=== PATIENT | male | born 1945 | race Caucasian/White ===

== ENCOUNTER 2017-06-16 15:47 | Emergency (ER) | payer MEDICARE, SELFPAY | END 2017-06-16 16:40 | disposition left against medical advice (07) | PROVIDERS: Emergency Provider Nurse Practitioner Family; PCP Internal Medicine Adolescent Medicine | DX: Z53.29 Procedure and treatment not carried out because of patient's decision for other reasons (principal) ==

== ENCOUNTER → 2017-11-04 13:00 | Outpatient (CLI) | payer MEDICARE, SELFPAY ==
--- NOTE | 2017-11-04 13:05 | XR_ITS ---
XR foot LT min 3V HISTORY: Pain and swelling of the toes ITS.REASON: DMII , INFECTION IN TOE ORDERING PHYSICIAN: Bushra Mccarty PATIENT AGE: 72 years COMPARISON: None FINDINGS: Paravertebral deformity involves the second toe. There is some cortical erosive change involving the distal aspect of the distal phalanx of the second toe suggesting osteomyelitis. No obvious soft tissue gas. No fracture or dislocation. IMPRESSION: Hammertoe deformity of the second toe with erosive change involving the tuft of the distal phalanx consistent with osteomyelitis
== END ==
PROVIDERS: PCP Internal Medicine Adolescent Medicine; Visit Provider Nurse Practitioner Family
DX: L08.9 Local infection of the skin and subcutaneous tissue, unspecified (principal); E11.9 Type 2 diabetes mellitus without complications
CPT/HCPCS: 73630

== ENCOUNTER 2017-11-07 12:20 | Outpatient (CLI) | payer MEDICARE, SELFPAY ==
[2017-11-07] VITALS (7 sets, daily range): BP systolic 117–133; BP diastolic 71–83; PULSE 65–83; RESP 18; TEMP 36.8; O2SAT 96; BMI 37.1
[2017-11-07 13:25] LABS: Anion Gap 17.2 mEq/L (5-15); Blood Urea Nitrogen 20 mg/dL (7-18); Calcium 9.9 mg/dL (8.5-10.1); Carbon Dioxide 23 mmol/L (21.0-32.0); Chloride 103 mmol/L (98-107); Creatinine Clearance Estimated 110 mL/min (0-300); Creatinine,Serum 1.12 mg/dL (0.70-1.30); Estimated Glomerular Filt Rate 64 ml/min (>60); GFR (African American) 78 ML/MIN (>60); Glucose 115 mg/dL (74-106); Sodium 139 mmol/L (136-145)
[2017-11-07 13:27] LABS: Potassium 4.2 mmoL/L (3.5-5.1)
--- NOTE | 2017-11-07 15:28 | XR_ITS ---
XR chest portable PICC plac HISTORY: ITS.REASON: PICC line placement ORDERING PHYSICIAN: Jignesh Madsen MD PATIENT AGE: 72 years COMPARISON: 06/06/2012 FINDINGS: Left upper extremity PICC line tip is in good position in the region superior vena cava. Unremarkable cardiovascular structures with clear lungs. 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 IMPRESSION: PICC line in good position
--- NOTE | 2017-11-09 09:51 | HMH.PHACONS ---
- Pharmacy Consult Date: 11/07/17 Time: 13:00 Referring provider: DR. SHEEHAN Reason for Consult:: VANCOMYCIN DOSING Allergies and ADEs:: Allergies Allergy/AdvReac Type Severity Reaction Status Date / Time tetanus and diphtheria Allergy Unknown Verified 11/07/17 16:00 toxoids [TETANUS AND DIPHTHERIA TOXOIDS] Home Medications:: Home Medications Medication Instructions Recorded Confirmed Type alprazolam 0.5 mg tablet 0.5 mg PO BID 30 Days #90 11/07/17 11/08/17 History dutasteride 0.5 mg capsule 0.5 mg PO HS 90 Days 11/07/17 11/08/17 History fenofibrate nanocrystallized 145 145 mg PO DAILY 90 Days 11/07/17 11/08/17 History mg tablet fluticasone 250 mcg-salmeterol 50 1 puff INHALATION BID 30 Days 11/07/17 11/08/17 History mcg/dose blistr powdr for inhalation fluticasone 50 mcg/actuation nasal 1 spray INTRANASAL NEEDED PRN 11/07/17 11/08/17 History spray,suspension 30 Days levothyroxine 175 mcg tablet 175 mcg PO DAILY 30 Days 11/07/17 11/08/17 History lvxaza-ullhuygs-mkfzcmz 1 cap PO AC 30 Days 11/07/17 11/08/17 History 24,000-76,000-120,000 unit capsule,delayed rel losartan 25 mg tablet 25 mg PO DAILY 30 Days 11/07/17 11/08/17 History montelukast 10 mg tablet 10 mg PO DAILY 30 Days 11/07/17 11/08/17 History tamsulosin 0.4 mg capsule 0.4 mg PO HS 90 Days 11/07/17 11/08/17 History Height: 1.91 m Weight: 134.717 kg Laboratory Results:: N/A Assessment and Plan - Assessment and plan all Dx Assessment and Plan for all problems:: BASED ON PATIENT FACTORS, RECOMMEND STARTING DOSE OF VANCOMYCIN 2,500MG IV ONCE ON 11/07/17 FOLLOWED BY 2,000MG IV BID STARTING ON 11/08/17. PHARMACY WILL OBTAIN TROUGH LEVEL PRIOR TO AM DOSE ON 11/09/17. PHARMACY WILL CONTINUE TO FOLLOW AND ADJUST DOSE NEEDED. -BRYAN MANRIQUEZ, JONATHAND
--- NOTE | 2017-11-09 09:56 | P.CONPHA_ITS ---
- Pharmacy Consult Date: 11/07/17 Time: 13:00 Referring provider: DR. SHEEHAN Reason for Consult:: VANCOMYCIN DOSING Allergies and ADEs:: Allergies Allergy/AdvReac Type Severity Reaction Status Date / Time tetanus and diphtheria Allergy Unknown Verified 11/07/17 16:00 toxoids [TETANUS AND DIPHTHERIA TOXOIDS] Home Medications:: Home Medications Medication Instructions Recorded Confirmed Type alprazolam 0.5 mg tablet 0.5 mg PO BID 30 Days #90 11/07/17 11/08/17 History dutasteride 0.5 mg capsule 0.5 mg PO HS 90 Days 11/07/17 11/08/17 History fenofibrate nanocrystallized 145 145 mg PO DAILY 90 Days 11/07/17 11/08/17 History mg tablet fluticasone 250 mcg-salmeterol 50 1 puff INHALATION BID 30 Days 11/07/17 History mcg/dose blistr powdr for inhalation fluticasone 50 mcg/actuation nasal 1 spray INTRANASAL NEEDED PRN 11/07/17 History spray,suspension 30 Days levothyroxine 175 mcg tablet 175 mcg PO DAILY 30 Days 11/07/17 11/08/17 History mzzgxh-zxrfglnh-bjkfjja 1 cap PO AC 30 Days 11/07/17 11/08/17 History 24,000-76,000-120,000 unit capsule,delayed rel losartan 25 mg tablet 25 mg PO DAILY 30 Days 11/07/17 11/08/17 History montelukast 10 mg tablet 10 mg PO DAILY 30 Days 11/07/17 11/08/17 History tamsulosin 0.4 mg capsule 0.4 mg PO HS 90 Days 11/07/17 11/08/17 History Height: 1.91 m Weight: 134.717 kg Laboratory Results:: N/A Assessment and Plan - Assessment and plan all Dx Assessment and Plan for all problems:: BASED ON PATIENT FACTORS, RECOMMEND STARTING DOSE OF VANCOMYCIN 2,500MG IV ONCE ON 11/07/17 FOLLOWED BY 2,000MG IV BID STARTING ON 11/08/17. PHARMACY WILL OBTAIN TROUGH LEVEL PRIOR TO AM DOSE ON 11/09/17. PHARMACY WILL CONTINUE TO FOLLOW AND ADJUST DOSE NEEDED. -BRYAN MANRIQUEZ, JONATHAND
== END 2017-11-07 17:10 | disposition home or self-care (01) ==
LOC: INF 12:32
PROVIDERS: PCP Internal Medicine Adolescent Medicine; Visit Provider Internal Medicine Adolescent Medicine
DX: M86.9 Osteomyelitis, unspecified (principal); L97.524 Non-pressure chronic ulcer of other part of left foot with necrosis of bone; L03.032 Cellulitis of left toe
CPT/HCPCS: 36569; 71045; 80048; 96365; 96366; C1751; J3370

== ENCOUNTER → 2017-11-08 08:18 | Outpatient (CLI) | payer MEDICARE, SELFPAY ==
[2017-11-08 08:38] VITALS: BP 125/80; PULSE 81; RESP 18; TEMP 36.3; O2SAT 97
[2017-11-08 09:10] VITALS: BP 125/78; PULSE 69; RESP 18; TEMP 36.6; O2SAT 97
[2017-11-08 09:40] VITALS: BP 151/74; PULSE 63; RESP 18; O2SAT 96
[2017-11-08 10:10] VITALS: BP 129/76; PULSE 72; RESP 16; TEMP 36.6; O2SAT 98
[2017-11-08 10:40] VITALS: BP 132/80; PULSE 75; RESP 18
[2017-11-08 11:10] VITALS: BP 124/72; PULSE 74; RESP 18; TEMP 36.6; O2SAT 97
== END ==
PROVIDERS: PCP Internal Medicine Adolescent Medicine; Visit Provider Internal Medicine Adolescent Medicine
DX: M86.9 Osteomyelitis, unspecified (principal); L97.524 Non-pressure chronic ulcer of other part of left foot with necrosis of bone; L03.032 Cellulitis of left toe
CPT/HCPCS: 96365; 96366; J3370

== ENCOUNTER → 2017-11-09 08:41 | Outpatient (CLI) | payer MEDICARE, SELFPAY ==
[2017-11-09] VITALS (9 sets, daily range): BP systolic 91–130; BP diastolic 64–79; PULSE 69–103; RESP 18–20; TEMP 36.4–36.7; O2SAT 95–98; BMI 37.1
[2017-11-09 09:11] LABS: Vancomycin,Trough 17.2 mcg/ml (10.0-20.0)
--- NOTE | 2017-11-09 09:17 | PC.NURSE ---
11/09/17 0915 Spoke with Patrick, Pharm D/ informed today's [facility] 17.2
--- NOTE | 2017-11-09 09:20 | HMH.PHACONS ---
- Pharmacy Consult Date: 11/09/17 Time: 09:20 Referring provider: DR. KIMBLE Reason for Consult:: VANCOMYCIN TROUGH LEVEL Allergies and ADEs:: Allergies Allergy/AdvReac Type Severity Reaction Status Date / Time tetanus and diphtheria Allergy Unknown Verified 11/07/17 16:00 toxoids [TETANUS AND DIPHTHERIA TOXOIDS] Home Medications:: Home Medications Medication Instructions Recorded Confirmed Type alprazolam 0.5 mg tablet 0.5 mg PO BID 30 Days #90 11/07/17 11/08/17 History dutasteride 0.5 mg capsule 0.5 mg PO HS 90 Days 11/07/17 11/08/17 History fenofibrate nanocrystallized 145 145 mg PO DAILY 90 Days 11/07/17 11/08/17 History mg tablet fluticasone 250 mcg-salmeterol 50 1 puff INHALATION BID 30 Days 11/07/17 11/08/17 History mcg/dose blistr powdr for inhalation fluticasone 50 mcg/actuation nasal 1 spray INTRANASAL NEEDED PRN 11/07/17 11/08/17 History spray,suspension 30 Days levothyroxine 175 mcg tablet 175 mcg PO DAILY 30 Days 11/07/17 11/08/17 History pnspbx-cfyxgqgn-zvtddob 1 cap PO AC 30 Days 11/07/17 11/08/17 History 24,000-76,000-120,000 unit capsule,delayed rel losartan 25 mg tablet 25 mg PO DAILY 30 Days 11/07/17 11/08/17 History montelukast 10 mg tablet 10 mg PO DAILY 30 Days 11/07/17 11/08/17 History tamsulosin 0.4 mg capsule 0.4 mg PO HS 90 Days 11/07/17 11/08/17 History Height: 1.91 m Weight: 134.717 kg Laboratory Results:: Laboratory Results - last 24 hr 11/09/17 08:47: Vancomycin Trough 17.2 Medical History: Reports:: Asthma, Hyperlipidemia, Hypertension Assessment and Plan - Assessment and plan all Dx Assessment and Plan for all problems:: BASED ON PATIENT'S VANCOMYCIN TROUGH LEVEL OF 17.3 MCG/ML, RECOMMEND CONTINUING WITH CURRENT DOSE OF VANCOMYCIN 2000 MG DAILY AT THIS TIME. PHARMACY WILL FOLLOW DAILY AND ADJUST APPROPRIATE. KILEY BURKETT, PHARMD
== END ==
PROVIDERS: PCP Internal Medicine Adolescent Medicine; Visit Provider Internal Medicine Adolescent Medicine
DX: M86.9 Osteomyelitis, unspecified (principal); L97.524 Non-pressure chronic ulcer of other part of left foot with necrosis of bone; L03.032 Cellulitis of left toe
CPT/HCPCS: 80202; 96365; 96366; G0463; J3370

== ENCOUNTER → 2017-11-10 09:00 | Outpatient (CLI) | payer MEDICARE, SELFPAY ==
[2017-11-10] VITALS (7 sets, daily range): BP systolic 138–156; BP diastolic 64–87; PULSE 78–89; RESP 18–20; TEMP 36.2–36.8; O2SAT 95–99; BMI 37.1
== END ==
PROVIDERS: PCP Internal Medicine Adolescent Medicine; Visit Provider Internal Medicine Adolescent Medicine
DX: M86.9 Osteomyelitis, unspecified (principal); L97.524 Non-pressure chronic ulcer of other part of left foot with necrosis of bone; L03.032 Cellulitis of left toe
CPT/HCPCS: 96365; 96366; G0463; J3370

== ENCOUNTER 2017-11-11 08:10 | Outpatient (CLI) | payer MEDICARE, SELFPAY ==
[2017-11-11 08:17] VITALS: BMI 37.1
[2017-11-11 08:36] LABS: Anion Gap 9.6 mEq/L (5-15); Blood Urea Nitrogen 17 mg/dL (7-18); Calcium 8.8 mg/dL (8.5-10.1); Carbon Dioxide 27 mmol/L (21.0-32.0); Chloride 103 mmol/L (98-107); Creatinine Clearance Estimated 106 mL/min (0-300); Creatinine,Serum 1.16 mg/dL (0.70-1.30); Estimated Glomerular Filt Rate 62 ml/min (>60); GFR (African American) 74 ML/MIN (>60); Glucose 118 mg/dL (74-106); Potassium 3.6 mmoL/L (3.5-5.1); Sodium 136 mmol/L (136-145)
[2017-11-11 08:50] VITALS: BP 142/74; PULSE 70; RESP 18; O2SAT 98
[2017-11-11 09:20] VITALS: BP 123/75; PULSE 68; RESP 18
[2017-11-11 09:42] LABS: Vancomycin,Trough 21.4 mcg/ml (10.0-20.0)
[2017-11-11 09:50] VITALS: BP 139/69; PULSE 77; RESP 18
--- NOTE | 2017-11-11 09:51 | HMH.PHACONS ---
- Pharmacy Consult Date: 11/11/17 Time: 09:51 Referring provider: DR. SHEEHAN Reason for Consult:: VANCOMYCIN LEVEL AND DOSE CHANGE Allergies and ADEs:: Allergies Allergy/AdvReac Type Severity Reaction Status Date / Time tetanus and diphtheria Allergy Unknown Verified 11/07/17 16:00 toxoids [TETANUS AND DIPHTHERIA TOXOIDS] Home Medications:: Home Medications Medication Instructions Recorded Confirmed Type alprazolam 0.5 mg tablet 0.5 mg PO BID 30 Days #90 11/07/17 11/11/17 History dutasteride 0.5 mg capsule 0.5 mg PO HS 90 Days 11/07/17 11/11/17 History fenofibrate nanocrystallized 145 145 mg PO DAILY 90 Days 11/07/17 11/11/17 History mg tablet fluticasone 250 mcg-salmeterol 50 1 puff INHALATION BID 30 Days 11/07/17 11/11/17 History mcg/dose blistr powdr for inhalation fluticasone 50 mcg/actuation nasal 1 spray INTRANASAL NEEDED PRN 11/07/17 11/11/17 History spray,suspension 30 Days levothyroxine 175 mcg tablet 175 mcg PO DAILY 30 Days 11/07/17 11/11/17 History bfiagk-yjjfkawi-spukuxu 1 cap PO AC 30 Days 11/07/17 11/11/17 History 24,000-76,000-120,000 unit capsule,delayed rel losartan 25 mg tablet 25 mg PO DAILY 30 Days 11/07/17 11/11/17 History montelukast 10 mg tablet 10 mg PO DAILY 30 Days 11/07/17 11/11/17 History tamsulosin 0.4 mg capsule 0.4 mg PO HS 90 Days 11/07/17 11/11/17 History Height: 1.91 m Weight: 134.717 kg Laboratory Results:: Laboratory Results - last 24 hr 11/11/17 08:20: Vancomycin Trough 21.4 H 11/11/17 08:20: Sodium 136, Potassium 3.6, Chloride 103, Carbon Dioxide 27, Anion Gap 9.6, BUN 17, Creatinine 1.16, Estimated Creat Clear 106, Estimated GFR 62, Est GFR ( Amer) 74, Glucose 118 H, Calcium 8.8 Medical History: Reports:: Asthma, Hyperlipidemia, Hypertension Assessment and Plan - Assessment and plan all Dx Assessment and Plan for all problems:: PATIENT'S VANCOMYCIN TROUGH LEVEL WAS 21.7 MCG/ML THIS AM PRIOR TO DOSE. PATIENT HAS BEEN RECEIVING VANCOMYCIN 2000 MG Q12H SINCE 11/08. PATIENT RECEIVING VANCOMYCIN 2000 MG X1 DOSE AT THIS TIME. WILL START BACK ON VANCOMYCIN 1500 MG Q12H IN THE AM, 11/12/17. PHARMACY WILL FOLLOW DAILY AND ADJUST APPROPRIATE. KILEY BURKETT, PHARMD
--- NOTE | 2017-11-11 09:54 | P.CONPHA_ITS ---
- Pharmacy Consult Date: 11/11/17 Time: 09:51 Referring provider: DR. SHEEHAN Reason for Consult:: VANCOMYCIN LEVEL AND DOSE CHANGE Allergies and ADEs:: Allergies Allergy/AdvReac Type Severity Reaction Status Date / Time tetanus and diphtheria Allergy Unknown Verified 11/07/17 16:00 toxoids [TETANUS AND DIPHTHERIA TOXOIDS] Home Medications:: Home Medications Medication Instructions Recorded Confirmed Type alprazolam 0.5 mg tablet 0.5 mg PO BID 30 Days #90 11/07/17 11/11/17 History dutasteride 0.5 mg capsule 0.5 mg PO HS 90 Days 11/07/17 11/11/17 History fenofibrate nanocrystallized 145 145 mg PO DAILY 90 Days 11/07/17 11/11/17 History mg tablet fluticasone 250 mcg-salmeterol 50 1 puff INHALATION BID 30 Days 11/07/17 History mcg/dose blistr powdr for inhalation fluticasone 50 mcg/actuation nasal 1 spray INTRANASAL NEEDED PRN 11/07/17 History spray,suspension 30 Days levothyroxine 175 mcg tablet 175 mcg PO DAILY 30 Days 11/07/17 11/11/17 History fyiotc-eiuuqkeu-dyiddgo 1 cap PO AC 30 Days 11/07/17 11/11/17 History 24,000-76,000-120,000 unit capsule,delayed rel losartan 25 mg tablet 25 mg PO DAILY 30 Days 11/07/17 11/11/17 History montelukast 10 mg tablet 10 mg PO DAILY 30 Days 11/07/17 11/11/17 History tamsulosin 0.4 mg capsule 0.4 mg PO HS 90 Days 11/07/17 11/11/17 History Height: 1.91 m Weight: 134.717 kg Laboratory Results:: Laboratory Results - last 24 hr 11/11/17 08:20: Vancomycin Trough 21.4 H 11/11/17 08:20: Sodium 136, Potassium 3.6, Chloride 103, Carbon Dioxide 27, Anion Gap 9.6, BUN 17, Creatinine 1.16, Estimated Creat Clear 106, Estimated GFR 62, Est GFR ( Amer) 74, Glucose 118 H, Calcium 8.8 Medical History: Reports:: Asthma, Hyperlipidemia, Hypertension Assessment and Plan - Assessment and plan all Dx Assessment and Plan for all problems:: PATIENT'S VANCOMYCIN TROUGH LEVEL WAS 21.7 MCG/ML THIS AM PRIOR TO DOSE. PATIENT HAS BEEN RECEIVING VANCOMYCIN 2000 MG Q12H SINCE 11/08. PATIENT RECEIVING VANCOMYCIN 2000 MG X1 DOSE AT THIS TIME. WILL START BACK ON VANCOMYCIN 1500 MG Q12H IN THE AM, 11/12/17. PHARMACY WILL FOLLOW DAILY AND ADJUST APPROPRIATE. KILEY BURKETT, PHARMD
[2017-11-11 10:20] VITALS: BP 145/74; PULSE 78; RESP 18
[2017-11-11 10:50] VITALS: BP 141/79; PULSE 73; RESP 18
== END 2017-11-11 11:10 | disposition home or self-care (01) ==
LOC: INF 08:31
PROVIDERS: PCP Internal Medicine Adolescent Medicine; Visit Provider Internal Medicine Adolescent Medicine
DX: M86.9 Osteomyelitis, unspecified (principal); L97.524 Non-pressure chronic ulcer of other part of left foot with necrosis of bone; L03.032 Cellulitis of left toe
CPT/HCPCS: 80048; 80202; 96365; 96366; J3370

== ENCOUNTER 2017-11-12 07:58 | Outpatient (CLI) | payer MEDICARE, SELFPAY ==
[2017-11-12 08:10] VITALS: BP 136/78; PULSE 71; RESP 18; TEMP 36.7; O2SAT 95
[2017-11-12 08:15] VITALS: BP 145/82; PULSE 79; RESP 18; TEMP 36.3; O2SAT 95; BMI 36.7
[2017-11-12 08:35] VITALS: BP 136/78; PULSE 71; RESP 18; TEMP 36.7; O2SAT 95; BMI 36.7
[2017-11-12 09:30] VITALS: BP 130/74; PULSE 74; RESP 18; O2SAT 96
--- NOTE | 2017-11-12 09:47 | PC.NURSE ---
PATIENT PROVIDED WITH A BREAKFAST TRAY. 100% OF MEAL CONSUMED. PATIENT HAS NO COMPLAINTS OR REQUEST AT THIS TIME.
[2017-11-12 22:20] VITALS: BP 134/77; PULSE 70; RESP 18; TEMP 36.8; O2SAT 95
== END 2017-11-12 10:20 | disposition home or self-care (01) ==
LOC: INF 07:58
PROVIDERS: PCP Internal Medicine Adolescent Medicine; Visit Provider Internal Medicine Adolescent Medicine
DX: M86.9 Osteomyelitis, unspecified (principal); L97.524 Non-pressure chronic ulcer of other part of left foot with necrosis of bone; L03.032 Cellulitis of left toe
CPT/HCPCS: 96365; 96366; J3370

== ENCOUNTER → 2017-11-13 08:00 | Outpatient (CLI) | payer MEDICARE, SELFPAY ==
[2017-11-13 08:16] VITALS: BP 126/74; PULSE 69; RESP 20; TEMP 36.6; O2SAT 96
[2017-11-13 21:10] VITALS: BP 144/88; PULSE 70; RESP 20; TEMP 37.1
[2017-11-13 22:48] VITALS: BP 136/92; PULSE 77; RESP 20; TEMP 36.6; O2SAT 97
== END ==
PROVIDERS: PCP Internal Medicine Adolescent Medicine; Visit Provider Internal Medicine Adolescent Medicine
DX: M86.9 Osteomyelitis, unspecified (principal); L97.524 Non-pressure chronic ulcer of other part of left foot with necrosis of bone; L03.032 Cellulitis of left toe
CPT/HCPCS: 96365; 96366; J3370

== ENCOUNTER → 2017-11-14 09:07 | Outpatient (CLI) | payer MEDICARE, SELFPAY ==
[2017-11-14] VITALS (7 sets, daily range): BP systolic 132–153; BP diastolic 69–90; PULSE 75–93; RESP 14–20; TEMP 36.6–37.3; O2SAT 96–98; BMI 37.1; BMI 37.2
[2017-11-14 08:44] LABS: Anion Gap 10.6 mEq/L (5-15); Blood Urea Nitrogen 17 mg/dL (7-18); Calcium 8.7 mg/dL (8.5-10.1); Carbon Dioxide 28 mmol/L (21.0-32.0); Chloride 104 mmol/L (98-107); Creatinine Clearance Estimated 107 mL/min (0-300); Creatinine,Serum 1.15 mg/dL (0.70-1.30); Estimated Glomerular Filt Rate 62 ml/min (>60); GFR (African American) 75 ML/MIN (>60); Glucose 107 mg/dL (74-106); Potassium 3.6 mmoL/L (3.5-5.1); Sodium 139 mmol/L (136-145)
[2017-11-14 08:45] LABS: Vancomycin,Trough 17.5 mcg/ml (10.0-20.0)
--- NOTE | 2017-11-14 09:07 | HMH.PHACONS ---
- Pharmacy Consult Date: 11/14/17 Time: 09:07 Referring provider: DR. SHEEHAN Reason for Consult:: VANCOMYCIN TROUGH LEVEL Allergies and ADEs:: Allergies Allergy/AdvReac Type Severity Reaction Status Date / Time tetanus and diphtheria Allergy Unknown Verified 11/07/17 16:00 toxoids [TETANUS AND DIPHTHERIA TOXOIDS] Home Medications:: Home Medications Medication Instructions Recorded Confirmed Type alprazolam 0.5 mg tablet 0.5 mg PO BID 30 Days #90 11/07/17 11/14/17 History dutasteride 0.5 mg capsule 0.5 mg PO HS 90 Days 11/07/17 11/14/17 History fenofibrate nanocrystallized 145 145 mg PO DAILY 90 Days 11/07/17 11/14/17 History mg tablet fluticasone 250 mcg-salmeterol 50 1 puff INHALATION BID 30 Days 11/07/17 11/14/17 History mcg/dose blistr powdr for inhalation fluticasone 50 mcg/actuation nasal 1 spray INTRANASAL NEEDED PRN 11/07/17 11/14/17 History spray,suspension 30 Days levothyroxine 175 mcg tablet 175 mcg PO DAILY 30 Days 11/07/17 11/14/17 History czhjoh-ejnvkdey-atbobfh 1 cap PO AC 30 Days 11/07/17 11/14/17 History 24,000-76,000-120,000 unit capsule,delayed rel losartan 25 mg tablet 25 mg PO DAILY 30 Days 11/07/17 11/14/17 History montelukast 10 mg tablet 10 mg PO DAILY 30 Days 11/07/17 11/14/17 History tamsulosin 0.4 mg capsule 0.4 mg PO HS 90 Days 11/07/17 11/14/17 History Height: 1.91 m Weight: 134.717 kg Laboratory Results:: Laboratory Results - last 24 hr 11/14/17 08:25: Vancomycin Trough 17.5 11/14/17 08:25: Sodium 139, Potassium 3.6, Chloride 104, Carbon Dioxide 28, Anion Gap 10.6, BUN 17, Creatinine 1.15, Estimated Creat Clear 107, Estimated GFR 62, Est GFR ( Amer) 75, Glucose 107 H, Calcium 8.7 Medical History: Reports:: Asthma, Hyperlipidemia, Hypertension Assessment and Plan - Assessment and plan all Dx Assessment and Plan for all problems:: BASED ON VANCOMYCIN TROUGH LEVEL AND PATIENT FACTORS, RECOMMEND CONTINUING VANCOMYCIN 1500 MG IV Q12H. PHARMACY WILL CONTINUE TO FOLLOW DAILY AND ADJUST APPROPRIATE.
== END ==
PROVIDERS: PCP Internal Medicine Adolescent Medicine; Visit Provider Internal Medicine Adolescent Medicine
DX: M86.9 Osteomyelitis, unspecified (principal); L97.524 Non-pressure chronic ulcer of other part of left foot with necrosis of bone; L03.032 Cellulitis of left toe
CPT/HCPCS: 80048; 80202; 96365; 96366; G0463; J3370

== ENCOUNTER 2017-11-15 09:09 | Outpatient (CLI) | payer MEDICARE, SELFPAY ==
[2017-11-15 09:09] VITALS: BP 122/79; PULSE 86; RESP 20; TEMP 36.9; O2SAT 96
[2017-11-15 09:40] VITALS: BP 123/70; PULSE 68; RESP 20; TEMP 37.1; O2SAT 98
[2017-11-15 10:10] VITALS: BP 123/70; PULSE 66; RESP 20; TEMP 36.9; O2SAT 96
[2017-11-15 10:40] VITALS: BP 128/70; PULSE 68; RESP 20; TEMP 36.9; O2SAT 96
[2017-11-15 11:15] VITALS: BP 136/76; PULSE 68; RESP 20; TEMP 37.1; O2SAT 96
[2017-11-15 20:19] VITALS: BMI 37.1
== END 2017-11-15 11:20 | disposition home or self-care (01) ==
LOC: INF 09:09
PROVIDERS: PCP Internal Medicine Adolescent Medicine; Visit Provider Internal Medicine Adolescent Medicine
DX: M86.9 Osteomyelitis, unspecified (principal); L97.524 Non-pressure chronic ulcer of other part of left foot with necrosis of bone; L03.032 Cellulitis of left toe
CPT/HCPCS: 96365; 96366; J3370

== ENCOUNTER → 2017-11-16 09:05 | Outpatient (CLI) | payer MEDICARE, SELFPAY ==
[2017-11-16] VITALS (7 sets, daily range): BP systolic 108–140; BP diastolic 69–86; PULSE 72–92; RESP 18–20; TEMP 36.4–36.9; O2SAT 96–97
== END ==
PROVIDERS: PCP Internal Medicine Adolescent Medicine; Visit Provider Internal Medicine Adolescent Medicine
DX: M86.9 Osteomyelitis, unspecified (principal); L97.524 Non-pressure chronic ulcer of other part of left foot with necrosis of bone; L03.032 Cellulitis of left toe
CPT/HCPCS: 96365; 96366; G0463; J3370

== ENCOUNTER → 2017-11-17 08:10 | Outpatient (CLI) | payer MEDICARE, SELFPAY ==
[2017-11-17] VITALS (7 sets, daily range): BP systolic 114–138; BP diastolic 60–91; PULSE 71–85; RESP 16–20; TEMP 36.6–36.9; O2SAT 96–97
== END ==
PROVIDERS: PCP Internal Medicine Adolescent Medicine; Visit Provider Internal Medicine Adolescent Medicine
DX: M86.9 Osteomyelitis, unspecified (principal); L97.524 Non-pressure chronic ulcer of other part of left foot with necrosis of bone; L03.032 Cellulitis of left toe
CPT/HCPCS: 96365; 96366; G0463; J3370

== ENCOUNTER 2017-11-18 08:00 | Outpatient (CLI) | payer MEDICARE, SELFPAY ==
[2017-11-17 20:15] VITALS: BP 147/93; PULSE 87; RESP 20; TEMP 36.5; O2SAT 97
[2017-11-18] VITALS (7 sets, daily range): BP systolic 118–149; BP diastolic 70–83; PULSE 66–89; RESP 18–20; TEMP 36.9–37.1; O2SAT 95–97; BMI 37.1
[2017-11-18 08:41] LABS: Anion Gap 11.8 mEq/L (5-15); Blood Urea Nitrogen 15 mg/dL (7-18); Calcium 9.1 mg/dL (8.5-10.1); Carbon Dioxide 28 mmol/L (21.0-32.0); Chloride 104 mmol/L (98-107); Creatinine Clearance Estimated 117 mL/min (0-300); Creatinine,Serum 1.06 mg/dL (0.70-1.30); Estimated Glomerular Filt Rate 68 ml/min (>60); GFR (African American) 83 ML/MIN (>60); Glucose 123 mg/dL (74-106); Potassium 3.8 mmoL/L (3.5-5.1); Sodium 140 mmol/L (136-145)
[2017-11-18 08:58] LABS: Vancomycin,Trough 19.1 mcg/ml (10.0-20.0)
--- NOTE | 2017-11-18 22:18 | PC.NURSE ---
Resting with no c/o pain. Will continue to monitor.
== END 2017-11-18 11:45 | disposition home or self-care (01) ==
LOC: INF 08:15
PROVIDERS: PCP Internal Medicine Adolescent Medicine; Visit Provider Internal Medicine Adolescent Medicine
DX: M86.9 Osteomyelitis, unspecified (principal); L97.524 Non-pressure chronic ulcer of other part of left foot with necrosis of bone; L03.032 Cellulitis of left toe
CPT/HCPCS: 80048; 80202; 96365; 96366; J3370

== ENCOUNTER → 2017-11-19 08:01 | Outpatient (CLI) | payer MEDICARE, SELFPAY ==
[2017-11-19 08:00] VITALS: BP 135/83; PULSE 71; RESP 18; TEMP 36.1; O2SAT 97; BMI 36.2
[2017-11-19 20:05] VITALS: BP 143/96; PULSE 107; RESP 16; TEMP 36.8; O2SAT 97
== END ==
PROVIDERS: PCP Internal Medicine Adolescent Medicine; Visit Provider Internal Medicine Adolescent Medicine
DX: M86.9 Osteomyelitis, unspecified (principal); L97.524 Non-pressure chronic ulcer of other part of left foot with necrosis of bone; L03.032 Cellulitis of left toe
CPT/HCPCS: 96365; 96366; J3370

== ENCOUNTER → 2017-11-20 07:57 | Outpatient (CLI) | payer MEDICARE, SELFPAY ==
[2017-11-20 08:09] VITALS: BP 128/76; PULSE 85; RESP 18; TEMP 36.4; O2SAT 96; BMI 36.2
[2017-11-20 21:39] VITALS: BP 138/79; PULSE 102; RESP 16; TEMP 36.8; O2SAT 100
== END ==
PROVIDERS: PCP Internal Medicine Adolescent Medicine; Visit Provider Internal Medicine Adolescent Medicine
DX: M86.9 Osteomyelitis, unspecified (principal); L97.524 Non-pressure chronic ulcer of other part of left foot with necrosis of bone; L03.032 Cellulitis of left toe
CPT/HCPCS: 96365; 96366; J3370

== ENCOUNTER → 2017-11-21 08:18 | Outpatient (CLI) | payer MEDICARE, SELFPAY ==
[2017-11-21] VITALS (7 sets, daily range): BP systolic 127–138; BP diastolic 64–82; PULSE 78–99; RESP 16–20; TEMP 36.3–36.7; O2SAT 95–97
--- NOTE | 2017-11-22 00:05 | PC.NURSE ---
2200 discharge vital signs 135/62 hr 92 t 98.2 r 16 sat 97
== END ==
PROVIDERS: PCP Internal Medicine Adolescent Medicine; Visit Provider Internal Medicine Adolescent Medicine
DX: M86.9 Osteomyelitis, unspecified (principal); L97.524 Non-pressure chronic ulcer of other part of left foot with necrosis of bone; L03.032 Cellulitis of left toe
CPT/HCPCS: 96365; 96366; G0463; J3370

== ENCOUNTER → 2017-11-22 08:12 | Outpatient (CLI) | payer MEDICARE, SELFPAY ==
[2017-11-22] VITALS (7 sets, daily range): BP systolic 130–151; BP diastolic 76–92; PULSE 66–83; RESP 16–18; TEMP 36.4–36.7; O2SAT 96–98; BMI 36.2
[2017-11-22 08:42] LABS: Anion Gap 14.5 mEq/L (5-15); Blood Urea Nitrogen 16 mg/dL (7-18); Calcium 8.9 mg/dL (8.5-10.1); Carbon Dioxide 25 mmol/L (21.0-32.0); Chloride 103 mmol/L (98-107); Creatinine Clearance Estimated 115 mL/min (0-300); Creatinine,Serum 1.05 mg/dL (0.70-1.30); Estimated Glomerular Filt Rate 69 ml/min (>60); GFR (African American) 84 ML/MIN (>60); Glucose 118 mg/dL (74-106); Potassium 3.5 mmoL/L (3.5-5.1); Sodium 139 mmol/L (136-145)
[2017-11-22 08:47] LABS: Vancomycin,Trough 18.8 mcg/ml (10.0-20.0)
--- NOTE | 2017-11-22 09:08 | HMH.PHACONS ---
- Pharmacy Consult Date: 11/22/17 Time: 09:08 Referring provider: DR. SHEEHAN Reason for Consult:: VANCOMYCIN LEVEL Allergies and ADEs:: Allergies Allergy/AdvReac Type Severity Reaction Status Date / Time tetanus and diphtheria Allergy Unknown Verified 11/07/17 16:00 toxoids [TETANUS AND DIPHTHERIA TOXOIDS] Home Medications:: Home Medications Medication Instructions Recorded Confirmed Type alprazolam 0.5 mg tablet 0.5 mg PO BID 30 Days #90 11/07/17 11/21/17 History dutasteride 0.5 mg capsule 0.5 mg PO HS 90 Days 11/07/17 11/21/17 History fenofibrate nanocrystallized 145 145 mg PO DAILY 90 Days 11/07/17 11/21/17 History mg tablet fluticasone 250 mcg-salmeterol 50 1 puff INHALATION BID 30 Days 11/07/17 11/21/17 History mcg/dose blistr powdr for inhalation fluticasone 50 mcg/actuation nasal 1 spray INTRANASAL NEEDED PRN 11/07/17 11/21/17 History spray,suspension 30 Days levothyroxine 175 mcg tablet 175 mcg PO DAILY 30 Days 11/07/17 11/21/17 History arwrjn-lhqbpvoq-twbjhiy 1 cap PO AC 30 Days 11/07/17 11/21/17 History 24,000-76,000-120,000 unit capsule,delayed rel losartan 25 mg tablet 25 mg PO DAILY 30 Days 11/07/17 11/21/17 History montelukast 10 mg tablet 10 mg PO DAILY 30 Days 11/07/17 11/21/17 History tamsulosin 0.4 mg capsule 0.4 mg PO HS 90 Days 11/07/17 11/21/17 History Height: 1.91 m Weight: 131.542 kg Laboratory Results:: Laboratory Results - last 24 hr 11/22/17 08:18: Sodium 139, Potassium 3.5, Chloride 103, Carbon Dioxide 25, Anion Gap 14.5, BUN 16, Creatinine 1.05, Estimated Creat Clear 115, Estimated GFR 69, Est GFR ( Amer) 84, Glucose 118 H, Calcium 8.9 11/22/17 08:18: Vancomycin Trough 18.8 Medical History: Reports:: Asthma, Hyperlipidemia, Hypertension Assessment and Plan - Assessment and plan all Dx Assessment and Plan for all problems:: PATIENT'S VANCOMYCIN LEVEL WAS 18.8 MCG/ML THIS AM. RECOMMEND CONTINUE WITH CURRENT DOSE OF VANCOMYCIN 1500 MG Q12H AT THIS TIME. PHARMACY WILL FOLLOW DAILY AND ADJUST APPROPRIATE. KILEY BURKETT, JONATHAND
== END ==
PROVIDERS: PCP Internal Medicine Adolescent Medicine; Visit Provider Internal Medicine Adolescent Medicine
DX: M86.9 Osteomyelitis, unspecified (principal); L97.524 Non-pressure chronic ulcer of other part of left foot with necrosis of bone; L03.032 Cellulitis of left toe
CPT/HCPCS: 80048; 80202; 96365; 96366; J3370

== ENCOUNTER → 2017-11-23 07:54 | Outpatient (CLI) | payer MEDICARE, SELFPAY ==
[2017-11-23 08:13] VITALS: BP 165/72; PULSE 88; RESP 18; TEMP 36.9; O2SAT 96; BMI 39.2
[2017-11-23 10:15] VITALS: BP 137/77; PULSE 94; RESP 18; TEMP 36.5; O2SAT 99
[2017-11-23 20:13] VITALS: BP 128/74; PULSE 82; RESP 18; TEMP 36.8; O2SAT 98
== END ==
PROVIDERS: PCP Internal Medicine Adolescent Medicine; Visit Provider Internal Medicine Adolescent Medicine
DX: M86.9 Osteomyelitis, unspecified (principal); L97.524 Non-pressure chronic ulcer of other part of left foot with necrosis of bone; L03.032 Cellulitis of left toe
CPT/HCPCS: 96365; 96366; J3370

== ENCOUNTER → 2017-11-24 08:00 | Outpatient (CLI) | payer MEDICARE, SELFPAY ==
[2017-11-24 08:30] VITALS: BP 110/63; PULSE 74; RESP 18; O2SAT 98
[2017-11-24 09:00] VITALS: BP 130/85; PULSE 83; RESP 18
[2017-11-24 09:30] VITALS: BP 118/71; PULSE 81; RESP 16
[2017-11-24 10:00] VITALS: BP 128/73; PULSE 66; RESP 16
[2017-11-24 10:25] VITALS: BP 125/70; PULSE 69; RESP 18
[2017-11-24 20:26] VITALS: BP 121/82; PULSE 84; RESP 20; TEMP 36.7; O2SAT 97
== END ==
PROVIDERS: PCP Internal Medicine Adolescent Medicine; Visit Provider Internal Medicine Adolescent Medicine
DX: M86.9 Osteomyelitis, unspecified (principal); L97.524 Non-pressure chronic ulcer of other part of left foot with necrosis of bone; L03.032 Cellulitis of left toe
CPT/HCPCS: 96365; 96366; G0463; J3370

== ENCOUNTER → 2017-11-25 08:10 | Outpatient (CLI) | payer MEDICARE, SELFPAY ==
[2017-11-25 08:18] VITALS: BMI 35.9
[2017-11-25 08:45] VITALS: BP 124/78; PULSE 67; RESP 18; TEMP 36.6; O2SAT 96
[2017-11-25 08:45] LABS: Anion Gap 11.8 mEq/L (5-15); Blood Urea Nitrogen 15 mg/dL (7-18); Carbon Dioxide 26 mmol/L (21.0-32.0); Chloride 102 mmol/L (98-107); Creatinine Clearance Estimated 102 mL/min (0-300); Creatinine,Serum 1.17 mg/dL (0.70-1.30); Estimated Glomerular Filt Rate 61 ml/min (>60); GFR (African American) 74 ML/MIN (>60); Glucose 118 mg/dL (74-106); Potassium 3.8 mmoL/L (3.5-5.1); Sodium 136 mmol/L (136-145)
[2017-11-25 08:54] LABS: Vancomycin,Trough 19.6 mcg/ml (10.0-20.0)
--- NOTE | 2017-11-25 09:07 | HMH.PHACONS ---
- Pharmacy Consult Date: 11/25/17 Time: 09:07 Referring provider: DR. SHEEHAN Reason for Consult:: VANCOMYCIN TROUGH LEVEL Allergies and ADEs:: Allergies Allergy/AdvReac Type Severity Reaction Status Date / Time tetanus and diphtheria Allergy Unknown Verified 11/07/17 16:00 toxoids [TETANUS AND DIPHTHERIA TOXOIDS] Home Medications:: Home Medications Medication Instructions Recorded Confirmed Type alprazolam 0.5 mg tablet 0.5 mg PO BID 30 Days #90 11/07/17 11/25/17 History dutasteride 0.5 mg capsule 0.5 mg PO HS 90 Days 11/07/17 11/25/17 History fenofibrate nanocrystallized 145 145 mg PO DAILY 90 Days 11/07/17 11/25/17 History mg tablet fluticasone 250 mcg-salmeterol 50 1 puff INHALATION BID 30 Days 11/07/17 11/25/17 History mcg/dose blistr powdr for inhalation fluticasone 50 mcg/actuation nasal 1 spray INTRANASAL NEEDED PRN 11/07/17 11/25/17 History spray,suspension 30 Days levothyroxine 175 mcg tablet 175 mcg PO DAILY 30 Days 11/07/17 11/25/17 History wugnhy-ebcbgred-cijrxjg 1 cap PO AC 30 Days 11/07/17 11/25/17 History 24,000-76,000-120,000 unit capsule,delayed rel losartan 25 mg tablet 25 mg PO DAILY 30 Days 11/07/17 11/25/17 History montelukast 10 mg tablet 10 mg PO DAILY 30 Days 11/07/17 11/25/17 History tamsulosin 0.4 mg capsule 0.4 mg PO HS 90 Days 11/07/17 11/25/17 History Height: 1.91 m Weight: 130.181 kg Laboratory Results:: Laboratory Results - last 24 hr 11/25/17 08:20: Sodium 136, Potassium 3.8, Chloride 102, Carbon Dioxide 26, Anion Gap 11.8, BUN 15, Creatinine 1.17, Estimated Creat Clear 102, Estimated GFR 61, Est GFR ( Amer) 74, Glucose 118 H, Calcium 9.0, Vancomycin Trough 19.6 Medical History: Reports:: Asthma, Hyperlipidemia, Hypertension Assessment and Plan - Assessment and plan all Dx Assessment and Plan for all problems:: BASED ON PATIENT FACTORS AND VANC TROUGH LEVEL OF 19.6, RECOMMEND CONTINUING VANCOMYCIN 1,500MG IV EVERY 12 HOURS. PHARMACY WILL CONTINUE TO MONITOR AND WILL ADJUST DOSE APPROPRIATE. -BRYAN MANRIQUEZ, JONATHAND
[2017-11-25 09:30] VITALS: BP 126/77; PULSE 77; RESP 18
[2017-11-25 10:15] VITALS: BP 125/70; PULSE 68; RESP 18
[2017-11-25 10:55] VITALS: BP 136/77; PULSE 64; RESP 18
[2017-11-25 20:19] VITALS: BP 152/85; PULSE 89; RESP 20; TEMP 36.7; O2SAT 97
[2017-11-25 22:21] VITALS: BP 155/90; PULSE 84; RESP 18; TEMP 36.2; O2SAT 98
== END ==
PROVIDERS: PCP Internal Medicine Adolescent Medicine; Visit Provider Internal Medicine Adolescent Medicine
DX: M86.9 Osteomyelitis, unspecified (principal); L97.524 Non-pressure chronic ulcer of other part of left foot with necrosis of bone; L03.032 Cellulitis of left toe
CPT/HCPCS: 80048; 80202; 96365; 96366; G0463; J3370

== ENCOUNTER → 2017-11-26 08:06 | Outpatient (CLI) | payer MEDICARE, SELFPAY ==
[2017-11-26 08:29] VITALS: BP 129/86; PULSE 75; RESP 20; TEMP 36.5; O2SAT 97; BMI 35.9
[2017-11-26 09:31] VITALS: BP 111/77; PULSE 79; RESP 22; TEMP 36.8; O2SAT 97
[2017-11-26 10:20] VITALS: BP 133/78; PULSE 74; RESP 20; TEMP 36.7; O2SAT 97
[2017-11-26 20:07] VITALS: BMI 23.3
[2017-11-26 20:08] VITALS: BP 133/81; PULSE 85; RESP 18; TEMP 36.7; O2SAT 95
[2017-11-26 21:57] VITALS: BP 140/74; PULSE 76; RESP 18; TEMP 36.8; O2SAT 96
--- NOTE | 2017-11-26 21:59 | PC.NURSE ---
PT received vancomycin. D/C VS 140/74, 18, 76, 98.3, 96% RA. Left the floor @ 2200.
== END ==
PROVIDERS: PCP Internal Medicine Adolescent Medicine; Visit Provider Internal Medicine Adolescent Medicine
DX: M86.9 Osteomyelitis, unspecified (principal); L97.524 Non-pressure chronic ulcer of other part of left foot with necrosis of bone; L03.032 Cellulitis of left toe
CPT/HCPCS: 96365; G0463; J3370

== ENCOUNTER → 2017-11-27 07:59 | Outpatient (CLI) | payer MEDICARE, SELFPAY ==
[2017-11-27 08:05] VITALS: BP 130/71; PULSE 73; RESP 18; O2SAT 95; BMI 35.9
--- NOTE | 2017-11-27 19:58 | PC.NURSE ---
Pt arrived to med surg for infusion at this time pt alert and oriented and ambulatory no distress noted
[2017-11-27 20:08] VITALS: BMI 35.4
[2017-11-27 20:09] VITALS: BP 141/80; PULSE 94; RESP 18; TEMP 36.9; O2SAT 96
[2017-11-27 22:09] VITALS: BP 131/87; PULSE 71; RESP 17; TEMP 36.9; O2SAT 96
--- NOTE | 2017-11-27 22:10 | PC.NURSE ---
IV INFUSION OF VANC COMPLETED AT THIS TIME VSS NO DISTRESS NOTED PT DISCHARGED
== END ==
PROVIDERS: PCP Internal Medicine Adolescent Medicine; Visit Provider Internal Medicine Adolescent Medicine
DX: M86.9 Osteomyelitis, unspecified (principal); L97.524 Non-pressure chronic ulcer of other part of left foot with necrosis of bone; L03.032 Cellulitis of left toe
CPT/HCPCS: 96365; 96366; J3370

== ENCOUNTER → 2017-11-28 08:00 | Outpatient (CLI) | payer MEDICARE, SELFPAY ==
[2017-11-28 08:45] VITALS: BP 134/79; PULSE 69; RESP 18; O2SAT 96
[2017-11-28 09:45] VITALS: BP 126/78; PULSE 81; RESP 18
[2017-11-28 10:40] VITALS: BP 129/70; PULSE 63; RESP 18
[2017-11-28 20:20] VITALS: BP 146/83; PULSE 84; RESP 20; TEMP 36.5; O2SAT 97
[2017-11-28 22:18] VITALS: BP 132/81; PULSE 68; RESP 18; TEMP 36.9; O2SAT 98
== END ==
PROVIDERS: PCP Internal Medicine Adolescent Medicine; Visit Provider Internal Medicine Adolescent Medicine
DX: M86.9 Osteomyelitis, unspecified (principal); L97.524 Non-pressure chronic ulcer of other part of left foot with necrosis of bone; L03.032 Cellulitis of left toe
CPT/HCPCS: 96365; 96366; G0463; J3370

== ENCOUNTER → 2017-11-29 08:18 | Outpatient (CLI) | payer MEDICARE, SELFPAY ==
[2017-11-29 08:31] VITALS: BMI 27.3
[2017-11-29 08:55] LABS: Anion Gap 11.8 mEq/L (5-15); Blood Urea Nitrogen 16 mg/dL (7-18); Calcium 9.2 mg/dL (8.5-10.1); Carbon Dioxide 26 mmol/L (21.0-32.0); Chloride 104 mmol/L (98-107); Creatinine Clearance Estimated 86 mL/min (0-300); Creatinine,Serum 1.06 mg/dL (0.70-1.30); Estimated Glomerular Filt Rate 68 ml/min (>60); GFR (African American) 83 ML/MIN (>60); Glucose 112 mg/dL (74-106); Potassium 3.8 mmoL/L (3.5-5.1); Sodium 138 mmol/L (136-145)
[2017-11-29 08:57] LABS: Vancomycin,Trough 19.4 mcg/ml (10.0-20.0)
[2017-11-29 20:24] VITALS: BP 135/82; PULSE 79; RESP 20; TEMP 36.9; O2SAT 97
[2017-11-29 22:24] VITALS: BP 144/88; PULSE 71; RESP 20; TEMP 36.6; O2SAT 97
== END ==
PROVIDERS: PCP Internal Medicine Adolescent Medicine; Visit Provider Internal Medicine Adolescent Medicine
DX: M86.9 Osteomyelitis, unspecified (principal); L97.524 Non-pressure chronic ulcer of other part of left foot with necrosis of bone; L03.032 Cellulitis of left toe
CPT/HCPCS: 80048; 80202; 96365; G0463; J3370

== ENCOUNTER → 2017-11-30 08:13 | Outpatient (CLI) | payer MEDICARE, SELFPAY ==
[2017-11-30] VITALS (7 sets, daily range): BP systolic 122–149; BP diastolic 69–91; PULSE 73–103; RESP 18–20; TEMP 36.5–36.6; O2SAT 96–97; BMI 35.4
== END ==
PROVIDERS: PCP Internal Medicine Adolescent Medicine; Visit Provider Internal Medicine Adolescent Medicine
DX: M86.9 Osteomyelitis, unspecified (principal); L97.524 Non-pressure chronic ulcer of other part of left foot with necrosis of bone; L03.032 Cellulitis of left toe
CPT/HCPCS: 96365; 96366; J3370

== ENCOUNTER → 2017-12-01 08:00 | Outpatient (CLI) | payer MEDICARE, SELFPAY ==
[2017-12-01] VITALS (7 sets, daily range): BP systolic 128–154; BP diastolic 71–78; PULSE 81–90; RESP 18; TEMP 36.6–36.8; O2SAT 95–98; BMI 78.0
== END ==
PROVIDERS: PCP Internal Medicine Adolescent Medicine; Visit Provider Internal Medicine Adolescent Medicine
DX: M86.9 Osteomyelitis, unspecified (principal); L97.524 Non-pressure chronic ulcer of other part of left foot with necrosis of bone; L03.032 Cellulitis of left toe
CPT/HCPCS: 96365; 96366; G0463; J3370

== ENCOUNTER → 2017-12-02 08:17 | Outpatient (CLI) | payer MEDICARE, SELFPAY ==
[2017-12-02 08:26] VITALS: BP 109/83; PULSE 82; RESP 18; TEMP 36.4; O2SAT 96
[2017-12-02 08:56] VITALS: BP 141/84; PULSE 87; RESP 18; O2SAT 97
[2017-12-02 09:26] VITALS: BP 149/81; PULSE 84; RESP 18; O2SAT 97
[2017-12-02 09:56] VITALS: BP 139/80; PULSE 88; RESP 18; O2SAT 96
[2017-12-02 10:35] VITALS: BP 144/79; PULSE 86; RESP 18; O2SAT 96
[2017-12-02 22:12] VITALS: BP 132/79; PULSE 73; RESP 16; TEMP 36.6; O2SAT 97
== END ==
PROVIDERS: PCP Internal Medicine Adolescent Medicine; Visit Provider Internal Medicine Adolescent Medicine
DX: M86.9 Osteomyelitis, unspecified (principal); L97.524 Non-pressure chronic ulcer of other part of left foot with necrosis of bone; L03.032 Cellulitis of left toe
CPT/HCPCS: 96365; 96366; J3370

== ENCOUNTER → 2017-12-03 08:02 | Outpatient (CLI) | payer MEDICARE, SELFPAY ==
[2017-12-03 08:00] VITALS: BMI 35.4
[2017-12-03 08:30] VITALS: BP 128/74; BP 132/78; PULSE 85; RESP 18; TEMP 36.5; TEMP 36.7; O2SAT 99; BMI 35.4
[2017-12-03 09:02] LABS: Anion Gap 9.9 mEq/L (5-15); Blood Urea Nitrogen 19 mg/dL (7-18); Calcium 9.4 mg/dL (8.5-10.1); Carbon Dioxide 27 mmol/L (21.0-32.0); Chloride 106 mmol/L (98-107); Creatinine Clearance Estimated 97 mL/min (0-300); Creatinine,Serum 1.21 mg/dL (0.70-1.30); Estimated Glomerular Filt Rate 59 ml/min (>60); GFR (African American) 71 ML/MIN (>60); Glucose 110 mg/dL (74-106); Potassium 3.9 mmoL/L (3.5-5.1); Sodium 139 mmol/L (136-145)
--- NOTE | 2017-12-03 09:51 | HMH.PHACONS ---
- Pharmacy Consult Date: 12/03/17 Time: 09:51 Referring provider: DR. SHEEHAN Reason for Consult:: VANCOMYCIN DOSING Allergies and ADEs:: Allergies Allergy/AdvReac Type Severity Reaction Status Date / Time tetanus and diphtheria Allergy Unknown Verified 11/26/17 20:10 toxoids [TETANUS AND DIPHTHERIA TOXOIDS] Home Medications:: Home Medications Medication Instructions Recorded Confirmed Type alprazolam 0.5 mg tablet 0.5 mg PO BID 30 Days #90 11/07/17 12/02/17 History dutasteride 0.5 mg capsule 0.5 mg PO HS 90 Days 11/07/17 12/02/17 History fenofibrate nanocrystallized 145 145 mg PO DAILY 90 Days 11/07/17 12/02/17 History mg tablet fluticasone 250 mcg-salmeterol 50 1 puff INHALATION BID 30 Days 11/07/17 12/02/17 History mcg/dose blistr powdr for inhalation fluticasone 50 mcg/actuation nasal 1 spray INTRANASAL NEEDED PRN 11/07/17 12/02/17 History spray,suspension 30 Days levothyroxine 175 mcg tablet 175 mcg PO DAILY 30 Days 11/07/17 12/02/17 History rmbqdh-zrsjqlxp-mhkdxeo 1 cap PO AC 30 Days 11/07/17 12/02/17 History 24,000-76,000-120,000 unit capsule,delayed rel losartan 25 mg tablet 25 mg PO DAILY 30 Days 11/07/17 12/02/17 History montelukast 10 mg tablet 10 mg PO DAILY 30 Days 11/07/17 12/02/17 History tamsulosin 0.4 mg capsule 0.4 mg PO HS 90 Days 11/07/17 12/02/17 History Height: 1.91 m Weight: 128.367 kg Laboratory Results:: Laboratory Results - last 24 hr 12/03/17 08:20: Sodium 139, Potassium 3.9, Chloride 106, Carbon Dioxide 27, Anion Gap 9.9, BUN 19 H, Creatinine 1.21, Estimated Creat Clear 97, Estimated GFR 59, Est GFR ( Amer) 71, Glucose 110 H, Calcium 9.4, Vancomycin Trough 20.0 Medical History: Reports:: Asthma, Hyperlipidemia, Hypertension Assessment and Plan - Assessment and plan all Dx Assessment and Plan for all problems:: BASED ON PATIENT FACTORS AND VANCOMYCIN TROUGH LEVEL OF 20.0, RECOMMEND DECREASING DOSE TO 1,250MG IV Q12H. PATIENT HAS HAD AN INCREASE IN SCR, WHICH ALSO LED TO A DECREASE IN DOSE. PHARMACY WILL CONTINUE TO MONITOR AND WILL ADJUST DOSE APPROPRIATE. -JONATHAN VELARDED
--- NOTE | 2017-12-03 09:54 | P.CONPHA_ITS ---
- Pharmacy Consult Date: 12/03/17 Time: 09:51 Referring provider: DR. SHEEHAN Reason for Consult:: VANCOMYCIN DOSING Allergies and ADEs:: Allergies Allergy/AdvReac Type Severity Reaction Status Date / Time tetanus and diphtheria Allergy Unknown Verified 11/26/17 20:10 toxoids [TETANUS AND DIPHTHERIA TOXOIDS] Home Medications:: Home Medications Medication Instructions Recorded Confirmed Type alprazolam 0.5 mg tablet 0.5 mg PO BID 30 Days #90 11/07/17 12/02/17 History dutasteride 0.5 mg capsule 0.5 mg PO HS 90 Days 11/07/17 12/02/17 History fenofibrate nanocrystallized 145 145 mg PO DAILY 90 Days 11/07/17 12/02/17 History mg tablet fluticasone 250 mcg-salmeterol 50 1 puff INHALATION BID 30 Days 11/07/17 History mcg/dose blistr powdr for inhalation fluticasone 50 mcg/actuation nasal 1 spray INTRANASAL NEEDED PRN 11/07/17 History spray,suspension 30 Days levothyroxine 175 mcg tablet 175 mcg PO DAILY 30 Days 11/07/17 12/02/17 History jvooen-oxkaifga-fsbhzqb 1 cap PO AC 30 Days 11/07/17 12/02/17 History 24,000-76,000-120,000 unit capsule,delayed rel losartan 25 mg tablet 25 mg PO DAILY 30 Days 11/07/17 12/02/17 History montelukast 10 mg tablet 10 mg PO DAILY 30 Days 11/07/17 12/02/17 History tamsulosin 0.4 mg capsule 0.4 mg PO HS 90 Days 11/07/17 12/02/17 History Height: 1.91 m Weight: 128.367 kg Laboratory Results:: Laboratory Results - last 24 hr 12/03/17 08:20: Sodium 139, Potassium 3.9, Chloride 106, Carbon Dioxide 27, Anion Gap 9.9, BUN 19 H, Creatinine 1.21, Estimated Creat Clear 97, Estimated GFR 59, Est GFR ( Amer) 71, Glucose 110 H, Calcium 9.4, Vancomycin Trough 20.0 Medical History: Reports:: Asthma, Hyperlipidemia, Hypertension Assessment and Plan - Assessment and plan all Dx Assessment and Plan for all problems:: BASED ON PATIENT FACTORS AND VANCOMYCIN TROUGH LEVEL OF 20.0, RECOMMEND DECREASING DOSE TO 1,250MG IV Q12H. PATIENT HAS HAD AN INCREASE IN SCR, WHICH ALSO LED TO A DECREASE IN DOSE. PHARMACY WILL CONTINUE TO MONITOR AND WILL ADJUST DOSE APPROPRIATE. -JONATHAN VELARDED
[2017-12-03 20:00] VITALS: BP 146/80; PULSE 94; RESP 18; TEMP 36.9; O2SAT 97
[2017-12-03 22:30] VITALS: BP 156/85; PULSE 88; RESP 16; TEMP 36.9; O2SAT 95
== END ==
PROVIDERS: PCP Internal Medicine Adolescent Medicine; Visit Provider Internal Medicine Adolescent Medicine
DX: M86.9 Osteomyelitis, unspecified (principal); L97.524 Non-pressure chronic ulcer of other part of left foot with necrosis of bone; L03.032 Cellulitis of left toe
CPT/HCPCS: 80048; 80202; 96365; 96366; J3370

== ENCOUNTER → 2017-12-04 08:02 | Outpatient (CLI) | payer MEDICARE, SELFPAY ==
[2017-12-04 08:21] VITALS: BP 115/65; PULSE 90; RESP 18; TEMP 36.7; O2SAT 100; BMI 35.4
[2017-12-04 09:21] VITALS: BP 136/70; PULSE 90; RESP 18; TEMP 36.8; O2SAT 98
[2017-12-04 20:10] VITALS: BP 159/92; PULSE 74; RESP 20; TEMP 36.7; O2SAT 94
[2017-12-04 22:30] VITALS: BP 133/82; PULSE 84; RESP 18; TEMP 36.9; O2SAT 96
== END ==
PROVIDERS: PCP Internal Medicine Adolescent Medicine; Visit Provider Internal Medicine Adolescent Medicine
DX: M86.9 Osteomyelitis, unspecified (principal); L97.524 Non-pressure chronic ulcer of other part of left foot with necrosis of bone; L03.032 Cellulitis of left toe
CPT/HCPCS: 96365; 96366; J3370

== ENCOUNTER → 2017-12-05 08:06 | Outpatient (CLI) | payer MEDICARE, SELFPAY ==
[2017-12-05 08:30] VITALS: BP 132/70; PULSE 67; RESP 18; TEMP 36.3; O2SAT 98
[2017-12-05 09:37] VITALS: BP 109/68; PULSE 101; RESP 18
[2017-12-05 10:00] VITALS: BP 142/76; PULSE 89; RESP 18
[2017-12-05 10:35] VITALS: BP 126/81; PULSE 81; RESP 18
[2017-12-05 10:55] VITALS: BP 156/85; PULSE 70; RESP 18; TEMP 37; O2SAT 97
[2017-12-05 19:55] VITALS: BMI 35.0
== END ==
PROVIDERS: PCP Internal Medicine Adolescent Medicine; Visit Provider Internal Medicine Adolescent Medicine
DX: M86.9 Osteomyelitis, unspecified (principal); L97.524 Non-pressure chronic ulcer of other part of left foot with necrosis of bone; L03.032 Cellulitis of left toe
CPT/HCPCS: 96365; 96366; J3370

== ENCOUNTER → 2017-12-06 08:05 | Outpatient (CLI) | payer MEDICARE, SELFPAY ==
[2017-12-06 08:30] VITALS: BP 123/67; PULSE 69; RESP 18; TEMP 36.2; O2SAT 95
[2017-12-06 09:00] VITALS: BP 135/73; PULSE 94; RESP 18
[2017-12-06 10:00] VITALS: BP 143/75; PULSE 90; RESP 18; O2SAT 90
[2017-12-06 10:30] VITALS: BP 120/82; PULSE 81; RESP 18
== END ==
PROVIDERS: PCP Internal Medicine Adolescent Medicine; Visit Provider Internal Medicine Adolescent Medicine
DX: M86.9 Osteomyelitis, unspecified (principal); L97.524 Non-pressure chronic ulcer of other part of left foot with necrosis of bone; L03.032 Cellulitis of left toe
CPT/HCPCS: 96365; 96366; J3370

== ENCOUNTER → 2017-12-07 08:10 | Outpatient (CLI) | payer MEDICARE, SELFPAY ==
[2017-12-07] VITALS (9 sets, daily range): BP systolic 116–144; BP diastolic 68–88; PULSE 69–86; RESP 16–20; TEMP 36.4–36.6; O2SAT 96–98; BMI 35.6
[2017-12-07 08:52] LABS: Anion Gap 9.8 mEq/L (5-15); Blood Urea Nitrogen 19 mg/dL (7-18); Calcium 8.9 mg/dL (8.5-10.1); Carbon Dioxide 27 mmol/L (21.0-32.0); Chloride 104 mmol/L (98-107); Creatinine Clearance Estimated 114 mL/min (0-300); Creatinine,Serum 1.04 mg/dL (0.70-1.30); Estimated Glomerular Filt Rate 70 ml/min (>60); GFR (African American) 84 ML/MIN (>60); Glucose 115 mg/dL (74-106); Sodium 137 mmol/L (136-145)
[2017-12-07 08:55] LABS: Potassium 3.8 mmoL/L (3.5-5.1)
--- NOTE | 2017-12-07 09:31 | PC.NURSE ---
12/07/17 0910 Spoke with lab regarding vancomycin trough results/ results not available at this time. Lab running trough level at this time per report of Ct.
[2017-12-07 09:40] LABS: Vancomycin,Trough 15.7 mcg/ml (10.0-20.0)
[2017-12-07 09:46] LABS: Erythrocyte Sedimentation Rate 16 mm/hr (0-20)
--- NOTE | 2017-12-07 09:47 | PC.NURSE ---
12/07/17 0935 Telephone results for vanc trough received by telephoning lab. Vanc trough 15.7 result called to Temitope Doherty D at this time for today's vanc dosing.
--- NOTE | 2017-12-07 09:58 | PC.NURSE ---
12/07/17 [id number]oke with Maty at Dr. Madsen's office. Order given for sed rate per pt request. Also informed by Maty that Dr. Madsen is going to review office/consult note from Dr. Thayer, pt's heat [employer], regarding possibility of changing pt to oral antibiotics/ Dr. Madsen to then consult with Marla Mccarty APRN regarding future orders for pt and possibility of changing to po antibiotics/discontinuing IV Vanc.
--- NOTE | 2017-12-07 11:12 | HMH.PHACONS ---
- Pharmacy Consult Date: 12/07/17 Time: 11:13 Referring provider: DR. SHEEHAN Reason for Consult:: VANCOMYCIN LEVEL Allergies and ADEs:: Allergies Allergy/AdvReac Type Severity Reaction Status Date / Time tetanus and diphtheria Allergy Unknown Verified 11/26/17 20:10 toxoids [TETANUS AND DIPHTHERIA TOXOIDS] Home Medications:: Home Medications Medication Instructions Recorded Confirmed Type alprazolam 0.5 mg tablet 0.5 mg PO BID 30 Days #90 11/07/17 12/07/17 History dutasteride 0.5 mg capsule 0.5 mg PO HS 90 Days 11/07/17 12/07/17 History fenofibrate nanocrystallized 145 145 mg PO DAILY 90 Days 11/07/17 12/07/17 History mg tablet fluticasone 250 mcg-salmeterol 50 1 puff INHALATION BID 30 Days 11/07/17 12/07/17 History mcg/dose blistr powdr for inhalation fluticasone 50 mcg/actuation nasal 1 spray INTRANASAL NEEDED PRN 11/07/17 12/07/17 History spray,suspension 30 Days levothyroxine 175 mcg tablet 175 mcg PO DAILY 30 Days 11/07/17 12/07/17 History glstzw-jishtypv-rhhldut 1 cap PO AC 30 Days 11/07/17 12/07/17 History 24,000-76,000-120,000 unit capsule,delayed rel losartan 25 mg tablet 25 mg PO DAILY 30 Days 11/07/17 12/07/17 History montelukast 10 mg tablet 10 mg PO DAILY 30 Days 11/07/17 12/07/17 History tamsulosin 0.4 mg capsule 0.4 mg PO HS 90 Days 11/07/17 12/07/17 History Height: 1.91 m Weight: 129.274 kg Laboratory Results:: Laboratory Results - last 24 hr 12/07/17 08:35: Sodium 137, Potassium 3.8, Chloride 104, Carbon Dioxide 27, Anion Gap 9.8, BUN 19 H, Creatinine 1.04, Estimated Creat Clear 114, Estimated GFR 70, Est GFR ( Amer) 84, Glucose 115 H, Calcium 8.9 12/07/17 08:35: ESR 16 12/07/17 08:38: Vancomycin Trough 15.7 Medical History: Reports:: Asthma, Hyperlipidemia, Hypertension Assessment and Plan - Assessment and plan all Dx Assessment and Plan for all problems:: BASED ON PATIENT'S VANCOMYCIN TROUGH LEVEL OF 15.7 MCG/ML, RECOMMEND PATIENT CONTINUE WITH CURRENT DOSE AND INTERVAL OF VANCOMYCIN 1250 MG Q12H AT THIS TIME. PHARMACY WILL FOLLOW DAILY AND ADJUST APPROPRIATE. KILEY BURKETT,PHARMD
--- NOTE | 2017-12-07 11:15 | P.CONPHA_ITS ---
- Pharmacy Consult Date: 12/07/17 Time: 11:13 Referring provider: DR. SHEEHAN Reason for Consult:: VANCOMYCIN LEVEL Allergies and ADEs:: Allergies Allergy/AdvReac Type Severity Reaction Status Date / Time tetanus and diphtheria Allergy Unknown Verified 11/26/17 20:10 toxoids [TETANUS AND DIPHTHERIA TOXOIDS] Home Medications:: Home Medications Medication Instructions Recorded Confirmed Type alprazolam 0.5 mg tablet 0.5 mg PO BID 30 Days #90 11/07/17 12/07/17 History dutasteride 0.5 mg capsule 0.5 mg PO HS 90 Days 11/07/17 12/07/17 History fenofibrate nanocrystallized 145 145 mg PO DAILY 90 Days 11/07/17 12/07/17 History mg tablet fluticasone 250 mcg-salmeterol 50 1 puff INHALATION BID 30 Days 11/07/17 History mcg/dose blistr powdr for inhalation fluticasone 50 mcg/actuation nasal 1 spray INTRANASAL NEEDED PRN 11/07/17 History spray,suspension 30 Days levothyroxine 175 mcg tablet 175 mcg PO DAILY 30 Days 11/07/17 12/07/17 History qxaxzo-hhbmfyif-zjognwx 1 cap PO AC 30 Days 11/07/17 12/07/17 History 24,000-76,000-120,000 unit capsule,delayed rel losartan 25 mg tablet 25 mg PO DAILY 30 Days 11/07/17 12/07/17 History montelukast 10 mg tablet 10 mg PO DAILY 30 Days 11/07/17 12/07/17 History tamsulosin 0.4 mg capsule 0.4 mg PO HS 90 Days 11/07/17 12/07/17 History Height: 1.91 m Weight: 129.274 kg Laboratory Results:: Laboratory Results - last 24 hr 12/07/17 08:35: Sodium 137, Potassium 3.8, Chloride 104, Carbon Dioxide 27, Anion Gap 9.8, BUN 19 H, Creatinine 1.04, Estimated Creat Clear 114, Estimated GFR 70, Est GFR ( Amer) 84, Glucose 115 H, Calcium 8.9 12/07/17 08:35: ESR 16 12/07/17 08:38: Vancomycin Trough 15.7 Medical History: Reports:: Asthma, Hyperlipidemia, Hypertension Assessment and Plan - Assessment and plan all Dx Assessment and Plan for all problems:: BASED ON PATIENT'S VANCOMYCIN TROUGH LEVEL OF 15.7 MCG/ML, RECOMMEND PATIENT CONTINUE WITH CURRENT DOSE AND INTERVAL OF VANCOMYCIN 1250 MG Q12H AT THIS TIME. PHARMACY WILL FOLLOW DAILY AND ADJUST APPROPRIATE. KILEY BUKRETT,PHARMD
--- NOTE | 2017-12-07 15:21 | PC.NURSE ---
12/07/17 1245 Cath-vanessa instilled to L upper arm PICC per protocol. Pt to return this evening for outpt vancomcyin infusion/ cath-vanessa to be removed at that time prior to vancomcycin infusion. Pt aware of this. rigger supervisor notified of this, as well as note left on pt order informing nurse to remove cath-vanessa 2.2ml prior to vanc infusion or flushing PICC.
== END ==
PROVIDERS: PCP Internal Medicine Adolescent Medicine; Visit Provider Internal Medicine Adolescent Medicine
DX: M86.9 Osteomyelitis, unspecified (principal); L97.524 Non-pressure chronic ulcer of other part of left foot with necrosis of bone; L03.032 Cellulitis of left toe
CPT/HCPCS: 80048; 80202; 85651; 96365; 96366; G0463; J3370

== ENCOUNTER → 2017-12-08 08:00 | Outpatient (CLI) | payer MEDICARE, SELFPAY ==
[2017-12-08] VITALS (7 sets, daily range): BP systolic 119–140; BP diastolic 70–100; PULSE 74–86; RESP 18–20; TEMP 36.4–36.9; O2SAT 96
== END ==
PROVIDERS: PCP Internal Medicine Adolescent Medicine; Visit Provider Internal Medicine Adolescent Medicine
DX: M86.9 Osteomyelitis, unspecified (principal); L97.524 Non-pressure chronic ulcer of other part of left foot with necrosis of bone; L03.032 Cellulitis of left toe
CPT/HCPCS: 96365; 96366; G0463; J3370

== ENCOUNTER 2017-12-09 08:00 | Outpatient (CLI) | payer MEDICARE, SELFPAY ==
[2017-12-09 08:30] VITALS: BP 122/83; PULSE 88; RESP 18; TEMP 36.7
[2017-12-09 09:30] VITALS: BP 146/73; PULSE 90; RESP 18
[2017-12-09 10:25] VITALS: BP 121/75; PULSE 91; RESP 18
== END 2017-12-09 10:40 | disposition home or self-care (01) ==
LOC: INF 08:15
PROVIDERS: PCP Internal Medicine Adolescent Medicine; Visit Provider Internal Medicine Adolescent Medicine
DX: M86.9 Osteomyelitis, unspecified (principal); L97.524 Non-pressure chronic ulcer of other part of left foot with necrosis of bone; L03.032 Cellulitis of left toe
CPT/HCPCS: 96365; 96366; J3370

== ENCOUNTER 2017-12-13 14:50 | Outpatient (CLI) | payer MEDICARE, SELFPAY | END 2017-12-13 15:30 | disposition home or self-care (01) | LOC: INF 14:57 | PROVIDERS: PCP Internal Medicine Adolescent Medicine; Visit Provider Internal Medicine Adolescent Medicine | DX: Z45.2 Encounter for adjustment and management of vascular access device (principal) | CPT/HCPCS: 96523 ==

== ENCOUNTER 2017-12-20 15:04 | Outpatient (CLI) | payer MEDICARE, SELFPAY | END 2017-12-20 15:23 | disposition home or self-care (01) | LOC: INF 15:04 | PROVIDERS: PCP Internal Medicine Adolescent Medicine; Visit Provider Internal Medicine Adolescent Medicine | DX: Z45.2 Encounter for adjustment and management of vascular access device (principal) | CPT/HCPCS: 96523 ==

== ENCOUNTER 2017-12-27 14:57 | Outpatient (CLI) | payer MEDICARE, SELFPAY | END 2017-12-27 15:10 | disposition home or self-care (01) | LOC: INF 14:57 | PROVIDERS: PCP Internal Medicine Adolescent Medicine; Visit Provider Internal Medicine Adolescent Medicine | DX: Z45.2 Encounter for adjustment and management of vascular access device | CPT/HCPCS: 96523 ==

== ENCOUNTER 2018-01-05 15:22 | Outpatient (CLI) | payer MEDICARE, SELFPAY | END 2018-01-05 15:32 | disposition home or self-care (01) | LOC: INF 15:23 | PROVIDERS: PCP Internal Medicine Adolescent Medicine; Visit Provider Internal Medicine Adolescent Medicine | DX: Z45.2 Encounter for adjustment and management of vascular access device (principal) | CPT/HCPCS: G0463 ==

== ENCOUNTER → 2019-02-20 15:15 | Outpatient (POV) | payer MEDICARE, SELFPAY | PROVIDERS: Visit Provider Dermatology | DX: Z00.00 Encounter for general adult medical examination without abnormal findings (principal) ==

== ENCOUNTER → 2021-03-16 15:21 | Outpatient (CLI) | payer MEDICARE, SELFPAY ==
--- NOTE | 2021-03-16 15:26 | XR_ITS ---
PROCEDURE: XR FOOT RT MIN 3V CLINICAL INDICATION: CELLULITIS OF RT FOOT, HX OF OSTEOMYELITIS, HX OF MRSA COMPARISON: CR [id number] XR foot LT min 3V from 11/04/2017 FINDINGS: No fracture or dislocation. No lytic or blastic change. There is normal mineralization. The proximal, middle and distal phalanx appear intact. There is no periosteal reaction and there is no lytic lesions seen. The remaining toes appear intact. There is a small plantar calcaneal enthesophyte. There is no significant soft tissue swelling and no foreign body seen. IMPRESSION: No acute findings. Dictated by: Dr. Pedro Vivar MD 03/17/2021 09:10 Dr. Pedro Vivar MD in [place] 03/17/2021 09:10
== END ==
PROVIDERS: PCP Internal Medicine Adolescent Medicine; Visit Provider Nurse Practitioner Family
DX: L03.115 Cellulitis of right lower limb (principal); E11.628 Type 2 diabetes mellitus with other skin complications; Z87.39 Personal history of other diseases of the musculoskeletal system and connective tissue; Z86.14 Personal history of Methicillin resistant Staphylococcus aureus infection
CPT/HCPCS: 73630

== ENCOUNTER 2022-06-24 20:30 | Inpatient (IN) | payer MEDICARE, SELFPAY ==
[2022-06-24] VITALS (15 sets, daily range): BP systolic 107–129; BP diastolic 54–76; PULSE 37–102; RESP 12–18; TEMP 36.6; O2SAT 92–99; BMI 28.7
--- NOTE | 2022-06-24 20:28 | ECG_ITS ---
APPROVED REPORT Exam: Resting ECG HR:41 bpm ECG Measurements Heart Rate 41 AXES QRSd 145 QRS 97 QT 446 T -76 QTc 381 Conclusion 3rd Degree AV block with complete AV Dissociation CRITICAL TEST RESULT UNCONFIRMED REPORT Electronically signed by : Jignesh Madsen MD 06/25/2022 20:55:20
--- NOTE | 2022-06-24 20:35 | PC.NURSE ---
Registration called staff to get this pt from the car d/t heart episode . Pt is A&Ox3 and was able to step out of the car himself, staff ushered pt to wheelchair and proceeded into ER room 4. 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 I let him know that he would need to leave it in the car. He is refusing , stating It is an offense against my rights and you can be fined $500 dollars . insurance agents supervisor called regarding this issues, he presented into room and let pt know against hospital policy to have any firearms in building. Pt did eventually concede to have SO take the firearm to the car.
--- NOTE | 2022-06-24 20:42 | XR_ITS ---
PROCEDURE INFORMATION: Exam: XR Chest Exam date and time: 06/24/2022 9:11 PM Age: 77 years old Clinical indication: Other: Near syncope; Additional info: Near syncope, jessika 30s TECHNIQUE: Imaging protocol: Radiologic exam of the chest. Views: 1 view. COMPARISON: CR [id number] XR chest portable PICC plac 11/07/2017 3:34 PM FINDINGS: Lungs: No consolidation. Pleural spaces: No pneumothorax. Heart/Mediastinum: Stable cardiac contours. Bones/joints: No acute abnormality. IMPRESSION: No acute findings.
[2022-06-24 20:55] LABS: Coronavirus 19, PCR Not Detected (NotDetected); Influenza A, PCR Not Detected (NotDetected); Influenza B, PCR Not Detected (NotDetected)
[2022-06-24 20:58] LABS: Basophils # 0.1 K/mm3 (0-0.2); Eosinophils # 0.1 K/mm3 (0.0-0.4); Eosinophils % 1.2 % (0.1-12.0); Hematocrit 47.1 % (42.0-52.0); Hemoglobin 15.3 g/dL (14.1-18.0); Lymphocytes # 2.7 K/mm3 (0.7-4.5); Lymphocytes % 32.4 % (10-50); Mean Corpuscular HGB Conc 32.5 g/dL (31.8-35.4); Mean Corpuscular Hemoglobin 29.9 pg (27.0-31.2); Mean Corpuscular Volume 91.9 fl (80-94); Mean Platelet Volume 7.6 fl (7.4-10.4); Monocytes # 0.5 K/mm3 (0.1-1.0); Monocytes % 5.4 % (1.7-9.3); Neutrophils # 5.1 K/mm3 (1.8-7.8); Platelet Count 329 K/mm3 (142-424); Red Blood Count 5.12 M/mm3 (4.60-6.20); White Blood Count 8.5 K/mm3 (4.8-10.8)
--- NOTE | 2022-06-24 21:01 | HMH.EDARPALP ---
Discharge Plan Disposition Patient Disposition: Admitted As Inpatient Chief Complaint: Arrhythmia/Palpitations Clinical Impressions Clinical Impression: Cardiac arrhythmia, Syncope Discharge ED Provider: Tigist (ED)Adrian Arrhythmia/Palpitations HPI General Chief Complaint: Arrhythmia/Palpitations Stated Complaint: syncope Time Seen by Provider: 06/24/22 21:02 Mode of Arrival: Family Vehicle Source of Information: Patient, Significant Other and Medical Record Limitations: No Limitations History of Present Illness HPI narrative: pt with acute episode of near syncope with dec hr - no def hx of cad - hx of thyroid disease Onset (ago): hour(s) Duration: intermittent Severity: moderate Associated symptoms: near-syncope and diaphoresis Related Data Home Medications Medication Instructions Recorded Confirmed alprazolam 0.5 mg tablet 0.5 mg PO BID Anxiety 30 days ##90 11/07/17 06/24/22 dutasteride 0.5 mg capsule 0.5 mg PO HS prostate 90 days 11/07/17 06/24/22 fenofibrate nanocrystallized 145 145 mg PO DAILY triglycerides 90 11/07/17 06/24/22 mg tablet days fluticasone propionate 50 1 spray intranasal NEEDED PRN 11/07/17 06/24/22 mcg/actuation nasal breathing 30 days spray,suspension vcsgng-glqizgqs-ydqnmsb 1 cap PO AC Supplement 30 days 11/07/17 06/24/22 24,000-76,000-120,000 unit capsule,delayed rel losartan 25 mg tablet 25 mg PO DAILY blood pressure 30 11/07/17 06/24/22 days montelukast 10 mg tablet 10 mg PO DAILY Breathing problems 11/07/17 06/24/22 30 days tamsulosin 0.4 mg capsule 0.4 mg PO HS prostate 90 days 11/07/17 06/24/22 fluticasone 500 mcg-salmeterol 50 1 inh inhalation BID Asthma 12/29/21 06/24/22 mcg/dose blistr powdr for inhalation (Wixela Inhub) metformin 500 mg tablet 500 mg PO DAILY Diabetes 12/29/21 06/24/22 ketotifen fumarate 0.025 % (0.035 1 drp Eye-Both BID eye 06/24/22 06/24/22 %) eye drops levothyroxine 175 mcg tablet 175 mcg PO DAILY hypothyroidism 06/24/22 06/24/22 neomycin 3.5 mg/g-polymyxin B 1 applic Eye-Both DAILYP PRN Eye 06/24/22 06/24/22 10,000 unit/g-dexameth 0.1 % eye Irritation oint Allergies Allergy/AdvReac Type Severity Reaction Status Date / Time tetanus and diphtheria Allergy Severe severe Verified 06/24/22 20:55 toxoids swelling & [TETANUS AND DIPHTHERIA blister TOXOIDS] [facility] Disclaimer: The information contained in this section may have been updated after the patient was seen, as this information can be updated by other users. Social History Smoking Status: Former smoker alcohol intake: never substance use type: denies use current occupational status: other Travel in the last 8 weeks: None ROS Obtained: Yes All systems reviewed & no additional complaints except as documented Physical Exam General General appearance: alert Head Head exam: normocephalic Eye Eye exam: Present PERRL and EOMI; Absent scleral icterus ENT ENT exam: Present mucous membranes moist Neck Neck exam: Present trachea midline Respiratory Respiratory exam: Present normal lung sounds bilaterally; Absent respiratory distress Cardiovascular Cardiovascular exam: Present bradycardia and systolic murmur Abdominal Exam Abdominal exam: Present soft Extremities Exam Extremities exam: Present full ROM Neurological Exam Neurological exam: Present alert, oriented X3 and CN II-XII intact; Absent motor sensory deficit Psychiatric Psychiatric exam: Present normal affect Skin Skin exam: Absent rash Medical Decision Making Medical Records Medical records reviewed: Yes I reviewed the patient's medical records. Bhavin Inquiry Pt receiving controlled substance: No Vital Signs: 06/24/22 20:31 Temperature 98 F Temperature Source Oral Pulse Rate [Right] 38 L Respiratory Rate 18 Blood Pressure [Right Arm] 110/59 L Blood Pressure Mean [Right Arm] 76 Blood Pressure Source [Right Arm] Automatic Cuff 02 Sat by Pulse Oximetry 9
[2022-06-24 21:08] LABS: Chloride 103 mmol/L (98-107); Potassium 3.9 mmoL/L (3.5-5.1); Sodium 138 mmol/L (136-145)
[2022-06-24 21:10] LABS: Alanine Aminotransferase 35 U/L (12-78); Aspartate Amino Transferase 43 U/L (17-59); Blood Urea Nitrogen 21 mg/dl (9-20); Creatinine Clearance Estimated 80 mL/min (50-200); Estimated Glomerular Filt Rate 65 ml/min (>60); GFR (African American) 78 ML/MIN (>60)
[2022-06-24 21:11] LABS: Albumin Level 4.6 g/dl (3.5-5.0); Albumin/Globulin Ratio 1.4 (1.1-1.8); Alkaline Phosphatase 65 U/L (38-126); Anion Gap 11.9 mEq/L (5-15); Bilirubin,Total 0.5 mg/dl (0.2-1.3); Calcium 9.4 mg/dl (8.4-10.2); Carbon Dioxide 27 mmol/L (22.0-30.0); Globulin 3.4 g/dL (1.3-3.2); Glucose 118 mg/dl (74-100); Magnesium 2.1 mg/dl (1.6-2.3)
[2022-06-24 21:26] LABS: Troponin I < 0.01 ng/ml (0.00-0.034)
[2022-06-24 21:28] LABS: T4 (Thyroxine) 10.5 ug/dl (5.53-11.0)
--- NOTE | 2022-06-24 21:30 | PC.NURSE ---
Patients heart monitor alarmed as asystole. Patient was noted to be alert and oriented during this, patient was then hooked up to the zole machine in case of need for being externally paced. Additionally, ekg machine was brought into the patient room to track ekg changes for cardiology. While monitoring the ekg machine, patient said I think I'm about to do it again (referring to the episode he experienced prior to coming into the ER). At that time, patients ekg changed. EKG printed and given to who then sent the ekg reports to . Patient was informed that the needed to possibly have a pacemaker per consulting . Patient had expressed his wishes to transfer to [facility], however, after speaking to , patient stated that he would rather just see .
--- NOTE | 2022-06-24 21:33 | PC.NURSE ---
ROBERT BROWN speaking with Dr. Bashir at this time
--- NOTE | 2022-06-24 21:37 | ECG_ITS ---
APPROVED REPORT Exam: Resting ECG HR:103 bpm ECG Measurements Heart Rate 103 AXES AL 263 P 245 QRSd 170 QRS 59 QT 434 T 56 QTc 493 Conclusion ECTOPIC ATRIAL TACHYCARDIA WITH FIRST DEGREE AV BLOCK LEFT ATRIAL ENLARGEMENT [-0.15mV P-WAVE IN V1/V2] LEFT BUNDLE BRANCH BLOCK [120+ ms QRS DURATION, 80+ ms Q/S IN V1/V2, 85+ ms R IN I/aVL/V5/V6] ABNORMAL ECG UNCONFIRMED REPORT Electronically signed by : Jignesh aMdsen MD 06/25/2022 20:54:40
[2022-06-24 21:42] LABS: Thyroid Stimulating Hormone 0.78 uIU/mL (0.465-4.68)
--- NOTE | 2022-06-24 21:53 | PC.NURSE ---
Dr. Escoto s/w Dr. Merida for admission. He also s/w Dr. Bashir to confirm pt would like to stay here & have pacemaker in am. They do agree to be admitted here. House notified for bed assignment.
[2022-06-24 23:37] LABS: Troponin I 0.02 ng/ml (0.00-0.034)
--- NOTE | 2022-06-24 23:52 | PC.NURSE ---
pt requesting to take his night time dose of xanax, no new order from ER MD. I let pt & SO know that we would need to ask the on-call MD, Dr. Merida. SO states pt has the bottle with him and will just go ahead and take it because he is starting to get real anxious . Pt advised to not take any medications without MD approval and dispensed by [facility] staff.
[2022-06-25] VITALS (25 sets, daily range): BP systolic 100–153; BP diastolic 68–93; PULSE 71–99; RESP 16–24; TEMP 36.5–36.9; O2SAT 94–98; BMI 30.6
--- NOTE | 2022-06-25 | IR_ITS ---
APPROVED REPORT Patient Location: Inpatient Diesel Engine Tester: MOY Elkins RT (R) PROCEDURES 1. Pocket formation for Cardiac Resynchronization Therapy- Pacemaker Placement. 2. Placement of an atrial sensing and pacing coil into the right atrial appendage. 3. Placement of left ventricular sensing pacing lead via the coronary sinus. 4. Placement of a ventricular sensing and pacing coil in the right ventricular apex. 5. Cardiac Resynchronization Therapy- Pacemaker Placement. INDICATION Third degree heart block, Asystole Informed consent was obtained prior to the procedure. COMPLICATIONS None Estimated Blood Loss: Less than 10 mls TECHNIQUE 1% Lidocaine with epinephrine used to anesthetized the left anterior aspect of the chest. Scalpel was used to make the initial cutaneous incision while electrocautery was used to dissect down tinto the fascia. The fascia was lifted off the pectoralis muscle and digitally manipulated creating a pocket for the pacemaker. The patient was then placed in Trendelenburg position and the subclavian vein was accessed three times via the Selinger technique, there are three wires in the vein. A 9.5 Iranian sheath and dilator was then placed over one of the wires while keeping the other two wires in place within the subclavian vein. The dilator was removed from the sheath. Using fluoroscopic guidance, contrast was used to visualize the coronary sinus, the left ventricular lead was placed into the coronary sinus. Electronic interrogation proved acceptable thresholds and voltage within the lead. Using 3-0 silk, the left ventricular lead was then secured into place and sheath peeled away. A 6 Iranian sheath was placed under fluoroscopic guidance into the subclavian vein over one of the wires while keeping the other wire in place within the subclavian vein. The dilator was removed from the sheath. Using fluoroscopic guidance, the ventricular lead was placed into the right ventricular apex, screwed and secured into place. Electronic interrogation proved acceptable thresholds and voltage within the lead. Using 3-0 silk, the ventricular lead was then secured into place. Lead was secured to the facia using the 3-0 silk. Following this, the sheath was pealed away. An additional 6 Iranian fresh sheath and dilator was placed over the existing wire. Using fluoroscopic guidance, the atrial lead was the placed into the right atrial appendage and screwed and secured in place. Electrical interrogation demonstrated acceptable thresholds and voltage number. The atrial lead was then secured into place using 3-0 silk. 1 gram of Ancef was used to flush the pocket. Following the pacemaker generator being secured to the fascia and in place, Monocryl was used to close the subcutaneous layers while tee were used to close the cutaneous layer. A pressure dressing was placed and the patient was transferred to the postop holding area in stable condition for postoperative care. INTERROGATION Generator Model number: VISIONIST X4 PRODUCT TRAINER-P, U228 Generator Serial number: [id number] Atrial lead model number: INGEVITY+ 52CM, 7841 Atrial lead serial number: [id number] P-wave: 5.0mV Impedence: 860 ohms Threshold: 1.2V@0.4ms Current: 1.4mA Right Ventricular lead model number: INGEVITY+ 59CM, 7842 Right Ventricular lead serial number: [id number] R-wave: 10mV Impedence: 720 ohms Threshold: 1.0V@0.4ms Current: 1.4mA Left Ventricular lead model number: ACUITY X4 STRAIGHT, 4671 Left Ventricular lead serial number: [id number] R-wave: 11mV Impedence: 1061 ohms Pacing Parameters: Mode: DDDR Base/Max Track:60 ppm / 130 ppm No diaphragmatic stimulation at 10 volts. IM
--- NOTE | 2022-06-25 00:25 | PC.NURSE ---
This RN noted pt's HR was 0 and rhythm was asystole per monitor, immediately went into room to assess pt. He was experiencing another episode with LOC, mild tremors, and aspnea. This episode lasted longer than previous of about 10 seconds. Pt began to awake on own and rhythm changed to am AV block rhythm with pulse on 40s. Changes noted to monitor and then pt awake and confused for a few seconds then recalled he was in the hospital and the earlier events. HR 50s on monitor. staff at bedside during event. [facility] supervisor and [facility] nurse ayden haines rn
--- NOTE | 2022-06-25 01:10 | PC.NURSE ---
gave report to Butch Villasenor RN. supervisor pumping station and I then transported pt & SO to room 219.
--- NOTE | 2022-06-25 01:47 | PC.NURSE ---
Pt arrived to floor via stretcher @ 5178.
[2022-06-25 02:42] LABS: Troponin I 0.02 ng/ml (0.00-0.034)
--- NOTE | 2022-06-25 03:05 | PC.NURSE ---
Addendum entered by Butch Villasenor RN 06/25/22 07:21: Skin tear is on LFA. Original Note: He is A&Ox4. He lung sounds are CTA. Normal bowel sounds. No syncopal episodes since arriving to the floor. VSS. BBB on telemetry. He has a skin tear on his RFA with a band-aid covering it. Educated him on the need to have a picture on the chart. He refuses to allow staff to remove the band-aid. He states he takes care of it. His significant other states she is his POA and whom is a retired nurse states he does not allow her to take care of it either because he cares for it himself. She states he recently changed the band-aid. He denies pain and continues on RA.
[2022-06-25 06:00] LABS: Basophils % 0.3 % (0.1-2.0); Eosinophils # 0.1 K/mm3 (0.0-0.4); Eosinophils % 1.1 % (0.1-12.0); Hematocrit 42.2 % (42.0-52.0); Hemoglobin 13.8 g/dL (14.1-18.0); Lymphocytes # 1.6 K/mm3 (0.7-4.5); Lymphocytes % 21.5 % (10-50); Mean Corpuscular HGB Conc 32.7 g/dL (31.8-35.4); Mean Corpuscular Hemoglobin 30.3 pg (27.0-31.2); Mean Corpuscular Volume 92.8 fl (80-94); Mean Platelet Volume 7.7 fl (7.4-10.4); Monocytes # 0.4 K/mm3 (0.1-1.0); Monocytes % 6.1 % (1.7-9.3); Neutrophils # 5.1 K/mm3 (1.8-7.8); Neutrophils % 71.1 % (37.0-80.0); Platelet Count 245 K/mm3 (142-424); Red Blood Count 4.55 M/mm3 (4.60-6.20); White Blood Count 7.2 K/mm3 (4.8-10.8)
[2022-06-25 06:33] LABS: Chloride 109 mmol/L (98-107); Sodium 140 mmol/L (136-145)
[2022-06-25 06:34] LABS: Potassium 4.2 mmoL/L (3.5-5.1)
[2022-06-25 06:35] LABS: Cholesterol 142 mg/dl (140-200); Triglycerides 98 mg/dl (30-150); VLDL Cholesterol 20 mg/dL (0-40)
[2022-06-25 06:36] LABS: Chol/HDL Ratio 3.6 (1-3.5); HDL Cholesterol 39 mg/dl (40-60); Magnesium 2.2 mg/dl (1.6-2.3)
[2022-06-25 06:37] LABS: Anion Gap 10.2 mEq/L (5-15); Blood Urea Nitrogen 20 mg/dl (9-20); Calcium 9.1 mg/dl (8.4-10.2); Carbon Dioxide 25 mmol/L (22.0-30.0); Creatinine Clearance Estimated 95 mL/min (50-200); Estimated Glomerular Filt Rate 81 ml/min (>60); GFR (African American) 98 ML/MIN (>60); Glucose 118 mg/dl (74-100)
[2022-06-25 06:47] LABS: Direct LDL Cholesterol 86.03 mg/dL (100-129)
--- NOTE | 2022-06-25 07:00 | CA_ITS ---
APPROVED REPORT EXAM: Comprehensive 2D, Doppler, and color-flow Echocardiogram Film Crew Member: Tracee Quevedo CRT Ht: 6 ft 3 in Wt: 230lbs BSA: 2.33 BP: 110/59 mmHg Indications: Arrhythmia, COPD, Diabetes, Hyperlipidemia, Hypertension/HDD, ablation 5 years, ex smoker 2D Dimensions Aortic Root 1.79 cm LA Volume 39.20 mL LVOT 1.72 cm (M/F) 1.5-2.5 LA Volume Index 16.40 mL/m2 (M/F) 16-34 M-Mode Dimensions RVDd 2.05 cm (0.9-2.6) LA Diam 4.36 cm (1.9-4.0) LVDd 5.01 cm (3.5-5.7) Ao Diam 3.98 cm (2.0-3.7) LVDs 3.04 cm (3.5-5.7) IVSd 0.84 cm (0.6-1.1) PWd 1.06 cm (0.6-1.1) EF (Teich) 69.50% FS 39.30% EDV (Teich) 118.80 mL TAPSE 2.04 (<1.7) ESV (Teich) 36.20 mL Aortic Valve LVOT Max 151.00 (70-110 cm/s) LVOT VTI 32.27 cm AoV Peak Dilshad. 208.00 (50-130 cm/s) AI PHT 413.00 ms AO Peak GR. 17.30 mmHg AO Mean GR. 11.30 (<5 mmHg) AO VTI 41.31 (18-25 cm) SUNIL (VTI) 1.82 (2.5-4.5 cm2) Pulmonary Valve PV Peak Velocity 163.00 (50-150 cm/s) Tricuspid Valve TR P. Velocity 283.00 cm/s RAP Estimate 10.00 mmHg RVSP 42.10 mmHg Left Ventricle Left atrium is mildly enlarged, left ventricle is normal size, estimated ejection fraction 45%, there is abnormal septal motion, Doppler evidence of impaired LV relaxation seen. Right Ventricle Right atrium and right ventricle are mildly enlarged with normal contractility. Aortic Valve Aortic valve is thickened and calcified without significant aortic stenosis, there is trace aortic insufficiency. Mitral Valve Mitral valve has mitral annular calcification, there is mild mitral regurgitation. Tricuspid Valve Tricuspid grossly normal, there is mild tricuspid regurgitation, tricuspid regurgitation jet velocity is inadequate for calculation of the right ventricular systolic pressure. Pulmonic Valve Pulmonic valve is poorly visualized. Great Vessels Aortic root is normal size. Inferior vena cava is poorly visualized. Pericardium No significant pericardial effusion noted. Conclusion 1. Mild biatrial enlargement, normal left ventricular size, estimated ejection fraction 45%, there is abnormal septal motion, Doppler evidence of impaired LV relaxation seen. 2. Mildly enlarged right ventricle normal contractility. 3. Thickened and calcified aortic valve without significant aortic stenosis, there is trace aortic insufficiency. 4. Mild mitral and tricuspid regurgitation. 5. No significant pericardial effusion. 6. Inferior vena cava is poorly visualized. Electronically signed by : Julio Puga MD 06/25/2022 10:05:40
--- NOTE | 2022-06-25 07:27 | HMH.PHAINT1 ---
Pharmacy Intervention Comments: MEDICATION RECONCILIATION COMPLETED ON PATIENT USING EXTERNAL FILL HISTORY FROM PHARMACY AND JAS REPORT. -BRYAN MANRIQUEZ, JONATHAND
--- NOTE | 2022-06-25 07:54 | EXP.CARD.CON ---
History of Present Illness History of Present Illness Consult date: 06/25/22 Requesting physician: Jignesh Madsen Chief complaint: Syncope, third degree heart block Additional Medical History:: 1. History of LVOT PVC ablation by Dr. Cruz in 2011 2. Hypertension 3. Hyperlipidemia 4. History of anxiety/panic attacks treated with chronic Xanax twice daily 5. History of empty sella syndrome 6. Hypothyroidism, on replacement therapy History of present illness: 77-year-old white male presented to the emergency department by private vehicle after episodes of decreased consciousness and near syncope yesterday evening. ER evaluation showed evidence of intermittent third-degree heart block. Patient did have recurrent episodes during the night of symptoms of decreased consciousness but brief in duration. He has been hooked up to external pacemaker overnight but is currently not requiring external pacing. Heart rate is in the 70-80 bpm range. Remote history of ablation therapy for left ventricular outflow tract PVCs in [address] Rick Cruz in [place], [place] No prior history of coronary artery disease. He has been treated for diabetes, HTN and HLD for many years. Non-smoker but chews tobacco. Patient was admitted for plans to implant pacemaker today. Preliminary echocardiogram shows ejection fraction greater than 40%. We will plan to implant BiV pacemaker [facility] Disclaimer: The information contained in this section may have been updated after the patient was seen, as this information can be updated by other users. Social History (Updated 06/25/22 @ 02:30 by Butch Villasenor RN) Smoking Status: Former smoker alcohol intake: never substance use type: denies use current occupational status: other Travel in the last 8 weeks: None Review of Systems Review of Systems Review of systems:: pertinent systems reviewed and negative unless documented below *Cardiovascular Cardiovascular: Denies chest pain and Reports dyspnea on exertion *Respiratory Respiratory: Reports dyspnea on exertion *Gastrointestinal Gastrointestinal: Denies abdominal pain and Denies vomiting Exam Data for Last 24 hours Vital signs and Labs for Last 24 Hours: Temp Pulse Resp BP Pulse Ox 98 F 78 17 138/77 95 06/24/22 23:51 06/25/22 06:00 06/25/22 06:00 06/25/22 06:00 06/25/22 06:00 Laboratory Results - last 24 hr 06/24/22 20:35: SARS-CoV-2 (PCR) Not detected, Influenza A Untype (PCR) Not detected, Influenza Type B (PCR) Not detected 06/24/22 20:35: WBC 8.5, RBC 5.12, Hgb 15.3, Hct 47.1, MCV 91.9, MCH 29.9, MCHC 32.5, RDW 13.0, Plt Count 329, MPV 7.6, Neut % (Auto) 60.0, Lymph % (Auto) 32.4, [place] % (Auto) 5.4, Eos % (Auto) 1.2, Baso % (Auto) 1.0, Neut # (Auto) 5.1, Lymph # (Auto) 2.7, [place] # (Auto) 0.5, Eos # (Auto) 0.1, Baso # (Auto) 0.1 06/24/22 20:35: Sodium 138, Potassium 3.9, Chloride 103, Carbon Dioxide 27, Anion Gap 11.9, BUN 21 H, Creatinine 1.10, Estimated Creat Clear 80, Estimated GFR 65, Est GFR ( Amer) 78, Glucose 118 H, Calcium 9.4, Total Bilirubin 0.5, AST 43, ALT 35, Alkaline Phosphatase 65, Troponin I < 0.01, Total Protein 8.0, Albumin 4.6, Globulin 3.4 H, Albumin/Globulin Ratio 1.4, TSH 0.78, Thyroxine (T4) 10.5 06/24/22 20:35: Magnesium 2.1 06/24/22 23:10: Troponin I 0.02 06/25/22 02:15: Troponin I 0.02 06/25/22 05:34: WBC 7.2, RBC 4.55 L, Hgb 13.8 L, Hct 42.2, MCV 92.8, MCH 30.3, MCHC 32.7, RDW 13.0, Plt Count 245 D, MPV 7.7, Neut % (Auto) 71.1, Lymph % (Auto) 21.5, [place] % (Auto) 6.1, Eos % (Auto) 1.1, Baso % (Auto) 0.3, Neut # (Auto) 5.1, Lymph # (Auto) 1.6, [place] # (Auto) 0.4, Eos # (Auto) 0.1, Baso # (Auto) 0.0 06/25/22 05:34: Sodium 140, Potassium 4.2, Chloride 109 H, Carbon Dioxide 25, Anion Gap 10.2, BUN 20, Creatinine 0.90, Estimated Creat Clear 95, Estimated GFR 81, Est GFR ( Amer) 98 D, Glucose 118 H, Calcium 9.1 06/25/22 05:34: Magnesium 2.2, Triglycerides 98, Cholesterol 142, LDL Cholesterol Di
--- NOTE | 2022-06-25 08:01 | PC.NURSE ---
Patient off floor to cardiac catheterization technician at this time with cardiac catheterization technician staff.
--- NOTE | 2022-06-25 11:38 | XR_ITS ---
FINAL REPORT CLINICAL HISTORY: post pacemaker PLACEMENT COMPARISON: One day prior FINDINGS: A single portable view of the chest was obtained. Left subclavian pacemaker is noted. No evidence of pneumothorax. The heart size and pulmonary vascularity are within normal limits. The mediastinum is within normal limits. No acute pulmonary abnormality is identified. The bony thorax is intact. IMPRESSION: No pneumothorax post pacemaker placement. Reviewed, Interpreted and Dictated by Anil Worrell III, MD Transcribed by Deanne Austin Authenticated and [facility]
--- NOTE | 2022-06-25 11:50 | P.PN_ITS ---
[facility] Disclaimer: The information contained in this section may have been updated after the patient was seen, as this information can be updated by other users. Social History (Updated 06/25/22 @ 02:30 by Butch Villasenor RN) Smoking Status: Former smoker alcohol intake: never substance use type: denies use current occupational status: other Travel in the last 8 weeks: None [facility] Anesthesia Checklist Patient Identification Patient Identification: Arm Band and Verbal (Name & ) Structural Data Admitted From: Inpatient Planned Operative Procedure/s: Bi-Ventricular Pacemaker Placement Consent for Planned Operative Procedure(s) Verified: Yes Verified Documents: Surgical Consent Airway Assessment C-Spine Mobility Assessed: Yes TMJ Mobility Assessed: Yes Anesthesia Plan ASA Class: III Anesthesia Type: MAC
--- NOTE | 2022-06-25 13:01 | PC.NURSE ---
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
--- NOTE | 2022-06-25 15:11 | PC.NURSE ---
No acute changes noted this shift, patient is s/p permanent pacemaker placement this shift, tolerated well, pacemaker site cdi with bleeding or hematoma noted, small area of bruising noted unchanged from arrival. Paced per telemetry, denies any cp or soa, remains on RA. Call light in reach with bed in lowest position, at bedside.
--- NOTE | 2022-06-25 16:58 | EXP.HP ---
History of Present Illness *Admission Date: 06/25/22 *Reason for visit:: Syncope/fatigue *History of present illness: [facility] [address] [place] [address] Cardiology Consult Note ISigned Patient: Clay Wayne MR#: [id number] : 1945 Acct:[id number] Age/Sex: 77 / M ADM Date: 06/24/22 Loc: [address] [place] [address] Date of Service:06/24/[address]: Jignesh Madsen MD cc: Jignesh Madsen MD; Jonnathan Cevallos; Titus Bashir MD~ ADDENDUMSuccessful implantation of [employer] BiV Pacemaker. Pt was on losartan at home but with EF of 45%, would recommend switching to entresto 24/26 mg BID. Consider coreg therapy if BP allows. If no complications overnight, then anticipate discharge home in AM. Addendum Documented By: Jonnathan Cevallos ? 06/25/22 1532 Addendum Signed By: <Electronically signed by Jonnathan Cevallos> ? 06/25/22 1532 ? History of Present Illness History of Present Illness Consult date: 06/25/22 Requesting physician: Jignesh Madsen Chief complaint: Syncope, third degree heart block Additional Medical History:: 1.? History of LVOT PVC ablation by Dr. Cruz in 2011 2.? Hypertension 3.? Hyperlipidemia 4.? History of anxiety/panic attacks treated with chronic Xanax twice daily 5.? History of empty sella syndrome 6.? Hypothyroidism, on replacement therapy History of present illness: 77-year-old white male presented to the emergency department by private vehicle after episodes of decreased consciousness and near syncope yesterday evening.? ER evaluation showed evidence of intermittent third-degree heart block.? Patient did have recurrent episodes during the night of symptoms of decreased consciousness but brief in duration.? He has been hooked up to external pacemaker overnight but is currently not requiring external pacing.? Heart rate is in the 70-80 bpm range. Remote history of ablation therapy for left ventricular outflow tract PVCs in [address] Rick Cruz in [place], [place] No prior history of coronary artery disease.? He has been treated for diabetes, HTN and HLD for many years. Non-smoker but chews tobacco. Patient was admitted for plans to implant pacemaker today.? Preliminary echocardiogram shows ejection fraction greater than 40%.? We will plan to implant BiV pacemaker [facility] Disclaimer: The information contained in this section may have been updated after the patient was seen, as this information can be updated by other users. Social History (Updated 06/25/22 @ 02:30 by Butch Villasenor RN) Smoking Status: Former smoker alcohol intake: never substance use type: denies use current occupational status: other Travel in the last 8 weeks: None Review of Systems Review of Systems Review of systems:: pertinent systems reviewed and negative unless documented below Meds Home Medications and Allergies Home Medications Medication Instructions Recorded Confirmed Type dutasteride 0.5 mg capsule 0.5 mg PO HS prostate 90 days 11/07/17 06/24/22 History fenofibrate nanocrystallized 145 145 mg PO DAILY triglycerides 90 11/07/17 06/24/22 History mg tablet days fluticasone propionate 50 1 spray intranasal BIDP PRN 11/07/17 06/25/22 History mcg/actuation nasal allergies 30 days spray,suspension xsdncz-eckzetpt-hbrdeku 1 cap PO AC Supplement 30 days 11/07/17 06/25/22 History 24,000-76,000-120,000 unit capsule,delayed rel losartan 25 mg tablet 25 mg PO DAILY Hypertension 30 days 11/07/17 06/25/22 History montelukast 10 mg tablet 10 mg PO PM Breathing problems 30 11/07/17 06/25/22 History days tamsulo
[2022-06-26] VITALS: BP 129/69; PULSE 80; RESP 18; TEMP 36.9; O2SAT 97
[2022-06-26 04:00] VITALS: PULSE 90; TEMP 37.4; BMI 30.3
--- NOTE | 2022-06-26 04:30 | PC.NURSE ---
No acute changes noted this shift.
[2022-06-26 07:24] LABS: Chloride 107 mmol/L (98-107); Potassium 3.7 mmoL/L (3.5-5.1); Sodium 137 mmol/L (136-145)
[2022-06-26 07:25] LABS: Basophils % 0.4 % (0.1-2.0); Eosinophils # 0.1 K/mm3 (0.0-0.4); Eosinophils % 1.3 % (0.1-12.0); Hematocrit 41.4 % (42.0-52.0); Hemoglobin 13.6 g/dL (14.1-18.0); Lymphocytes # 1.9 K/mm3 (0.7-4.5); Lymphocytes % 19.9 % (10-50); Mean Corpuscular HGB Conc 32.8 g/dL (31.8-35.4); Mean Corpuscular Hemoglobin 30.7 pg (27.0-31.2); Mean Corpuscular Volume 93.6 fl (80-94); Mean Platelet Volume 7.8 fl (7.4-10.4); Monocytes # 0.5 K/mm3 (0.1-1.0); Monocytes % 5.6 % (1.7-9.3); Neutrophils # 6.9 K/mm3 (1.8-7.8); Neutrophils % 72.9 % (37.0-80.0); Platelet Count 234 K/mm3 (142-424); Red Blood Count 4.42 M/mm3 (4.60-6.20); Red Cell Distribution Width 13.1 % (11.5-17.5); White Blood Count 9.5 K/mm3 (4.8-10.8)
[2022-06-26 07:27] LABS: Blood Urea Nitrogen 11 mg/dl (9-20); Creatinine Clearance Estimated 94 mL/min (50-200); Estimated Glomerular Filt Rate 93 ml/min (>60); GFR (African American) 113 ML/MIN (>60)
[2022-06-26 07:28] LABS: Anion Gap 7.7 mEq/L (5-15); Calcium 8.5 mg/dl (8.4-10.2); Carbon Dioxide 26 mmol/L (22.0-30.0); Glucose 100 mg/dl (74-100)
[2022-06-26 08:00] VITALS: BP 114/75; PULSE 102; PULSE 96; RESP 22; TEMP 36.6; O2SAT 97
--- NOTE | 2022-06-26 09:14 | EXP.DC.SUM ---
General Admission date:: 06/24/22 Discharge date: 06/26/22 HPI HPI HPI: ?History of Present Illness History of Present Illness Consult date: 06/25/22 Requesting physician: Jignesh Madsen Chief complaint: Syncope, third degree heart block Additional Medical History:: 1.? History of LVOT PVC ablation by Dr. Cruz in 2011 2.? Hypertension 3.? Hyperlipidemia 4.? History of anxiety/panic attacks treated with chronic Xanax twice daily 5.? History of empty sella syndrome 6.? Hypothyroidism, on replacement therapy History of present illness: 77-year-old white male presented to the emergency department by private vehicle after episodes of decreased consciousness and near syncope yesterday evening.? ER evaluation showed evidence of intermittent third-degree heart block.? Patient did have recurrent episodes during the night of symptoms of decreased consciousness but brief in duration.? He has been hooked up to external pacemaker overnight but is currently not requiring external pacing.? Heart rate is in the 70-80 bpm range. Remote history of ablation therapy for left ventricular outflow tract PVCs in [address] Rick Cruz in [place], [place] No prior history of coronary artery disease.? He has been treated for diabetes, HTN and HLD for many years. Non-smoker but chews tobacco. Patient was admitted for plans to implant pacemaker today.? Preliminary echocardiogram shows ejection fraction greater than 40%.? We will plan to implant BiV pacemaker Hospital Course Hospital Course Hospital Course: Patient was admitted as noted above. Please see HPI per cardiology service. Pacemaker implantation went well. Patient felt well afterwards. Patient's echocardiogram showed reduced EF in the 45% range. As result he will be discharged on Entresto low-dose twice daily instead of his plain angiotensin receptor jess. This was not taken by the patient the day before admission so he is be able to start this today. Otherwise medications remain the same. We will follow him in our office on and cardiology in 1 week Exam Data for Last 24 hours Vital signs and Labs for Last 24 Hours: Temp Pulse Resp BP Pulse Ox 97.9 F 102 H 22 114/75 97 06/26/22 08:00 06/26/22 08:00 06/26/22 08:00 06/26/22 08:00 06/26/22 08:00 Laboratory Results - last 24 hr 06/26/22 06:52: WBC 9.5 D, RBC 4.42 L, Hgb 13.6 L, Hct 41.4 L, MCV 93.6, MCH 30.7, MCHC 32.8, RDW 13.1, Plt Count 234, MPV 7.8, Neut % (Auto) 72.9, Lymph % (Auto) 19.9, [place] % (Auto) 5.6, Eos % (Auto) 1.3, Baso % (Auto) 0.4, Neut # (Auto) 6.9, Lymph # (Auto) 1.9, [place] # (Auto) 0.5, Eos # (Auto) 0.1, Baso # (Auto) 0.0 06/26/22 06:52: Sodium 137, Potassium 3.7, Chloride 107, Carbon Dioxide 26, Anion Gap 7.7, BUN 11 D, Creatinine 0.80, Estimated Creat Clear 94, Estimated GFR 93, Est GFR ( Amer) 113, Glucose 100, Calcium 8.5 I & O for Last 24 hours: Intake & Output 06/23/22 06/24/22 06/25/22 06/26/22 11:59 11:59 11:59 11:59 Intake Total 1184 / 1184 2106 / 2106 Output Total 670 / 670 2250 / 2250 Balance 514 / 514 -144 / -144 Weight 246 lb 4.8 oz 244 lb 0.827 oz Constitutional Constitutional: no acute distress *Routine Neck Exam Neck: Absent supple, full ROM, JVD or carotid bruit Routine Chest/Breast/Axilla Exam Comments: Pacemaker implantation site in left upper chest wall looks good. No swelling or redness or hematoma. *Routine Respiratory Exam Respiratory: Present CTA bilaterally; Absent wheezes or crackles *Routine Cardiovascular Exam Cardiovascular: Present RRR; Absent murmur, gallop or rubs *Routine Extremities Exam Extremities: Absent cyanosis, clubbing or edema *Routine Neurological Exam Neurological: Present alert, oriented X3 and CN II-XII intact Results Data Completed and Pending Labs on day of discharge: Labs from last 24 hours 06/26/22 06/26/22 06:52 06:52 WBC 9.5 D RBC 4.42 L Hgb 13.6
--- NOTE | 2022-06-26 13:40 | HMH.PHAINT1 ---
Pharmacy Intervention Comments: LATE ENTRY, DISCHARGE MEDICATION COUNSELING PROVIDED THIS MORNING. DISCUSSED STOPPING THE LOSARTAN AND STARTING ENTRESTO. WATCH FOR DIZZINESS,LIGHTHEADEDNESS, LOW BP. PATIENT AND VERBALIZED NO QUESTIONS DURING THE COUNSELING.
--- NOTE | 2022-06-28 13:41 | CARE MANAGER ---
Left message for patient regarding post-discharge phone interview.
--- NOTE | 2022-06-28 14:03 | CARE MANAGER ---
Spoke with patient's SO. She states he is doing well and denies any questions or concerns. JES Munguia
== END 2022-06-26 11:09 | disposition home or self-care (01) | DRG 243 ==
LOC: ER 20:51 → 2ND 22:53
PROVIDERS: Internal Medicine; Admitting Provider Family Medicine; Emergency Provider Emergency Medicine; PCP Internal Medicine Adolescent Medicine; Visit Provider Internal Medicine Adolescent Medicine
PROC: 0JH Subcutaneous Tissue and Fascia, Insertion (ICD-10-PCS; principal; 2022-06-25 08:10)
DX: I44.2 Atrioventricular block, complete (principal); I50.20 Unspecified systolic (congestive) heart failure; E78.5 Hyperlipidemia, unspecified; E03.9 Hypothyroidism, unspecified; F41.9 Anxiety disorder, unspecified; F41.0 Panic disorder [episodic paroxysmal anxiety]; F17.220 Nicotine dependence, chewing tobacco, uncomplicated; I11.0 Hypertensive heart disease with heart failure; E11.9 Type 2 diabetes mellitus without complications; Z79.84 Long term (current) use of oral hypoglycemic drugs
CPT/HCPCS: 33208; 33225; 36415; 71045; 80048; 80053; 80061; 83735; 84436; 84443; 84484; 85025; 93005; 93306; 99152; 99153; 99285; C1769; C1898; C1900; C2621; C9803; J2704; Q9967; U0003; U0005

== ENCOUNTER → 2022-09-22 12:48 | Outpatient (CLI) | payer MEDICARE, SELFPAY | PROVIDERS: PCP Internal Medicine Adolescent Medicine; Visit Provider Nurse Practitioner Family | DX: E78.5 Hyperlipidemia, unspecified (principal); I10 Essential (primary) hypertension; I44.2 Atrioventricular block, complete; I50.20 Unspecified systolic (congestive) heart failure; Z95.0 Presence of cardiac pacemaker | CPT/HCPCS: 93306 ==

== ENCOUNTER → 2022-11-04 15:13 | Outpatient (CLI) | payer MEDICARE, SELFPAY ==
--- NOTE | 2022-11-04 15:17 | XR_ITS ---
FINAL REPORT CLINICAL HISTORY: TYPE II DM,CALLUS OF LT FOOT COMPARISON: 03/16/2021 FINDINGS: Left foot Three views were obtained. There is no acute fracture or dislocation. There are mild degenerative changes. There is no evidence of bony erosion. No soft tissue abnormality is identified. IMPRESSION: Mild degenerative changes. Reviewed, Interpreted and Dictated by Anil Worrell III, MD Transcribed by Noemi Leach Authenticated and [facility]
== END ==
PROVIDERS: PCP Nurse Practitioner Family; Visit Provider Nurse Practitioner Family
DX: E11.9 Type 2 diabetes mellitus without complications (principal); G57.92 Unspecified mononeuropathy of left lower limb; L84 Corns and callosities; Z79.84 Long term (current) use of oral hypoglycemic drugs
CPT/HCPCS: 73630

== ENCOUNTER → 2022-12-22 15:20 | Outpatient (CLI) | payer MEDICARE, SELFPAY | PROVIDERS: Visit Provider Podiatrist | DX: L97.522 Non-pressure chronic ulcer of other part of left foot with fat layer exposed (principal); L97.529 Non-pressure chronic ulcer of other part of left foot with unspecified severity; Z51.89 Encounter for other specified aftercare | CPT/HCPCS: 87070; 87077; 87186; 87205 ==

== ENCOUNTER → 2022-12-22 15:40 | Outpatient (CLI) | payer MEDICARE, SELFPAY ==
--- NOTE | 2022-12-22 15:46 | XR_ITS ---
FINAL REPORT CLINICAL HISTORY: ulcer of left great toe COMPARISON: None FINDINGS: LEFT FOOT: Three views of the left foot were obtained. There is no acute fracture or dislocation. There is erosion of the tuft of the first distal phalanx, appearance worrisome for osteomyelitis. Mild degenerative change. Pes planus deformity noted. There is a small plantar calcaneal spur. There is no soft tissue abnormality. IMPRESSION: Erosion tuft first distal phalanx with appearance worrisome for osteomyelitis. Reviewed, Interpreted and Dictated by Anil Worrell III, MD Transcribed by Deanne Austin Authenticated and . [facility]
== END ==
PROVIDERS: PCP Internal Medicine Adolescent Medicine; Visit Provider Podiatrist
DX: L97.522 Non-pressure chronic ulcer of other part of left foot with fat layer exposed (principal); L97.529 Non-pressure chronic ulcer of other part of left foot with unspecified severity; B96.1 Klebsiella pneumoniae [K. pneumoniae] as the cause of diseases classified elsewhere; B96.5 Pseudomonas (aeruginosa) (mallei) (pseudomallei) as the cause of diseases classified elsewhere
CPT/HCPCS: 73630; 87070; 87077; 87186; 87205

== ENCOUNTER → 2023-01-26 16:37 | Outpatient (CLI) | payer MEDICARE, SELFPAY ==
--- NOTE | 2023-01-26 16:43 | XR_ITS ---
PROCEDURE INFORMATION: Exam: XR Left Foot Complete; Alignment Exam date and time: 01/26/2023 4:45 PM Age: 78 years old Clinical indication: Condition or disease; Other: Left toe wound; Additional info: Left hallux wound TECHNIQUE: Imaging protocol: Radiologic exam of the left foot. Views: 3 or more views. COMPARISON: CR XR FOOT WT BEARING LT 3V 12/22/2022 3:58 PM FINDINGS: Bones/joints: There is a pes planus deformity. No acute fracture or dislocation is identified. Previously questioned erosion at the 1st distal phalanx tuft is less pronounced on today's study. Soft tissues: There is mild soft tissue swelling over the 1st metatarsophalangeal joint. IMPRESSION: 1. No acute osseous injury. 2. Previously questioned erosion at the 1st distal phalanx tuft is less pronounced on today's study.
== END ==
PROVIDERS: PCP Internal Medicine Adolescent Medicine; Visit Provider Podiatrist
DX: Z51.89 Encounter for other specified aftercare (principal); L97.522 Non-pressure chronic ulcer of other part of left foot with fat layer exposed; L97.529 Non-pressure chronic ulcer of other part of left foot with unspecified severity; B95.7 Other staphylococcus as the cause of diseases classified elsewhere
CPT/HCPCS: 73630; 87070; 87077; 87186; 87205

== ENCOUNTER → 2023-01-26 23:13 | Outpatient (CLI) | payer MEDICARE, SELFPAY | PROVIDERS: PCP Internal Medicine Adolescent Medicine; Visit Provider Podiatrist | DX: M79.671 Pain in right foot (principal) ==

== ENCOUNTER 2023-02-01 13:38 | Outpatient (RCR) | payer MEDICARE, SELFPAY ==
--- NOTE | 2023-02-01 15:39 | HMH.PTOPEV ---
PT Outpatient Evaluation Rehab PT Outpatient Evaluation Start: 02/01/23 13:58 Freq: Status: Active Protocol: Document 02/01/23 14:53 PHORNE (Rec: 02/01/23 15:38 PHORNE [id number]) E-signed By Frantz Yadav, PT Outpatient Therapy Subjective History Subjective History This is the initial PT eval for Clay Wayne, 78 yowm who presents with c/o an episode of vertigo last ~ 2-3 days consistently that occured 3 wks ago. He reports very sudden onset of symptoms upon standing and no reduction in vertigo for 2 days cosnatntly, with moderate decrease in vertigo the third day. He reports, It felt like my brain was spinning, not the room, it was a very odd sensation. He reports mild nausea associated with the vertigo. Once this episode concluded, he has not had any symptoms since. 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 He has hx of severe allergies consistently throughout the year, I'm allergic to pretty much eveything. He also has hx of severe SC earlier this year which required a pacemaker to be placed and he has been taking multiple new medications since that time, including a beta jess. He has hx of HTN, HLD, Hypothyroid, anxiety, and DM. All occulomotor testing is normal at thsi time and no nystagmus or reproduction of symptoms with [place]-Hallpike testing. Very difficult to discern a cause for his vertigo symptoms at this time as they can not be reproduced. Differential diagnosis would include card
== END 2023-02-01 13:40 | disposition home or self-care (01) ==
LOC: PT 13:38
PROVIDERS: PCP Internal Medicine Adolescent Medicine; Visit Provider Nurse Practitioner Family
DX: R42 Dizziness and giddiness (principal)
CPT/HCPCS: 97163

== ENCOUNTER → 2023-02-03 12:46 | Outpatient (CLI) | payer MEDICARE, SELFPAY ==
--- NOTE | 2023-02-03 12:50 | US_ITS ---
FINAL REPORT CLINICAL HISTORY: non healing wound, DM COMPARISON: None FINDINGS: ANKLE-BRACHIAL PRESSURE INDICES Pressure indices are as follows: RIGHT LOWER EXTREMITY: Ankle-brachial pressure index: 1.3 Comments: Normal LEFT LOWER EXTREMITY: Ankle-brachial pressure index: 1.3 Comments: Normal IMPRESSION: No evidence of significant obstructive peripheral vascular disease of the lower extremities Reviewed, Interpreted and Dictated by Anil Worrell III, MD Transcribed by Deanne Austin Authenticated and [facility]
== END ==
PROVIDERS: PCP Internal Medicine Adolescent Medicine; Visit Provider Podiatrist
DX: L97.522 Non-pressure chronic ulcer of other part of left foot with fat layer exposed (principal)
CPT/HCPCS: 93923

== ENCOUNTER 2023-02-13 19:52 | Emergency (ER) | payer MEDICARE, SELFPAY ==
[2023-02-13] VITALS (12 sets, daily range): BP systolic 78–104; BP diastolic 45–63; PULSE 76–89; RESP 14–20; TEMP 36.6; O2SAT 95–99; BMI 29.5
--- NOTE | 2023-02-13 20:02 | ECG_ITS ---
APPROVED REPORT Exam: Resting ECG HR:85 bpm ECG Measurements Heart Rate 85 AXES MN 150 P 93 QRSd 165 QRS 251 QT 401 T 81 QTc 443 Conclusion ELECTRONIC VENTRICULAR PACEMAKER ABNORMAL RHYTHM ECG UNCONFIRMED REPORT Electronically signed by : Jignesh Madsen MD 02/15/2023 20:06:33
--- NOTE | 2023-02-13 21:27 | XR_ITS ---
PROCEDURE INFORMATION: Exam: XR Chest Exam date and time: 02/13/2023 9:59 PM Age: 78 years old Clinical indication: Other: Palpitations; Additional info: Palpitations, lightheadedness TECHNIQUE: Imaging protocol: Radiologic exam of the chest. Views: 1 view. COMPARISON: CR XR CHEST PORTABLE 06/25/2022 11:44 AM FINDINGS: Tubes, catheters and devices: There is a left chest implanted cardiac device. Lungs: Unremarkable. No consolidation. Pleural spaces: Unremarkable. No pleural effusion. No pneumothorax. Heart/Mediastinum: Unremarkable. No cardiomegaly. Bones/joints: Unremarkable for patient age. IMPRESSION: No dense parenchymal consolidation, pleural effusion, or pneumothorax.
--- NOTE | 2023-02-13 21:27 | HMH.EDGENADL ---
Discharge Plan Disposition Patient Disposition: Home, Self-Care Condition: Good Prescriptions Prescriptions: No Action montelukast 10 mg tablet 10 mg PO PM 30 Days tamsulosin 0.4 mg capsule,extended release 24hr 0.4 mg PO HS 90 Days fluticasone propionate 50 mcg/actuation spray,suspension 1 spray INTRANASAL BIDP PRN (Reason: allergies) 30 Days dutasteride 0.5 mg capsule 0.5 mg PO HS 90 Days fenofibrate nanocrystallized 145 mg tablet 145 mg PO DAILY 90 Days mkhrvr-nghvgpaf-ucdfkqt 24,000-76,000 -120,000 unit capsule,delayed release(DR/EC) 1 cap PO AC 30 Days fluticasone propion-salmeterol [Wixela Inhub] 500-50 mcg/dose blister with device 1 inh IH BID metformin 500 mg tablet 500 mg PO QPMWITHMEAL azelastine 137 mcg (0.1 %) aerosol,spray 2 spray intranasal BID PRN Rx Instructions: administer into each nostril albuterol sulfate [Ventolin HFA] 90 mcg/actuation HFA aerosol inhaler 2 puff inhalation Q4-6H PRN nystatin 100,000 unit/gram powder topical Patient Comments: APPLY TOPICALLY TWICE A DAY NEEDED FOR FUNGUS FOR 3 MONTHS mupirocin 2 % ointment topical gentamicin 0.1 % ointment 1 applic topical BID Qty: 30 2RF Dakin's Solution 0.125 % solution 1 applic topical DAILY Qty: 473 0RF Rx Instructions: apply on gauze daily and cover wound. bisoprolol fumarate 5 mg tablet 2.5 mg PO QDAY Qty: 30 5RF sulfamethoxazole-trimethoprim [Bactrim DS] 800-160 mg tablet 1 tab PO BID Qty: 20 0RF ketotifen fumarate 0.025 % (0.035 %) drops 1 drp Eye-Both BIDP PRN (Reason: Itching) Patient Comments: INSTILL 1 DROP IN BOTH EYES TWICE DAILY NEEDED alprazolam 0.5 mg Tablet 0.5 mg PO TIDP PRN (Reason: Anxiety) Entresto 24-26 mg tablet 1 tab PO BID Qty: 60 0RF levothyroxine 175 mcg tablet 150 mcg PO DAILY Patient Comments: TAKE 1 TABLET BY MOUTH EVERY DAY Referrals Follow up/Referrals: Jignesh Madsen MD [Primary Care Provider] - See instructions Activity Restrictions/Add. Instructions Additional Instructions/Restrictions: You were evaluated in the emergency department today. Please hold your home bisoprolol for tonight. Call your primary care provider as well as your sleeve tailor in the morning to discuss this with them. Hydrate at home is much as possible. Please return to the emergency department for any new or worsening symptoms. We would be happy to take another look at you. Clinical Impressions Clinical Impression: Orthostatic dizziness, Pre-syncope Instructions Patient Instructions: Dizziness, Nonvertigo Discharge ED Provider: Gabbie Rowland General Adult HPI <Ranulfo Barnes MD - Last Filed: 02/14/23 08:18> General Chief complaint: Weakness Stated complaint: Light headed Time Seen by Provider: 02/13/23 20:02 Mode of Arrival: Ambulatory Source of Information: Patient and Significant Other Limitations: No Limitations Description of Symptoms (Recalled from ER Triage Doc. by RN): pt arrives POV. pts significant other reports about 30 minutes ago he was sitting down and stood up. significant other reports, his eyes and face glazed over and his eyes started shaking. Pt states he feels fine now and is back to his baseline. no LOC. pt reports over the last week he has been having sinus issues and a cough. pt states this has improved. no antibiotic given. pt states he finished Bactrim a few days ago for a wound on his L great toe. pt has another appointment in the morning with the wound clinic. History of Present Illness HPI narrative: 78-year-old male with recent history of cardiac arrest with new biventricular pacemaker placement presenting with lightheadedness. Just before arrival, patient stood up from seated position. [place] lightheaded, pale, weak and had tunnel vision. mentioned that he appeared clammy and pale. No loss of consciousness. Patient w
[2023-02-13 21:35] LABS: Basophils % 0.7 % (0.1-2.0); Eosinophils % 0.7 % (0.1-12.0); Hematocrit 43.4 % (42.0-52.0); Lymphocytes # 1.6 K/mm3 (0.7-4.5); Lymphocytes % 39.8 % (10-50); Mean Corpuscular HGB Conc 32.3 g/dL (31.8-35.4); Mean Corpuscular Hemoglobin 29.8 pg (27.0-31.2); Mean Corpuscular Volume 92.4 fl (80-94); Monocytes # 0.4 K/mm3 (0.1-1.0); Monocytes % 10.1 % (1.7-9.3); Neutrophils % 48.7 % (37.0-80.0); Platelet Count 217 K/mm3 (142-424); Red Cell Distribution Width 13.3 % (11.5-17.5); White Blood Count 4.1 K/mm3 (4.8-10.8)
[2023-02-13 21:45] LABS: Chloride 99 mmol/L (98-107)
[2023-02-13 21:46] LABS: Potassium 4.1 mmoL/L (3.5-5.1); Sodium 132 mmol/L (136-145)
[2023-02-13 21:48] LABS: Alanine Aminotransferase 54 U/L (12-78); Aspartate Amino Transferase 90 U/L (17-59); Bilirubin,Total 0.6 mg/dl (0.2-1.3); Blood Urea Nitrogen 24 mg/dl (9-20); Creatinine Clearance Estimated 74 mL/min (50-200); Estimated Glomerular Filt Rate 58 ml/min (>60); GFR (African American) 70 ML/MIN (>60)
[2023-02-13 21:49] LABS: Albumin Level 3.6 g/dl (3.5-5.0); Albumin/Globulin Ratio 1.1 (1.1-1.8); Alkaline Phosphatase 64 U/L (38-126); Anion Gap 12.1 mEq/L (5-15); Calcium 9.3 mg/dl (8.4-10.2); Carbon Dioxide 25 mmol/L (22.0-30.0); Globulin 3.3 g/dL (1.3-3.2); Glucose 100 mg/dl (74-100); Total Protein,Serum 6.9 g/dl (6.3-8.2)
[2023-02-13 21:59] LABS: NT Pro Brain Natriuretic Pep. 414 pg/mL (0-450)
[2023-02-13 22:02] LABS: Troponin I < 0.01 ng/ml (0.00-0.034)
[2023-02-14] VITALS (7 sets, daily range): BP systolic 83–123; BP diastolic 44–71; PULSE 74–93; RESP 12–18; TEMP 36.7; O2SAT 97–99
[2023-02-14 00:35] LABS: Troponin I < 0.01 ng/ml (0.00-0.034)
== END 2023-02-14 01:43 | disposition home or self-care (01) ==
PROVIDERS: Emergency Medicine; Emergency Provider Emergency Medicine; PCP Internal Medicine Adolescent Medicine
DX: R42 Dizziness and giddiness (principal); R55 Syncope and collapse; Z86.74 Personal history of sudden cardiac arrest; Z95.810 Presence of automatic (implantable) cardiac defibrillator
CPT/HCPCS: 71045; 80053; 83880; 84484; 85025; 93005; 96360; 99285

== ENCOUNTER → 2023-02-17 08:00 | Outpatient (CLI) | payer MEDICARE, SELFPAY | PROVIDERS: PCP Nurse Practitioner Family; Visit Provider Nurse Practitioner Family | DX: L97.522 Non-pressure chronic ulcer of other part of left foot with fat layer exposed (principal); B96.5 Pseudomonas (aeruginosa) (mallei) (pseudomallei) as the cause of diseases classified elsewhere | CPT/HCPCS: 87070; 87077; 87186; 87205 ==

== ENCOUNTER → 2023-02-28 07:55 | Outpatient (CLI) | payer MEDICARE, SELFPAY ==
--- NOTE | 2023-02-28 08:02 | NM_ITS ---
FINAL REPORT CLINICAL HISTORY: OPEN NON HEALING WOUND OF LT GREAT TOE FINDINGS: EXISTING RELEVANT IMAGING STUDIES: 01/26/2023 TECHNIQUE: The patient was injected with 18.6 mCi of technetium 99-MDP into the right hand. Delayed imaging was also obtained. FINDINGS: On blood flow images, increased blood flow is seen to the left great toe. On blood pool imaging, increased tracer activity is seen at the left great toe and right midfoot. On delayed imaging, increased tracer activity is seen of the left great toe and medial right mid foot. IMPRESSION: Findings most consistent with osteomyelitis of the left great toe. If indicated, MRI may be helpful for correlation. Increased tracer activity of the medial right mid foot which could be posttraumatic or inflammatory. Reviewed, Interpreted and Dictated by Anil Worrell III, MD Transcribed by Socorro Azevedo Authenticated and [facility]
== END ==
PROVIDERS: PCP Internal Medicine Adolescent Medicine; Visit Provider Nurse Practitioner Family
DX: S91.109D Unspecified open wound of unspecified toe(s) without damage to nail, subsequent encounter (principal)
CPT/HCPCS: 78300; A9503

== ENCOUNTER 2023-03-02 15:30 | Outpatient (RCR) | payer MEDICARE, SELFPAY | END 2023-03-02 15:35 | disposition home or self-care (01) | LOC: PT 15:30 | PROVIDERS: PCP Nurse Practitioner Family; Visit Provider Nurse Practitioner Family | DX: L84 Corns and callosities (principal); E11.69 Type 2 diabetes mellitus with other specified complication; G57.93 Unspecified mononeuropathy of bilateral lower limbs; Z79.84 Long term (current) use of oral hypoglycemic drugs | CPT/HCPCS: 97163; 97597 ==

== ENCOUNTER 2024-05-18 15:00 | Outpatient (RCR) | payer MEDICARE, SELFPAY ==
--- NOTE | 2024-03-21 16:35 | HMH.PTOPEV ---
PT Outpatient Evaluation Rehab PT Outpatient Evaluation Start: 03/21/24 15:04 Freq: Status: Active Protocol: Document 03/21/24 15:53 ARGENTINA (Rec: 03/21/24 16:35 ARGENTINA [id number]) E-signed By Frantz Yadav, PT Outpatient Therapy Subjective History Subjective History This is the initial PT evaluation for Sameer Wayne. Pt is an 79 yo male presenting with a history of falls and LE weakness. Pt reports a PMH including L great toe amputation, ROSEANN cataract surgery, ROSEANN knee pain, LBP, diabetes, and heart failure. Pt reports having a pacemaker. Pt Reports a history of falls w/ 4-5 occurring in the last 6 months. He states at least two of the falls were because the L foot Doesn't come up and has got stuck or hit an object leading to the fall. Additionally, he states a history of his knees going out . He states he started using a cane two years ago for balance. His current functional limitation is walking due to limited energy . Pt reports observable bruising and wounds on ROSEANN UE from recent LOB and falls. New diagnosis of cancer in past 12 No months? Chief Complaint Weakness Symptoms Aggravated By Physical Activity,Walking Current Functional Limitations Squatting,Walking,Stairs Hip/Knee Eval MMT left Hip Flexion Strength Grade 3+ Fair+ Hip Abduction Strength Grade 4 Good Hip Adduction Strength Grade 4- Good- Hip External Rotation Strength Grade 4 Good Hip Internal Rotation Strength Grade 4 Good Knee Extension Strength Grade 4- Good- Knee Flexion Strength Grade 4- Good- right Hip Flexion Strength Grade 3+ Fair+ Hip Abduction Strength Grade 4 Good Hip Adduction Strength Grade 4- Good- Hip External Rotation Strength Grade 4 Good Hip Internal Rotation Strength Grade 4 Good Knee Extension Strength Grade 4- Good- Knee Flexion Strength Grade 4- Good- Ankle/Foot Eval MMT left Ankle Dorsiflexion Strength Grade 4 Good Ankle Plantarflexion Strength Grade 4 Good right Ankle Dorsiflexion Strength Grade 4 Good Ankle Plantarflexion Strength Grade 4- Good- Balance Eval Subjective Hx of Complaint Comment LE weakness Chief Complaint vertigo No Did you feel dizzy, unsteady or faint? No Prior Functional Limitations Prior Functional [place] Level ambulation w/ cane Current Functional Limitations Comment walking longer distances, stairs, squatting Hx of Falls Hx Falls Yes Number in last 6 months 5 Gait/Posture Asssessment General Gait Observation No Deviations/Normal Assistive Devices Straight Cane Level of Transfer Assist Independent Hip Observation in Gait Swing No Deviation Hip Observation in Gait Stance No Deviation Ankle/Foot Observation in Gait Stance Decreased Push Off Body Alignment Posture Leaning Timed Up and Go Test 1. Is the Timed Up and Go test result > yes or = to 12 seconds? 3. Is the Timed Up and Go Test result < no 12 seconds? Rhomberg Feet Together/Eyes open/Stable Surface pass Feet Together/Eyes Closed/Stable Surface pass Tinetti Sitting Balance Sitting Balance Steady, safe Arising from Chair Ability to Arise Able, uses arms to help Attempts to Arise Arises on 1st attempt Standing Balance Immediate Standing Balance Steady w/o support Standing Balance Steady, wide stance Nudged Response Steady Standing with Eyes Closed Steady Turning Step Pattern Turning 360 Degrees Discontinuous steps Stability Turning 360 Degrees Steady Sitting Down Sitting Down Uses arms or unsteady Gait and Step Initiation of Gait No hesitancy Right Foot Step Length Does pass stance foot Right Foot Step Height Completely clears floor Left Foot Step Length Does pass stance foot Left Foot Step Height Completely clears floor Step Description Step Symmetry Step length appears equal Step Continuity Steps appear continuous Gait Description Path Description Straight Trunk Description No sway Walking Stance Heels together Scoring and Interpretation Tinetti Composite Score (points) 24 Interpretation of Scores At risk for falls (19-24) Miscellaneous Dx PT Eval Objective Objective TUG 3 Trials av.7 5x STS: 25s Tandem L: 25s Tandem R: 5s Romberg EO: >30s Romberg EC: >30s Outpatient Therapy Assessment Impairments Problems/Impairmments Impaired Strength,Impaired Endurance,Impaired Walking, Impaired Stair Climbing, Impaired Incline Stepping, Impaired Squatting,Impaired Balance,Impaired Tinnetti Score,Impaired TUG Time Prognosis Rehab Potential Good Comment Pt is a good candidate for PT services and is expected to progress well. Clinical Impression Consistent with Diagnosis Yes Consistent with LE weakness and balance deficits Short Term Goals Number of Weeks 2 Increase Strength Yes: at least 4 or > in all LE mm Increase Ability to Stand Yes: decrease 5x STS time by at least 5s Improve Balance Yes: Increase R tandem to 15s or > Increase Tinnetti Score Yes: increase by 3 points Decrease TUG Time Yes: decrease avg time by 2s Patient to be Ind w/ HEP Yes: handout to be provided Skilled Nursing Goals Number of Weeks 4 Increase Strength Yes: at least 50% mm tested to be 5/5, no less than 4 Increase Ability to Stand Yes: decrease 5x STS time by 10s Improve Balance Yes: increase R tandem to 25s or > Increase Tinnetti Score Yes: increase by 6 points Decrease TUG Time Yes: decrease avg time by 4s Patient to be Ind w/ Advanced HEP Yes: handout to be provided Outpatient Therapy Plan of Care Treatment Plan May Include Therapeutic Exercise Including Home Yes Exercise Program Manual Therapy Techniques Yes Neuromuscular Re-education Yes Therapeutic Activities to Return to Yes Previous Functional/Work Level Gait Training Yes ADL/Self Care Education Yes Thermal Modalities Yes Electrical Stimulation No Eval/Re-Eval Yes Frequency Times per week 2 Duration Number of Weeks 4 Addendums This patient is a candidate for social No or vocational rehab? Patient/Guardian verbally acknowledges Yes understanding of treatment program and consents to further treatment? Patient/Guardian verbally acknowledges Yes understanding of diagnosis, prognosis and goals for treatment? Eval Complexity PT Charges 66755 - High Complexity Shoulder/Elbow Eval Shoulder Objective Measurements Elbow Objective Measurements PHYSICIAN CERTIFICATION: I certify the specified therapy services for Clay Wayne are required, authorized, and reviewed every 30 days.
--- NOTE | 2024-04-26 16:40 | HMH.RHREAS ---
Rehab Reassessment Rehab OP Re-assessment Start: 03/21/24 15:04 Freq: Status: Active Protocol: Document 04/26/24 16:06 ARGENTINA (Rec: 04/26/24 16:40 PHORJUSTINO [id number]) E-signed By Frantz Yadav, PT Tinetti Sitting Balance Sitting Balance Steady, safe Arising from Chair Ability to Arise Able, uses arms to help Attempts to Arise Arises on 1st attempt Standing Balance Immediate Standing Balance Steady w/o support Standing Balance Steady, wide stance Nudged Response Steady Standing with Eyes Closed Steady Turning Step Pattern Turning 360 Degrees Continuous steps Stability Turning 360 Degrees Steady Sitting Down Sitting Down Safe, steady Gait and Step Initiation of Gait No hesitancy Right Foot Step Length Does pass stance foot Right Foot Step Height Completely clears floor Left Foot Step Length Does pass stance foot Left Foot Step Height Completely clears floor Step Description Step Symmetry Step length appears equal Step Continuity Steps appear continuous Gait Description Path Description Straight Trunk Description No sway Walking Stance Heels apart Scoring and Interpretation Tinetti Composite Score (points) 25 Interpretation of Scores Low risk for falls (>24) Rehab Re-assessment Subjective Subjective Pt denies any pain today. Pt reports significant improvement from initial evaluation. Objective Objective Notes MMT: Hip Flexion: R 4/5, L 4/5 Hip Abduction: R 5/5, L 5/5 Hip Adduction: R 5/5, L 5/5 Hip IR: R 5/5, L 5/5 Knee Flexion: R 4+/5, L 4+/5 Knee Extension: R 5/5, L 5/5 Plantarflexion: R 5/5, L 5/5 Dorsiflexion: R 5/5, L 5/5 5x Sit to Stand: 21.39 seconds TUG (3 trial avg): 10.78 Tandem L= 60s Tandem R= 44s Assessment Progress Assessment Progressing as Expected Assessment Notes Pt has significantly improved in LE strength, balance, and functional outcome measures. PT services remain indicated to increase strength deficits and increase dynamic balance to reduce fall risk and return to PLOF. Patient goals met ST/6 LT/6 Plan Plan Continue POC Frequency of Therapy 1-2 days per week Duration of therapy 2-4 weeks Time and Billing Re-Eval Time 14 Charge for PT reassessment? No PHYSICIAN CERTIFICATION: I certify the specified therapy services for Clayfela Wayne are required, authorized, and reviewed every 30 days.
== END 2024-05-18 23:59 | disposition home or self-care (01) ==
LOC: PT 15:00
PROVIDERS: Visit Provider Nurse Practitioner Family
DX: R29.6 Repeated falls (principal); R26.89 Other abnormalities of gait and mobility
CPT/HCPCS: 97110; 97112; 97163; 97530

== ENCOUNTER 2024-10-17 09:46 | Outpatient (RCR) | payer MEDICARE, SELFPAY ==
--- NOTE | 2024-10-17 11:57 | HMH.PTOPWND ---
Rehab Outpt Wound Evaluation Rehab OP Wound Evaluation Start: 10/17/24 11:47 Freq: Status: Active Protocol: Document 10/17/24 11:47 ARGENTINA (Rec: 10/17/24 11:57 PHOFRED [id number]) E-signed By Frantz Yadav, PT Subjective/History History History This is the initial PT wound care eval for Clay Wayne , 79 yowm who presents with c/ o R 3rd toe wound x ~ 1-2 mos. He reports he had his nails trimmed and he believes, The girl got to close and took off the epidermis. He reports no c/o pain or tenderness in the R foot throughout this time. 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 Subjective Subjective No c/o pain at this time. No redness or drainage noted from the distal R 3rd toe at this time. Callus debrided by sharp excisional debridement with scalpel to explore the wound area of concern. After debridement, no open skin noted and full epithelialization is apparent under the callus. Wound Eval Wound Right Distal Toe - 3rd Digit Wound Type callus Wound Length (cm) 1.0 Wound Width (cm) 1.0 Wound Margins Description Well Defined Drainage Amount None Dressing Change Patient Tolerance Tolerated Well Wound Problems/Impairments Impairments Problems/Impairmments Wound Care Needs,Impaired Self Care/Self Management Prognosis Rehab Potential Innapropriate for Skilled Therapy Comment Currently pt has no open wound on his R 3rd toe after removal of callus. Skilled therapy for wound care or debridement not necessary at this time. Clinical Impression Consistent with Diagnosis Yes Outpatient Therapy Plan of Care Treatment Plan May Include Eval/Re-Eval Yes Frequency Times per week 0 Addendums This patient is a candidate for social No or vocational rehab? Patient/Guardian verbally acknowledges Yes understanding of treatment program and consents to further treatment? Patient/Guardian verbally acknowledges Yes understanding of diagnosis, prognosis and goals for treatment? Eval Complexity PT Charges 41239 - Moderate Complexity PHYSICIAN CERTIFICATION: I certify the specified therapy services for Clay Wayne are required, authorized, and reviewed every 30 days.
== END 2024-10-17 23:59 | disposition home or self-care (01) ==
LOC: PT 09:46
PROVIDERS: Visit Provider Nurse Practitioner Family
DX: L97.511 Non-pressure chronic ulcer of other part of right foot limited to breakdown of skin (principal)
CPT/HCPCS: 97162

== ENCOUNTER 2025-01-16 12:53 | Outpatient (CLI) | payer MEDICARE, SELFPAY ==
--- OUTSIDE RECORDS SUMMARY | 2024-12-27 11:30 | XMS_ITS ---
Author Organization [facility] Address [address] [facility] [address] [place], [place] [address] Care Team Providers Care Maintenance Shop Manager Name Role Phone Jignesh Madsen Primary Care Provider Bushra Mccarty Unavailable [phone] REASON FOR VISIT 3 month check up Encounters Encounter Location Date Provider Diagnosis [facility] [address] [facility] [address] [place], [place] [address] 12/27/2024 Bushra Mccarty Plan Of Treatment Next Appt Details Provider Name:Bushra Hughes ce, 04/11/2025 03:30:00 PM, [address] [facility], [address], [place], [place], [address], Progress Notes * Clay WAYNE VDOB:[birth year] (79 yo M)Acc No.[id number]:12/27/2024 Progress Notes Patient: Santo JohnsClay MOYA V Provider: CAMILLE Hanna :1945 A ge:79 Y S ex:Male Date:12/27/2024 Address:[id number] Pcp:Jignesh Madsen Subjective: * Chief Complaints: * 1 . 3 month check up. * Medical History: Objective: * Vitals: Assessment: Plan: * Treatment: * * Electronic signature of Maty Mccarty APRN on 01/16/2025 at 01:02 PM EDT Sign off status: Pending * Provider: CAMILLE Hanna Date: 0 12/27/2024 Generated for Aria valles/Kya/Kimberly on: 0 01/16/2025 01:02 PM EDT
--- OUTSIDE RECORDS SUMMARY | 2025-01-03 10:00 | XMS_ITS ---
Author Organization [facility] Address [address] [place] [address] Care Team Providers Care Business Broker Name Role Phone Jignesh Madsen Primary Care Provider Bushra Mccarty Unavailable [phone] Allergies Allergen (clinical drug ingredient) Drug/Non Drug Allergy documented on EMR Reaction Allergy Type Onset Date Status EGGS (uncoded) nausea Allergy Activ e NIASPAN ER (uncoded) Unknown Allergy Active SULFA IN SOME DAVID (uncoded) makes him wheeze Allergy Active TETANUS (uncoded) Unknown Allergy Ac tive Fish Oil not effective Drug Allergy Act tiffany REASON FOR VISIT 3 month follow up Medications Medication SIG (Take, Route, Frequency, Duration) Notes Start Date End Date Status ALPRAZolam 0.5 MG TAKE 1 TABLET BY MOUTH 3 TIMES A DAY NEEDED; Duration: 30 11/27/2024 Active Dutasteride 0.5 MG TAKE 1 CAPSULE BY MOUTH DAILY; Duration: 90 Active Montelukast Sodium 10 MG TAKE 1 TABLET BY MOUTH EVERY EVENING; Duration: 90 Active Advair Diskus 250-50 MCG/ACT 1 PUFF(S) INHALED 2 TIMES A DAY; Duration: 30 days Active Albuterol Sulfate HFA 108 (90 Base) MCG/ACT 1 puff as needed Inhalation every 6 hours; Duration: 30 days Active Synthroid 137 MCG 1 tab(s) orally once a day; Duration: 30 days Active Gabapentin 100 MG 1 or 2 capsule at bedtime Orally Once a day as needed for nerve pain; Duration: 30 days 10/02/2024 Active metFORMIN HCl 500 MG 1 tablet with a meal Orally daily; Duration: 90 days Active Fenofibrate 145 MG TAKE 1 TABLET BY MOUTH ONCE DAILY; Duration: 90 Active CORLANOR 5 mg 1 tab(s) orally 2 times a day (with meals); Duration: 90 days Active Creon 52595-08939 UNIT TAKE 1 CAPSULE BY MOUTH BEFORE MEALS; Duration: 30 Active Flomax 0.4 MG 1 CAP(S) ORALLY ONCE A DAY; Duration: 90 *Please review and pick correct strength-formulat ion from [facility] options. If intended option is not shown, discontinue and re-order from Quick Search* Active Corlanor 5 MG 1 tab(s) orally 2 times a day (with meals); Duration: 90 days Active Mupirocin 2 % 1 rodrigo applied topically 3 times a day; Duration: 5 days 03/09/2024 Active Entresto 24-26 MG 1 tab(s) orally once a day; Duration: 90 days Active Excedrin Extra Strength 1 TAB ORALLY 2-3 TIMES DAILY PRN *Please review and pick correct strength-formulat ion from [facility] options. If intended option is not shown, discontinue and re-order from Quick Search* Active Vitamin C 500 MG 1 tab(s) orally twice daily Active Align 4 MG 1 CAP(S) ORALLY ONCE A DAY *Please review and pick correct strength-formulat ion from [facility] options. If intended option is not shown, discontinue and re-order from Quick Search* Active Fluticasone Propionate 50 MCG/ACT 2 sprays intranasally once a day prn Active Vitamin D3 125 MCG (5000 UT) 1 cap(s) orally once a day Active Zinc 50 MG QD Active ALLERGY INJECTIONS WEEKLY A ctive Levocetirizine Dihydrochloride 5 MG 1 tab(s) orally once a day (in the evening) Active Vital Signs Temperature 97.5 degrees Fahrenheit 01/04/20 25 Blood pressure systolic 118 mm Hg 01/04/20 25 Blood pressure diastolic 72 mm Hg 025 Heart Rate 88 /min 01/03/2025 Height 6 ft 2.5 in in 01/03/2025 Weight 233.6 lbs 01/03/2025 BMI 29.59 kg/m2 01/03/2025 Encounters Encounter Location Date Provider Diagnosis [facility] [address] [place] [address] 01/03/2025 Bushra Mccarty 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 ; Anxiety disorder, unspecified F41.9 ; Neuralgia of both lower extremities G57.93 ; Hypothyroidism, unspecified type E03.9 ; Vitamin D deficiency E55.9 ; Chronic combined systolic and diastolic CHF (congestive heart failure) I50.42 ; Callus of foot L84 and Neuropathic pain M79.2 Assessments Encounter Date Diagnosis (ICD Code) Assessment Notes Treatment Notes Treatment Clinical Notes Section Notes 01/03/2025 Type 2 diabetes mellitus with other skin complications (ICD-10 - E11.628) goal A1C < 7, no changes recommended, monitoring labs updated as noted 01/03/2025 Anxiety disorder, unspecified (ICD-10 - F41.9) has been on xanax for many years, still tolerating well and likely to do quite poorly with any changes 01/03/2025 Neuralgia of both lower extremities (ICD-10 - G57.93) Neuropathy labs normal. increases risk of complications in feet, falls, etc. continue podiatry FU 01/03/2025 Hypothyroidism, unspecified type (ICD-10 - E03.9) continue oral replacement, TSH in goal range 01/03/2025 Vitamin D deficiency (ICD-10 - E55.9) continue oral replacement 01/03/2025 Chronic combined systolic and diastolic CHF (congestive heart failure) (ICD-10 - I50.42) continue Entresto, cardiology following 01/03/2025 Callus of foot (ICD-10 - L84) No evidence of complication at this time, saw podiatry recently. I encouraged him to monitor this closely every day and to let me or podiatry know of any additional symptoms. 01/03/2025 Neuropathic pain (ICD-10 - M79.2) Chronic neuropathy symptoms, likely multifactorial. Reasonable to try low-dose gabapentin at night on a as needed basis initially. Possible side effects and return precautions reviewed. If his symptoms persist or certainly if he has any exertional symptoms we will need to evaluate for small vessel disease with ABIs or CTA of the lower extremities. Plan Of Treatment Treatment Notes Assessment Notes Type 2 diabetes mellitus wit h other skin complications goal A1C < 7, no changes recommended, monitoring labs updated as noted Anxiety disorder, unspecified has been o n xanax for many years, still tolerating well and likely to do quite poorly with any changes Neuralgia of both lower extremities Neur opathy labs normal. increases risk of complications in feet, falls, etc. continue podiatry FU Hypothyroidism, unspecified type continu e oral replacement, TSH in goal range Vitamin D deficiency continue oral repla cement Next Appt Details Follow Up: 3 Months, Reason: Provider Name:Bushra Zazueta Saul ce, 04/11/2025 03:30:00 PM, [address], [place], [address], Progress Notes * JAYLENClay GUTIERREZ VDOB:[birth year] (79 yo M)Acc No.[id number]:01/03/2025 Progress Notes Patient: Clay PRIETO V Provider: CAMILLE Hanna :1945 A ge:79 Y S ex:Male Date:01/03/2025 Address:[address] [place] [address] [id number] Pcp:Jignesh Madsen Subjective: * Chief Complaints: * 1 . 3 month follow up. * HPI: g en: 79-year-old male here for 3 months follow up. No acute concerns aside from difficulty with asthma/allergy symptoms since previous provider closed their office and is having difficulty getting re-established on treatment ([place]) Last visit we added gabapentin low dose for neuropathy symptoms No falls in the past 3-6 months. Seeing cardiology about every 6 months for CHF/Pacemaker management. BP continues to run low-normal. On Entresto. No statin due to intolerance, on fenofibrate. Dr Jiménez recommended trying to stop Corlanor since he has PPM but has had some recurrence of tachycardia so he resumed States doing well on current regimen with diabetes. Denies checking blood sugars at home. Takes medications as prescribed without AE. States he follows with ENT in regard to asthma and allergies. Currently, well controlled. 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 R ESPIRATORY: Reviewed, No Symptoms Reported: Douglas Khan ARDIOLOGY: Reviewed, No Symptoms Reported: Y es. C ONSTITUTIONAL: Reviewed, No Symptoms Reported: Y es. D ERMATOLOGY: Dry or sensitive skin y es. E NDOCRINOLOGY: Thyroid disease y es, treated . E NT: Reviewed, No Symptoms Reported: Y es. G ASTROENTEROLOGY: Reviewed, No Symptoms Reported: Y es. H EMATOLOGY/LYMPH: Easy bruising y es. M USCULOSKELETAL: back pain y es. J oint stiffness y es. ? N EUROLOGY: Reviewed, No Symptoms Reported: Y es. U ROLOGY: Reviewed, No Symptoms Reported: Y es. 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 * Surgical History: r ight breast cysts , skin biopsy on neck 2015, 2 skin lesion biopsies 2016, cataract removal Rt , cardiac pacemaker 06/25/22, Amputation left great toe, Dr Dill 2022. * Hospitalization/Major Diagno stic Procedure: H eart issue/anxiety , Cardiac ablation , cellulitis 12/2016, [facility] cardiac arrest, pacemaker placed 06/24-06/26 2022. * Family History: F ather: , heart disease, cancer, lung, cancer, , alcohol abuse. M other: , cancer, bladder, uterus. P aternal Grand Father: . P aternal Grand Mother: . M aternal Grand Father: . M aternal Grand Mother: . P aternal uncle: . P aternal aunt: . M aternal uncle: alive. M aternal aunt: . Siblings: alive, brother , sister- breast cancer. 1 brother(s) , 1 sister(s) . .? * Social History: S moking: no A re you a:: nonsmoker , Additional Findings: Tobacco User: Chews tobacco.?Recreational drug use: no. Exercise: no. Home smoke detector use: yes. Caffeine: yes, 1-4 cups coffee daily. Living Will: Yes, [place]. Alcohol: no. Sexually active: yes. Travel outside [place]: no. 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 * Medications: T aking Levocetirizine Dihydrochloride 5 MG Tablet 1 tab(s) orally once a day (in the evening) , Taking Zinc 50 MG TAB QD , Taking ALLERGY INJECTIONS WEEKLY , Taking Fluticasone Propionate 50 MCG/ACT Suspension 2 sprays intranasally once a day prn , Taking Vitamin D3 125 MCG (5000 UT) Capsule 1 cap(s) orally once a day , Taking Vitamin C 500 MG Tablet 1 tab(s) orally twice daily , Taking Align 4 MG CAPSULE 1 CAP(S) ORALLY ONCE A DAY , Notes to Pharmacist: *Please review and pick correct strength-formulation from [facility] options. If intended option is not shown, discontinue and re-order from Quick Search*, Taking Excedrin Extra Strength 1 TAB ORALLY 2-3 TIMES DAILY PRN , Notes to Pharmacist: *Please review and pick correct strength-formulation from [facility] options. If intended option is not shown, discontinue and re-order from Quick Search*, Taking Creon 25323-16860 UNIT Capsule Delayed Release Particles TAKE 1 CAPSULE BY MOUTH BEFORE MEALS , Taking Flomax 0.4 MG CAPSULE 1 CAP(S) ORALLY ONCE A DAY , Notes to Pharmacist: *Please review and pick correct strength-formulation from [facility] options. If intended option is not shown, discontinue and re-order from Quick Search*, Taking Mupirocin 2 % Ointment 1 rodrigo applied topically 3 times a day , Taking Entresto 24-26 MG Tablet 1 tab(s) orally once a day , Taking Corlanor 5 MG Tablet 1 tab(s) orally 2 times a day (with meals) , Taking Synthroid 137 MCG Tablet 1 tab(s) orally once a day , Taking Fenofibrate 145 MG Tablet TAKE 1 TABLET BY MOUTH ONCE DAILY , Taking CORLANOR 5 mg tablet 1 tab(s) orally 2 times a day (with meals) , Taking Gabapentin 100 MG Capsule 1 or 2 capsule at bedtime Orally Once a day as needed for nerve pain , Taking metFORMIN HCl 500 MG Tablet 1 tablet with a meal Orally daily , Taking Montelukast Sodium 10 MG Tablet TAKE 1 TABLET BY MOUTH EVERY EVENING , Taking Advair Diskus 250-50 MCG/ACT Aerosol Powder Breath Activated 1 PUFF(S) INHALED 2 TIMES A DAY , Taking ALPRAZolam 0.5 MG Tablet TAKE 1 TABLET BY MOUTH 3 TIMES A DAY NEEDED , Taking Dutasteride 0.5 MG Capsule TAKE 1 CAPSULE BY MOUTH DAILY , Taking Albuterol Sulfate HFA 108 (90 Base) MCG/ACT Aerosol Solution 1 puff as needed Inhalation every 6 hours , Medication List reviewed and reconciled with the patient * Allergies: T ETANUS, NIASPAN ER, Fish Oil: not effective, SULFA IN SOME DAVID: makes him wheeze, EGGS: nausea. Objective: * Vitals: N urse: KJ, Pain: 0, Temp: 97.5, RR: 18, HR: 88, BP: 118/72, Ht: 6 ft 2.5 in, Wt: 233.6, BMI:29.59. * Examination: G eneral Examination: General P leasant and Cooperative, NAD on RA,. Heart: R egular Rate and Rhythm, left chest PM. Lungs: c lear to auscultation,. Abdomen: s oft, NT/ND, BS present. Neurologic Exam: A lert and oriented x 3. Skin: m arked senile purpura on bilat forearms. Peripheral pulses: n ormal (2+) bilaterally. Extremities: n o edema, left great toe amputation site well healed, diminished sensation diffusely bilat feet. neck s upple,, no thyromegaly,, no lymphadenopathy,. Psych N ormal Mood/Affect. Assessment: * Assessment: 1. T ype 2 diabetes mellitus with other skin complications - E11.628 (Primary) 2 . A nxiety disorder, unspecified - F41.9 3 . N euralgia of both lower extremities - G57.93 4 . H ypothyroidism, unspecified type - E03.9 5 . V itamin D deficiency - E55.9 6 . C hronic combined systolic and diastolic CHF (congestive heart failure) - I50.42 7 . C allus of foot - L84 ?8. N europathic pain - M79.2 Plan: * Treatment: 2. A nxiety disorder, unspecified Notes: has been on xanax for many years, still tolerating well and likely to do quite poorly with any changes 3. N euralgia of both lower extremities Notes: Neuropathy labs normal. increases risk of complications in feet, falls, etc. continue podiatry FU 4. H ypothyroidism, unspecified type Notes: continue oral replacement, TSH in goal range 5. V itamin D deficiency Notes: continue oral replacement 6. C hronic combined systolic and diastolic CHF (congestive heart failure) Clinical Notes: continue Entresto, cardiology following 7. C allus of foot Clinical Notes: No evidence of complication at this time, saw podiatry recently. I encouraged him to monitor this closely every day and to let me or podiatry know of any additional symptoms. ? 8. N europathic pain Clinical Notes: Chronic neuropathy symptoms, likely multifactorial. Reasonable to try low-dose gabapentin at night on a as needed basis initially. Possible side effects and return precautions reviewed. If his symptoms persist or certainly if he has any exertional symptoms we will need to evaluate for small vessel disease with ABIs or CTA of the lower extremities. * Follow Up: 3 Months * * Sign off status: Completed true * Provider: CAMILLE Hanna Date: 0 01/03/2025 Generated for Aria valles/Kya/Kimberly on: 0 01/16/2025 01:01 PM EDT History and Physical Notes * Examination Category Sub-Category Detail Notes Category Not es General Examination Heart: Regular Rate and Rhythm, left chest PM Lungs: clear to auscultatio n, Abdomen: soft, NT/ND, BS pres ent Extremities: no edema, left great toe amputation site well healed, diminished sensation diffusely bilat feet Skin: marked senile purpur a on bilat forearms Neurologic Exam: Alert and oriented x 3 Peripheral pulses: normal (2+) bilatera lly neck supple,, no thyromeg chico,, no lymphadenopathy, General Pleasant and Coopera tive, NAD on RA, Psych Normal Mood/Affect
--- NOTE | 2025-01-16 13:00 | CA_ITS ---
APPROVED REPORT EXAM: Comprehensive 2D, Doppler, and color-flow Echocardiogram Bone Density Technician: Lisa Burton RT(R) Ht: 6 ft 3 in Wt: 222lbs BSA: 2.29 BP: 120/73 mmHg Indications: HFpEF, pacemaker 2D Dimensions Left Atrium 4.30 cm M: 3.0 - 4.0 LVEF (Barboza's) 44.10 % M: 52 - 72 LVOT 2.02 cm (M/F) 1.5-2.5 LV Volume 125.00 mL M: 62 - 150 LV Volume Index 54.3 mL/m2 M: 34 - 74 LA Volume 48.40 mL LA Volume Index 21.04 mL/m2 (M/F) 16-34 EF AP4 46.30 % EF AP2 40.8 % EF BP 44.1 % GL Strain -12.1 % M-Mode Dimensions RVDd 2.65 cm (0.9-2.6) LVDd 5.15 cm (3.5-5.7) Ao Diam 2.91 cm (2.0-3.7) LVDs 3.98 cm (3.5-5.7) IVSd 1.06 cm (0.6-1.1) PWd 0.95 cm (0.6-1.1) EF (Teich) 45.30% FS 22.70% EDV (Teich) 126.60 mL ESV (Teich) 69.20 mL LV Diastology MED E' 4.4 (>= 7 cm/sec) LAT E' 6.6 (>= 10 cm/sec) Aortic Valve LVOT Max 100.0 (70-110 cm/s) SUNIL Index 0.59 cm2/m2 LVOT VTI 20.32 cm AoV Peak Dilshad. 269.0 (50-130 cm/s) AO Mean GR. 14.30 (<5 mmHg) AO VTI 48.5 (18-25 cm) SUNIL (VTI) 1.34 (2.5-4.5 cm2) Tricuspid Valve TR P. Velocity 322.00 cm/s RAP Estimate 10.00 mmHg RVSP 51.40 mmHg Left Ventricle The left ventricle is normal size. Left ventricular systolic function is mildly reduced. There is increased left ventricular wall thickness. There is mild global hypokinesis present. The septum is asynchronous. The left ventricular diastolic function is indeterminate. LVEF is 45-50% Right Ventricle The right ventricle is mildly dilated. The right ventricular systolic function is normal. Atria The left atrium is mildly dilated. The right atrium is mildly dilated. There is no color Doppler evidence of interatrial shunt. Aortic Valve The aortic valve is mildly thickened. Mild aortic stenosis is present. SUNIL by continuity equation is 1.6 cm2. Peak velocity 2.8 m/s. Mean AV gradient 14 mmHg. Max AV gradient 27 mmHg. Mild to moderate aortic regurgitation is present. Mitral Valve The mitral valve is mildly thickened. No evidence of mitral valve stenosis. Mild mitral regurgitation is present. Tricuspid Valve The tricuspid valve leaflets are thin and pliable. Mild tricuspid regurgitation. RVSP is 25-30 mmHg. Pulmonic Valve The pulmonary valve is grossly normal in structure. Mild pulmonic valve regurgitation is present. Great Vessels The aortic root is normal in size. IVC is normal in size and collapses >50% with inspiration. Pericardium There is a small-sized, anterior pericardial effusion present. The largest pocket measures 0.3 cm in diastole. No echo indications of tamponade. Other Information Study Quality: Fair Conclusion Mildly reduced LV systolic function (LVEF 45-50%). Mild RV dilation with normal RV function. Biatrial dilation. Mild (SUNIL by continuity equation is 1.6 cm2. Peak velocity 2.8 m/s. Mean AV gradient 14 mmHg. Max AV gradient 27 mmHg). Mild to moderate AI. Mild MR, mild TR, mild PI. Small-sized, anterior pericardial effusion present. The largest pocket measures 0.3 cm in diastole. No echo indications of tamponade. Electronically signed by : Jessy Arellano MD 01/17/2025 23:20:00
--- OUTSIDE RECORDS SUMMARY | 2025-01-16 13:02 | XMS_ITS | Clinical Summary ---
Author Organization [facility] Address [address] [place] [address] Care Team Providers Care Filler Spreader Name Role Phone Unavailable Primary Care Provider Unavailabl e Social History Tobacco Use Types Packs/Day Years Used Date Smoking Tobacco: Never Assessed Sex and Gender Information Value Date Recorded Sex Assigned at Not on file Legal Sex Male 8:39 PM EDT Gender Identity Not on file Sexual Orientation Not on file Plan of Treatment Health Maintenance Due Date Last Done Comments [facility]-Depression Screening 1945 [facility]-Medicare Annual Wellness (AWV) 1945 [facility]-Infant/Child/Adol SDOH Screenings 1945 [facility]- SDOH Screenings 1961 [facility]-Adult SDOH Screenings 1961 [facility]-DTaP,Tdap,and Td Vaccines (1 - Tdap) 1962 [facility]-Pneumococcal Vaccine: 50+ Years (2 of 2 - PPSV23) 07/29/2017 07/29/2016 [facility]-RSV Vaccine: 60+ Years or (1 - 1-dose 75+ series) 2018 [facility]-Zoster Vaccines (2 of 2) 10/08/2022 08/13/2022 [id number] Vaccine (6 - 2023- season) 2024 02/19/2022, 10/02/2021, 03/19/2021, Additional history exists [facility]-Influenza Vaccine (#1) 01/21/202502/19, 02/02/2018, 04/11/2017 HPV Vaccines Aged Out No longer eligi ble based on patient's age to complete this topic [facility]-HIB Vaccines Aged Out No longer e ligible based on patient's age to complete this topic [facility]-Hepatitis A Vaccines Aged Out No longer eligible based on patient's age to complete this topic [facility]-IPV Vaccines Aged Out No longer e ligible based on patient's age to complete this topic [facility]-Rotavirus Vaccines Aged Out No lo nger eligible based on patient's age to complete this topic Insurance [employer] MEDICARE
--- OUTSIDE RECORDS SUMMARY | 2025-01-16 13:02 | XMS_ITS | Encounter Summary ---
Author Organization Healthcare Address [address] [place] [address] Care Team Providers Care Reading Intervention Teacher Name Role Phone Unavailable Primary Care Provider Unavailabl e Encounter Details Date Type Department Care Team (Late st Contact Info) Description 04/02/2021 Lab Requisition [facility] [address] [place] [address] Jeremie Thayer, DPM [address] [facility] [address] [place] [id number] Cellulitis of right lower limb Social History Tobacco Use Types Packs/Day Years Used Date Smoking Tobacco: Never Assessed Sex and Gender Information Value Date Recorded Sex Assigned at Not on file Legal Sex Male 8:39 PM EDT Gender Identity Not on file Sexual Orientation Not on file documented as of this encounter Plan of Treatment Not on file documented as of this encounter Procedures Procedure Name Priority Date/Time Associated Diagnosis Comments ROUTINE CULTURE AND GRAM STAIN Routine 04/02/2021 12:00 PM EST Cellulitis of right lower limb documented in this encounter Results * (ABNORMAL) Routine Culture and Gram Stain (04/02/2021 12:00 PM EST) Culture Moderate Growth 2:49 PM EST [facility] Culture Mixed skin carmelo(A) 04/04 2:49 PM EST [facility] Comment:The organism value f or this result has been updated. These results have been appended to the previously preliminary verified report. Gram Stain Result No polymorphonuclear leukocytes seen(A) 04/04/2021 2:49 PM EST [facility] Gram Stain Result Rare Gram positive cocci in clusters(A) 04/04/2021 2:49 PM EST [facility] Swab Topography unknown / Unknown 04/02/2021 12:00 PM EST 04/02/2021 6:52 PM EST us Jeremie Thayer DPM LAB MICROBIOLOGY - GENERAL ORD ERABLES Final Result Performing Organization Address City/State/[facility] Co de Phone Number [facility] [address] [place] [address] documented in this encounter Visit Diagnoses Diagnosis Cellulitis of right lower limb documented in this encounter
--- OUTSIDE RECORDS SUMMARY | 2025-01-16 13:02 | XMS_ITS | Patient Health Record ---
Author Organization [facility] Address [address] [place] [address] Care Team Providers Care Superintendent Sales Name Role Phone Jignesh Madsen Primary Care Provider Bushra Mccarty Unavailable [phone] Migration, Provider Unavailable Unavailable Allergies Allergen (clinical drug ingredient) Drug/Non Drug Allergy documented on EMR Reaction Allergy Type Onset Date Status EGGS (uncoded) nausea Allergy Activ e NIASPAN ER (uncoded) Unknown Allergy Active SULFA IN SOME DAVID (uncoded) makes him wheeze Allergy Active TETANUS (uncoded) Unknown Allergy Ac tive Fish Oil not effective Drug Allergy Act tiffany Results Component Value Reference Range Notes LIPID PANEL, STANDARD (7600) Reviewed date:03/26/2024 09:37:15 AM Interpretation: Performing Lab:CB, [facility] [id number], [place] Alex Chao Notes/Report: NON-FASTING; NON-FASTING; NON-FASTING; NON-FASTING; NON-FAST FASTING:YES FASTING: YES CHOLESTEROL, TOTAL 157 <200 mg/dL HDL CHOLESTEROL 41 > OR = 40 mg/dL TRIGLYCERIDES 147 <150 mg/dL LDL-CHOLESTEROL 92 Reference range: <100 Desirable range <100 mg/dL for primary prevention; <70 mg/dL for patients with CHD or diabetic patients with > or = 2 CHD risk factors. LDL-C is now calculated using the Mio calculation, which is a validated novel method providing better accuracy than the Friedewald equation in the estimation of LDL-C. Maycol BEAUCHAMP et al. PAULINE. 2013;310(19): 6657-7718 (http://education.[employer]ern [employer]/faq/BOZ950) CHOL/HDLC RATIO 3.8 <5.0 (calc) NON HDL CHOLESTEROL 116 <130 mg/dL (calc) For patients with diabetes plus 1 major ASCVD risk factor, treating to a non-HDL-C goal of <100 mg/dL (LDL-C of <70 mg/dL) is considered a therapeutic option. CBC (INCLUDES DIFF/PLT) (639 9) Reviewed date:03/26/2024 09:37:16 AM Interpretation: Performing Lab:AMI, [facility] [address], [place] Alex Chao Notes/Report: NON-FASTING; NON-FASTING; NON-FASTING; NON-FASTING; NON-FAST FASTING:YES FASTING: YES WHITE BLOOD CELL COUNT 5.0 3.8-10.8 Thousand/ uL RED BLOOD CELL COUNT 4.43 4.20-5.80 Million/uL HEMOGLOBIN 14.1 13.2-17.1 g/dL HEMATOCRIT 42.4 38.5-50.0 % MCV 95.7 80.0-100.0 fL MCH 31.8 27.0-33.0 pg MCHC 33.3 32.0-36.0 g/dL For adults, a slight decrease in the calculated MCHC value (in the range of 30 to 32 g/dL) is most likely not clinically significant; however, it should be interpreted with caution in correlation with other red cell parameters and the patient's clinical condition. RDW 12.3 11.0-15.0 % PLATELET COUNT 323 140-400 Thousand/uL MPV 10.1 7.5-12.5 fL ABSOLUTE NEUTROPHILS [phone] cells/uL ABSOLUTE LYMPHOCYTES [phone] cells/uL ABSOLUTE MONOCYTES 365 200-950 cells/uL ABSOLUTE EOSINOPHILS 50 15-500 cells/uL ABSOLUTE BASOPHILS 30 0-200 cells/uL NEUTROPHILS 53.1 LYMPHOCYTES 38.0 MONOCYTES 7.3 EOSINOPHILS 1.0 BASOPHILS 0.6 COMPREHENSIVE METABOLIC PANE L (13422) Reviewed date:03/26/2024 09:37:16 AM Interpretation: Performing Lab:AMI [facility] [address], [place] Alex Chao Notes/Report: NON-FASTING; NON-FASTING; NON-FASTING; NON-FASTING; NON-FAST FASTING:YES FASTING: YES GLUCOSE 74 65-99 mg/dL Fasting reference interval UREA NITROGEN (BUN) 14 7-25 mg/dL CREATININE 1.05 0.70-1.22 mg/dL EGFR 71 > OR = 60 mL/min/1.73m2 BUN/CREATININE RATIO SEE NOTE: 6-22 (calc) Not Reported: BUN and Creatinine are within reference range. SODIUM 140 135-146 mmol/L POTASSIUM 4.4 3.5-5.3 mmol/L CHLORIDE 106 98-110 mmol/L CARBON DIOXIDE 24 20-32 mmol/L CALCIUM 9.6 8.6-10.3 mg/dL PROTEIN, TOTAL 6.8 6.1-8.1 g/dL ALBUMIN 3.8 3.6-5.1 g/dL GLOBULIN 3.0 1.9-3.7 g/dL (calc) ALBUMIN/GLOBULIN RATIO 1.3 1.0-2.5 (calc) BILIRUBIN, TOTAL 0.6 0.2-1.2 mg/dL ALKALINE PHOSPHATASE 55 35-144 U/L AST 26 10-35 U/L ALT 13 9-46 U/L HEMOGLOBIN A1c (496) Reviewed date:03/26/2024 09:37:16 AM Interpretation: Performing Lab:AMI [facility] [id number] [facility] Alex Chao Notes/Report: NON-FASTING; NON-FASTING; NON-FASTING; NON-FASTING; NON-FAST FASTING:YES FASTING: YES HEMOGLOBIN A1c 5.1 <5.7 % of total Hgb For the purpose of screening for the presence of diabetes: <5.7% Consistent with the absence of diabetes 5.7-6.4% Consistent with increased risk for diabetes (prediabetes) > or =6.5% Consistent with diabetes This assay result is consistent with a decreased risk of diabetes. Currently, no consensus exists regarding use of hemoglobin A1c for diagnosis of diabetes in children. According to [place] Diabetes Association (ADA) guidelines, hemoglobin A1c <7.0% represents optimal control in non- diabetic patients. Different metrics may apply to specific patient populations. Standards of Medical Care in Diabetes(ADA). TSH W/REFLEX TO FT4 (17196) Reviewed date:03/26/2024 09:37:16 AM Interpretation: Performing Lab:[facility]I [facility] [address] [facility] HospitalEvvxXR[address] Alex Chao Notes/Report: NON-FASTING; NON-FASTING; NON-FASTING; NON-FASTING; NON-FAST FASTING:YES FASTING: YES TSH W/REFLEX TO FT4 1.24 0.40-4.50 mIU/L COMPREHENSIVE METABOLIC PANE L (65263) Reviewed date:09/21/2024 02:46:45 PM Interpretation: Performing Lab:AMI, [facility] [address] [facility], [facility] HospitalJsyvGF[address] Alex Chao Notes/Report: NON-FASTING; NON-FASTING; NON-FASTING; NON-FASTING; NON-FAST GLUCOSE 90 65-99 mg/dL Fasting reference interval UREA NITROGEN (BUN) 22 7-25 mg/dL CREATININE 1.04 0.70-1.22 mg/dL EGFR 72 > OR = 60 mL/min/1.73m2 BUN/CREATININE RATIO SEE NOTE: 6-22 (calc) Not Reported: BUN and Creatinine are within reference range. SODIUM 135 135-146 mmol/L POTASSIUM 4.3 3.5-5.3 mmol/L CHLORIDE 101 98-110 mmol/L CARBON DIOXIDE 25 20-32 mmol/L CALCIUM 9.9 8.6-10.3 mg/dL PROTEIN, TOTAL 6.8 6.1-8.1 g/dL ALBUMIN 4.1 3.6-5.1 g/dL GLOBULIN 2.7 1.9-3.7 g/dL (calc) ALBUMIN/GLOBULIN RATIO 1.5 1.0-2.5 (calc) BILIRUBIN, TOTAL 0.5 0.2-1.2 mg/dL ALKALINE PHOSPHATASE 55 35-144 U/L AST 22 10-35 U/L ALT 14 9-46 U/L MAGNESIUM (622) Reviewed date:09/21/2024 02:46:45 PM Interpretation: Performing Lab:AMI [facility] [address] [facility], [facility] HospitalMabmPT[address] Alex Chao Notes/Report: NON-FASTING; NON-FASTING; NON-FASTING; NON-FASTING; NON-FAST MAGNESIUM 2.0 1.5-2.5 mg/dL CBC (INCLUDES DIFF/PLT) (639 9) Reviewed date:09/21/2024 02:46:45 PM Interpretation: Performing Lab:AMI [facility] [id number] [facility], [facility] CenterMkqyNZ[address] Alex Chao Notes/Report: NON-FASTING; NON-FASTING; NON-FASTING; NON-FASTING; NON-FAST WHITE BLOOD CELL COUNT 6.6 3.8-10.8 Thousand/ uL RED BLOOD CELL COUNT 4.28 4.20-5.80 Million/uL HEMOGLOBIN 13.7 13.2-17.1 g/dL HEMATOCRIT 41.7 38.5-50.0 % MCV 97.4 80.0-100.0 fL MCH 32.0 27.0-33.0 pg MCHC 32.9 32.0-36.0 g/dL For adults, a slight decrease in the calculated MCHC value (in the range of 30 to 32 g/dL) is most likely not clinically significant; however, it should be interpreted with caution in correlation with other red cell parameters and the patient's clinical condition. RDW 12.4 11.0-15.0 % PLATELET COUNT 263 140-400 Thousand/uL MPV 9.9 7.5-12.5 fL ABSOLUTE NEUTROPHILS 4118 5090-9277 cells/uL ABSOLUTE LYMPHOCYTES 8205 216-1409 cells/uL ABSOLUTE MONOCYTES 521 200-950 cells/uL ABSOLUTE EOSINOPHILS 20 15-500 cells/uL ABSOLUTE BASOPHILS 53 0-200 cells/uL NEUTROPHILS 62.4 LYMPHOCYTES 28.6 MONOCYTES 7.9 EOSINOPHILS 0.3 BASOPHILS 0.8 HEMOGLOBIN A1c (496) Reviewed date:09/21/2024 02:46:45 PM Interpretation: Performing Lab:AMI [facility] [id number] [facility], [facility] HospitalFprhCE[address] Alex Chao Notes/Report: NON-FASTING; NON-FASTING; NON-FASTING; NON-FASTING; NON-FAST HEMOGLOBIN A1c 5.0 <5.7 % For the purpose of screening for the presence of diabetes: <5.7% Consistent with the absence of diabetes 5.7-6.4% Consistent with increased risk for diabetes (prediabetes) > or =6.5% Consistent with diabetes This assay result is consistent with a decreased risk of diabetes. Currently, no consensus exists regarding use of hemoglobin A1c for diagnosis of diabetes in children. According to [place] Diabetes Association (ADA) guidelines, hemoglobin A1c <7.0% represents optimal control in non- diabetic patients. Different metrics may apply to specific patient populations. Standards of Medical Care in Diabetes(ADA). TSH W/REFLEX TO FT4 (18833) Reviewed date:09/21/2024 02:46:45 PM Interpretation: Performing Lab:AMI, [facility] [address], [place] Alex Chao Notes/Report: NON-FASTING; NON-FASTING; NON-FASTING; NON-FASTING; NON-FAST TSH W/REFLEX TO FT4 1.23 0.40-4.50 mIU/L VITAMIN D,25-OH,TOTAL,IA (17 306) Reviewed date:09/21/2024 02:46:45 PM Interpretation: Performing Lab:AMI, [facility] [address], [place] Alex Chao Notes/Report: NON-FASTING; NON-FASTING; NON-FASTING; NON-FASTING; NON-FAST VITAMIN D,25-OH,TOTAL,IA 46 30-100 ng/mL Vitamin D Status 25-OH Vitamin D: Deficiency: <20 ng/mL Insufficiency: 20 - 29 ng/mL Optimal: > or = 30 ng/mL For 25-OH Vitamin D testing on patients on D2-supplementation and patients for whom quantitation of D2 and D3 fractions is required, the QuestAssureD(TM) 25-OH VIT D, (D2,D3), LC/MS/MS is recommended: order code [id number] (patients >2yrs). See Note 1 Note 1 For additional information, please refer to http://education.LOAG/faq/VXV963 (This link is being provided for informational/ educational purposes only.) Medications Medication SIG (Take, Route, Frequency, Duration) Notes Start Date End Date Status Flomax 0.4 MG 1 CAP(S) ORALLY ONCE A DAY; Duration: 90 *Please review and pick correct strength-formulat ion from [employer] options. If intended option is not shown, discontinue and re-order from Quick Search* Active Zinc 50 MG QD Active Corlanor 5 MG 1 tab(s) orally 2 times a day (with meals); Duration: 90 days Active ALLERGY INJECTIONS WEEKLY A ctive Synthroid 137 MCG 1 tab(s) orally once a day; Duration: 30 days Active Mupirocin 2 % 1 rodrigo applied topically 3 times a day; Duration: 5 days 03/09/2024 Active Levocetirizine Dihydrochloride 5 MG 1 tab(s) orally once a day (in the evening) Active Entresto 24-26 MG 1 tab(s) orally once a day; Duration: 90 days Active Vitamin C 500 MG 1 tab(s) orally twice daily Active Gabapentin 100 MG 1 or 2 capsule at bedtime Orally Once a day as needed for nerve pain; Duration: 30 days 10/02/2024 Active Align 4 MG 1 CAP(S) ORALLY ONCE A DAY *Please review and pick correct strength-formulat ion from [employer] options. If intended option is not shown, discontinue and re-order from Quick Search* Active metFORMIN HCl 500 MG 1 tablet with a meal Orally daily; Duration: 90 days Active Fluticasone Propionate 50 MCG/ACT 2 sprays intranasally once a day prn Active Fenofibrate 145 MG TAKE 1 TABLET BY MOUTH ONCE DAILY; Duration: 90 Active Vitamin D3 125 MCG (5000 UT) 1 cap(s) orally once a day Active CORLANOR 5 mg 1 tab(s) orally 2 times a day (with meals); Duration: 90 days Active ALPRAZolam 0.5 MG TAKE 1 TABLET BY MOUTH 3 TIMES A DAY NEEDED; Duration: 30 11/27/2024 Active Dutasteride 0.5 MG TAKE 1 CAPSULE BY MOUTH DAILY; Duration: 90 Active Excedrin Extra Strength 1 TAB ORALLY 2-3 TIMES DAILY PRN *Please review and pick correct strength-formulat ion from [employer] options. If intended option is not shown, discontinue and re-order from Quick Search* Active Montelukast Sodium 10 MG TAKE 1 TABLET BY MOUTH EVERY EVENING; Duration: 90 Active Creon [id number] UNIT TAKE 1 CAPSULE BY MOUTH BEFORE MEALS; Duration: 30 Active Advair Diskus 250-50 MCG/ACT 1 PUFF(S) INHALED 2 TIMES A DAY; Duration: 30 days Active Albuterol Sulfate HFA 108 (90 Base) MCG/ACT 1 puff as needed Inhalation every 6 hours; Duration: 30 days Active Immunizations Vaccine Route Administration Date Status Comme nts Zostavax (Shingles) SC Subcutaneous 08/05/2014 Administere d SHINGRIX Unknown 08/13/2022 Administered RSV Unknown 04/18/2023 Administered Prevnar PCV-13 (Pneumococcal conjugate 13) IM Intramuscular 07/29/2016 Administered Pneumococcal Vaccine IM Intramuscular 02/23/2008 Administe red Influenza-Fluzone 3+years (NON-MEDICARE) IM Intramuscular 03/11/2016 Administered Influenza (Fluzone)--Medicare only IM Intramuscular 03/14/2015 Administered Influenza (Fluzone)--Medicare only IM Intramuscular 04/11/2017 Administered Influenza (Fluzone)--Medicare only IM Intramuscular 02/02/2018 Administered Fluzone High Dose IM Intramuscular 03/30/2019 Administered Fluzone High Dose IM Intramuscular 02/07/2020 Administered Fluzone High Dose IM Intramuscular 02/16/2021 Administered Fluzone High Dose IM Intramuscular 03/17/2023 Administered Fluzone High Dose Unknown 02/06/2024 Administered Fluvirin--Influenza vaccine 3+ year IM Intramuscular 03/20/2013 Administered fluvirin lot # [id number] exp date 07/21/2013 Problems Problem Type SNOMED Code ICD Code Onset Dates Problem Status W/U Status Risk Notes Problem Information temporarily unavailable Hypothyroidism, unspecified (E03.9) Active confirmed Problem Information temporarily unavailable Type 2 diabetes mellitus with foot ulcer (E11.621) Active confirmed Problem Information temporarily unavailable Type 2 diabetes mellitus with other skin complications (E11.628) Active confirmed Problem Information temporarily unavailable Type 2 diabetes mellitus without complications (E11.9) Active confirmed Problem Information temporarily unavailable Overweight (E66.3) Active confirmed Problem Information temporarily unavailable Hyperlipidemia, unspecified (E78.5) Active confirmed Problem Information temporarily unavailable Anxiety disorder, unspecified (F41.9) Active confirmed Problem Information temporarily unavailable Essential (primary) hypertension (I10) Active confirmed Problem Information temporarily unavailable Atrioventricular block, complete (I44.2) Active confirmed Problem Information temporarily unavailable Heart disease, unspecified (I51.9) Active confirmed Problem Information temporarily unavailable Corns and callosities (L84) Active confirmed Problem Information temporarily unavailable Non-pressure chronic ulcer of other part of left foot with fat layer exposed (L97.522) Active confirmed Problem Information temporarily unavailable Other obstructive and reflux uropathy (N13.8) Active confirmed Problem Information temporarily unavailable Anxiety disorder (F41.9) Active confirmed Problem Information temporarily unavailable Vitamin D deficiency (E55.9) Active confirmed Problem Information temporarily unavailable Essential hypertension (I10) Active confirmed Problem Information temporarily unavailable Callus of foot (L84) Active confirmed Problem Information temporarily unavailable BMI 31.0-31.9,adult (Z68.31) Active confirmed Problem Information temporarily unavailable BMI 33.0-33.9,adult (Z68.33) Active confirmed Problem Information temporarily unavailable Vertigo (R42) Active confirmed Problem Information temporarily unavailable BMI 32.0-32.9,adult (Z68.32) Active confirmed Problem Information temporarily unavailable Hyperlipidemia, unspecified (E78.5) Active confirmed Problem Information temporarily unavailable Diabetes mellitus type 2 with coma (E11.69) Active confirmed Problem Information temporarily unavailable Frequent falls (R29.6) Active confirmed Problem Information temporarily unavailable History of MRSA infection (Z86.14) Active confirmed Problem Information temporarily unavailable Microalbuminuria (R80.9) Active confirmed Problem Information temporarily unavailable Moderate persistent asthma without complication (J45.40) Active confirmed Problem Information temporarily unavailable Hypothyroidism, unspecified type (E03.9) Active confirmed Problem Information temporarily unavailable 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) Active confirmed Problem Information temporarily unavailable 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) Active confirmed Problem Information temporarily unavailable MRSA (methicillin resistant staph aureus) culture positive (Z22.322) Active confirmed Problem Information temporarily unavailable Benign prostatic hyperplasia with lower urinary tract symptoms (N40.1) Active confirmed Problem Information temporarily unavailable Anxiety attack (F41.0) Active confirmed Problem Information temporarily unavailable Neuropathy of both feet (G57.93) Active confirmed Problem Information temporarily unavailable Neuropathy of left foot (G57.92) Active confirmed Problem Information temporarily unavailable Hammertoe of left foot (M20.42) Active confirmed Problem Information temporarily unavailable Osteomyelitis of left foot, unspecified type (M86.9) Active confirmed Problem Information temporarily unavailable Solar lentigo (L81.4) Active confirmed Problem Information temporarily unavailable Osteomyelitis of toe of left foot (M86.9) Active confirmed Problem Information temporarily unavailable Poor balance (R26.89) Active confirmed Problem Information temporarily unavailable Tobacco dependence due to chewing tobacco (F17.220) Active confirmed Problem Information temporarily unavailable Neuralgia of both lower extremities (G57.93) Active confirmed Problem Information temporarily unavailable Heart failure with reduced ejection fraction (I50.20) Active confirmed Problem Information temporarily unavailable Ulcer of right foot limited to breakdown of skin (L97.511) Active confirmed Problem Information temporarily unavailable Third degree AV block (I44.2) Active confirmed Problem Information temporarily unavailable S/P cardiac pacemaker procedure (Z95.0) Active confirmed Problem Information temporarily unavailable 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) Active confirmed Vital Signs Heart Rate 88 /min 01/03/2025 Temperature 97.5 degrees Fahrenheit 01/03/2025 Blood pressure diastolic 72 mm Hg 01/03/2025 Height 6 ft 2.5 in in 01/03/2025 Blood pressure systolic 118 mm Hg 01/03/2025 Weight 233.6 lbs 01/03/2025 BMI 29.59 kg/m2 01/03/2025 Encounters Encounter Location Date Provider Diagnosis [facility] [address] [place] [address] 03/22/2024 Bushra Mccarty [facility] [address] [place], [place] [address] 08/25/2024 Provider Migration Chronic combined systolic and diastolic CHF (congestive heart failure) I50.42 [facility] [address] [place], [place] [address] 03/08/2024 Bushra Bibiana Anxiety disorder, unspecified F41.9 ; 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 ; Neuralgia of both lower extremities G57.93 ; Hypothyroidism, unspecified type E03.9 ; Vitamin D deficiency E55.9 ; Abrasion T14.8XXA ; Chronic combined systolic and diastolic CHF (congestive heart failure) I50.42 ; Frequent falls R29.6 and Poor balance R26.89 [facility] [address] [place], [place] [address] 06/21/2024 Bushra Bibiana 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 ; Medicare annual wellness visit, subsequent Z00.00 ; Anxiety disorder, unspecified F41.9 ; Neuralgia of both lower extremities G57.93 ; Hypothyroidism, unspecified type E03.9 ; Vitamin D deficiency E55.9 ; Chronic combined systolic and diastolic CHF (congestive heart failure) I50.42 ; Frequent falls R29.6 ; Poor balance R26.89 ; Overweight E66.3 and Body mass index [BMI] 29.0-29.9, adult Z68.29 [facility] [address] [place] [address] 09/20/2024 Bushra Bibiana 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 ; Anxiety disorder, unspecified F41.9 ; Neuralgia of both lower extremities G57.93 ; Hypothyroidism, unspecified type E03.9 ; Vitamin D deficiency E55.9 and Chronic combined systolic and diastolic CHF (congestive heart failure) I50.42 [facility] [address] [place] [address] [facility]ath[facility] M79.2 and Callus of foot L84 [facility] [address] [place] [address] 01/03/2025 [facility] 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 ; Anxiety disorder, unspecified F41.9 ; Neuralgia of both lower extremities G57.93 ; Hypothyroidism, unspecified type E03.9 ; Vitamin D deficiency E55.9 ; Chronic combined systolic and diastolic CHF (congestive heart failure) I50.42 ; Callus of foot L84 and Neuropathic pain M79.2 [facility] [address] [place] [address] 03/08/2024 Bushra Bibiana [facility] [address] [place] [address] 03/08/2024 Jignesh Besson [facility] [address] [place] [address] 06/21/2024 Jignesh Besson [facility] [address] [place] [address] 10/04/2024 Bushra Bibiana Ulcer of right foot limited to breakdown of skin L97.511 [facility] [address] [place] [address] 10/11/2024 Bushra Bibiana [facility] [address] [place] [address] 11/22/2024 Bushra Mccarty ASTHMA NOS 493.90 Assessments Encounter Date Diagnosis (ICD Code) Assessment Notes Treatment Notes Treatment Clinical Notes Section Notes 03/08/2024 Anxiety disorder, unspecified (ICD-10 - F41.9) has been on xanax for many years, still tolerating well and likely to do quite poorly with any changes 06/21/2024 Type 2 diabetes mellitus with other skin complications (ICD-10 - E11.628) goal A1C < 7, no changes recommended, monitoring labs are UTD 06/21/2024 Medicare annual wellness visit, subsequent (ICD-10 - Z00.00) UTD for age. Still high fall risk due to his lower extremity neuropathy but improved some with therapy recently. 10/02/2024 Callus of foot (ICD-10 - L84) No evidence of complication at this time, saw podiatry recently. I encouraged him to monitor this closely every day and to let me or podiatry know of any additional symptoms. 10/02/2024 Neuropathic pain (ICD-10 - M79.2) Chronic neuropathy symptoms, likely multifactorial. Reasonable to try low-dose gabapentin at night on a as needed basis initially. Possible side effects and return precautions reviewed. If his symptoms persist or certainly if he has any exertional symptoms we will need to evaluate for small vessel disease with ABIs or CTA of the lower extremities. 10/04/2024 Ulcer of right foot limited to breakdown of skin (ICD-10 - L97.511) 11/22/2024 ASTHMA NOS (ICD9-CM - 493.90) 01/03/2025 Type 2 diabetes mellitus with other skin complications (ICD-10 - E11.628) goal A1C < 7, no changes recommended, monitoring labs updated as noted 01/03/2025 Anxiety disorder, unspecified (ICD-10 - F41.9) has been on xanax for many years, still tolerating well and likely to do quite poorly with any changes 09/20/2024 Type 2 diabetes mellitus with other skin complications (ICD-10 - E11.628) goal A1C < 7, no changes recommended, monitoring labs updated as noted 09/20/2024 Anxiety disorder, unspecified (ICD-10 - F41.9) has been on xanax for many years, still tolerating well and likely to do quite poorly with any changes 03/08/2024 Neuralgia of both lower extremities (ICD-10 - G57.93) Neuropathy labs normal. increases risk of complications in feet, falls, etc. continue podiatry FU 09/20/2024 Neuralgia of both lower extremities (ICD-10 - G57.93) Neuropathy labs normal. increases risk of complications in feet, falls, etc. continue podiatry FU 01/03/2025 Neuralgia of both lower extremities (ICD-10 - G57.93) Neuropathy labs normal. increases risk of complications in feet, falls, etc. continue podiatry FU 06/21/2024 Anxiety disorder, unspecified (ICD-10 - F41.9) has been on xanax for many years, still tolerating well and likely to do quite poorly with any changes 03/08/2024 Type 2 diabetes mellitus with other skin complications (ICD-10 - E11.628) goal A1C < 7, no changes recommended, monitoring labs are UTD 06/21/2024 Neuralgia of both lower extremities (ICD-10 - G57.93) Neuropathy labs normal. increases risk of complications in feet, falls, etc. continue podiatry FU 03/08/2024 Hypothyroidism, unspecified type (ICD-10 - E03.9) continue oral replacement, TSH in goal range 01/03/2025 Hypothyroidism, unspecified type (ICD-10 - E03.9) continue oral replacement, TSH in goal range 09/20/2024 Hypothyroidism, unspecified type (ICD-10 - E03.9) continue oral replacement, TSH in goal range 09/20/2024 Vitamin D deficiency (ICD-10 - E55.9) continue oral replacement 01/03/2025 Vitamin D deficiency (ICD-10 - E55.9) continue oral replacement 03/08/2024 Vitamin D deficiency (ICD-10 - E55.9) continue oral replacement 06/21/2024 Hypothyroidism, unspecified type (ICD-10 - E03.9) continue oral replacement, TSH in goal range 06/21/2024 Vitamin D deficiency (ICD-10 - E55.9) continue oral replacement 03/08/2024 Abrasion (ICD-10 - T14.8XXA) 09/20/2024 Chronic combined systolic and diastolic CHF (congestive heart failure) (ICD-10 - I50.42) continue [place], cardiology following 01/03/2025 Chronic combined systolic and diastolic CHF (congestive heart failure) (ICD-10 - I50.42) continue Entresto, cardiology following 03/08/2024 Chronic combined systolic and diastolic CHF (congestive heart failure) (ICD-10 - I50.42) 06/21/2024 Chronic combined systolic and diastolic CHF (congestive heart failure) (ICD-10 - I50.42) continue Entresto, cardiology following 08/25/2024 Chronic combined systolic and diastolic CHF (congestive heart failure) (ICD-10 - I50.42) 06/21/2024 Frequent falls (ICD-10 - R29.6) 03/08/2024 Frequent falls (ICD-10 - R29.6) 01/03/2025 Callus of foot (ICD-10 - L84) [...] ABIs or CTA of the lower extremities. 03/08/2024 Poor balance (ICD-10 - R26.89) 06/21/2024 Poor balance (ICD-10 - R26.89) 06/21/2024 Overweight (ICD-10 - E66.3) complicates all aspects of care, CC cardiac diet and regular activity encouraged 06/21/2024 Body mass index [BMI] 29.0-29.9, adult (ICD-10 - Z68.29) Plan Of Treatment Pending Test Test Name Order Date N-Prostate Specific Antigen (PSA) 2006 Urinalysis 07/26/2006 MRI : Foot, Left 02/15/2023 Glucose (in house) 12/20/2006 N-HbA1C 07/26/2006 Cardiac GXT 12/14/2010 EKG : In House 11/03/2009 Holter Monitor, 48 hour 10/13/2011 Physical Therapy : Wound Care 02/01/2023 Physical Therapy : Wound Care 10/04/2024 C-TESTOSTERONE 04/24/2015 C-TESTOSTERONE 10/05/2011 C-TESTOSTERONE 06/28/2011 C-TESTOSTERONE 07/22/2010 C-TESTOSTERONE 07/04/2009 C-TESTOSTERONE 12/09/2009 C-CBC 07/22/2010 C-CBC 06/28/2011 C-CBC 12/01/2015 C-CBC 06/06/2009 C-CBC 07/15/2014 C-CBC 10/05/2011 C-CBC 04/24/2015 C-CMP 04/24/2015 C-CMP 07/16/2019 C-CMP 01/24/2019 C-CMP 10/05/2011 C-CMP 05/04/2018 C-CMP 05/08/2020 C-CMP 11/13/2020 C-CMP 06/06/2009 C-CMP 07/15/2014 C-CMP 04/29/2016 C-CMP 12/01/2015 C-CMP 06/28/2011 C-CMP 07/22/2010 C-CMP 10/28/2016 C-CMP 04/28/2017 C-MICROALBUMIN 04/28/2017 C-MICROALBUMIN 07/16/2019 C-MICROALBUMIN 10/28/2016 C-MICROALBUMIN 04/29/2016 C-MICROALBUMIN 05/04/2018 C-MICROALBUMIN 05/08/2020 C-MICROALBUMIN 11/13/2020 C-MICROALBUMIN 01/24/2019 C-LIPID PANEL 01/24/2019 C-LIPID PANEL 07/16/2019 C-LIPID PANEL 12/01/2015 C-LIPID PANEL 04/24/2015 C-LIPID PANEL 06/06/2009 C-LIPID PANEL 10/05/2011 C-LIPID PANEL 05/04/2018 C-LIPID PANEL 11/13/2020 C-LIPID PANEL 05/08/2020 C-LIPID PANEL 10/28/2016 C-LIPID PANEL 04/29/2016 C-LIPID PANEL 09/15/2009 C-LIPID PANEL 04/28/2017 C-LIPID PANEL 06/28/2011 C-LIPID PANEL 07/22/2010 C-MAGNESIUM 07/15/2014 C-MAGNESIUM 04/24/2015 C-TSH 06/06/2009 C-TSH 04/24/2015 C-TSH 12/01/2015 C-TSH 07/16/2019 C-TSH 01/24/2019 C-TSH 05/08/2020 C-TSH 11/13/2020 C-TSH 10/05/2011 C-TSH 05/04/2018 C-TSH 07/15/2014 C-TSH 04/29/2016 C-TSH 10/28/2016 C-TSH 07/22/2010 C-TSH 06/28/2011 C-TSH 04/28/2017 C-TSH 09/15/2009 C-TSH 12/09/2009 C-FREE T4 04/29/2016 C-FREE T4 07/15/2014 C-FREE T4 04/24/2015 C-PSA 11/13/2020 C-PSA 05/04/2018 C-PSA 12/01/2015 C-PSA 07/15/2014 C-PSA 07/16/2019 C-PSA 06/06/2009 C-PSA 04/28/2017 C-PSA 06/28/2011 C-VITAMIN B12 09/15/2009 C-VITAMIN B12 05/30/2013 C-VITAMIN B12 10/05/2011 C-VITAMIN D, 1,25-DIHYDROXY 10/05/2011 C-URINE CULTURE 04/24/2012 C-HGBA1C 07/15/2014 C-HGBA1C 06/06/2009 C-HGBA1C 12/01/2015 C-HGBA1C 04/29/2016 C-HGBA1C 07/22/2010 C-HGBA1C 04/28/2017 C-HGBA1C 10/28/2016 C-HGBA1C 06/28/2011 C-HGBA1C 10/05/2011 C-HGBA1C 11/13/2020 C-HGBA1C 05/04/2018 C-HGBA1C 05/08/2020 C-HGBA1C 08/03/2018 C-HGBA1C 04/24/2015 C-HGBA1C 01/24/2019 C-HGBA1C 07/16/2019 C-URINALYSIS 01/31/2018 C-VITAMIN D, 25-HYDROXY 01/24/2019 C-VITAMIN D, 25-HYDROXY 07/16/2019 C-VITAMIN D, 25-HYDROXY 04/24/2015 C-VITAMIN D, 25-HYDROXY 05/04/2018 C-VITAMIN D, 25-HYDROXY 11/13/2020 C-VITAMIN D, 25-HYDROXY 05/08/2020 C-VITAMIN D, 25-HYDROXY 06/04/2009 C-VITAMIN D, 25-HYDROXY 07/22/2010 C-VITAMIN D, 25-HYDROXY 06/28/2011 C-VITAMIN D, 25-HYDROXY 12/09/2009 C-VITAMIN D, 25-HYDROXY 09/15/2009 C-VITAMIN D, 25-HYDROXY 04/28/2017 C-VITAMIN D, 25-HYDROXY 10/28/2016 C-VITAMIN D, 25-HYDROXY 07/15/2014 C-VITAMIN D, 25-HYDROXY 04/29/2016 C-VITAMIN D, 25-HYDROXY 06/06/2009 C-CRP 11/04/2017 T-[id number],UR 03/06/2012 Lipid Panel 10/18/2012 M-Basic Metabolic Panel 07/01/2022 M-Magnesium 07/01/2022 Physical Therapy : Vertigo 01/20/2023 Physical Therapy : Gait training and cor e strengthening 03/08/2024 Future Test Test Name Order Date C-TSH 12/13/2011 C-PSA 12/13/2011 Next Appt Details Provider Name:Bushra Hughes ce, 04/11/2025 03:30:00 PM, [address], [address], [place], [address], Insurance Providers Payer Name Payer Address Payer Phone Subscriber Number Group Number Insured Name Patient Relationship to Insured Coverage Start Date Coverage End Date [employer] [id number] [place] [address] [id number] Clay Jones Self - patient is the insured Medications Administered Medication Instructions Date of Administration Dosage Notes Triamcinolone Acetonide 40mg Injection 07/18/2018 1 mL Medical (General) History Medical History History ICD Code asthma allergies type II diabetes hypertension osteoarthritis hypertriglyceridemia hypothyroidism IBS/constipation hypogonadism anxiety cataracts Colonoscopy 2016, no polyps 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
== END 2025-01-16 23:59 | disposition home or self-care (01) ==
LOC: RT 12:54
PROVIDERS: PCP Internal Medicine Adolescent Medicine; Visit Provider Internal Medicine
DX: I08.8 Other rheumatic multiple valve diseases (principal); I31.39 Other pericardial effusion (noninflammatory); I11.0 Hypertensive heart disease with heart failure; I50.30 Unspecified diastolic (congestive) heart failure; E78.5 Hyperlipidemia, unspecified; R00.0 Tachycardia, unspecified; Z95.0 Presence of cardiac pacemaker; R93.1 Abnormal findings on diagnostic imaging of heart and coronary circulation
CPT/HCPCS: 93306

== ENCOUNTER 2025-03-01 15:05 | Outpatient (CLI) | payer MEDICARE, SELFPAY ==
--- NOTE | 2025-03-01 15:15 | CA_ITS ---
APPROVED REPORT EXAM: Limited 2D Echocardiogram with contrast [employer] Att[employer]: RT Abeba(R) Ht: 6 ft 3 in Wt: 224lbs BSA: 2.30 BP: 122/74 mmHg Indications: limited echo with definity per md order. Pericardial effusion on previous echo Echo Enhancing Agent Indication: Endocardial border delineation Agent(s) / Amount(s) Used: Definity 2 cc M-Mode Dimensions RVDd 2.12 cm (0.9-2.6) LVDd 6.20 cm (3.5-5.7) LVDs 5.14 cm (3.5-5.7) IVSd 0.76 cm (0.6-1.1) PWd 0.89 cm (0.6-1.1) EF (Teich) 35.00% FS 17.10% EDV (Teich) 194.00 mL ESV (Teich) 126.10 mL Other Information Study Quality: Technically Difficult Conclusion This is a limited TTE to evaluate for LV systolic function and pericardial effusion. Limited windows are obtained. Ultrasound enhancing agent is administered. The left ventricle is normal in size. There is increased LV wall thickness. There is mild global hypokinesis present. The septum is asynchronous. LVEF is 45%. There is no evidence of LV thrombus after administration of ultrasound enhancing agent. There is trivial, anterior pericardial effusion present. No echo indications of tamponade or chamber collapse. Compared to prior study from 01/16/2025, the LV systolic function is unchanged. The size of the pericardial effusion is slightly improved. Electronically signed by : Jessy Arellano MD 03/02/2025 23:14:57
[2025-03-01] MEDS: DEFINITY US ECHO CONTRAST 2ML INJ 2 MG IV (15:54)
== END 2025-03-01 23:59 | disposition home or self-care (01) ==
LOC: RT 15:06
PROVIDERS: PCP Internal Medicine Adolescent Medicine; Visit Provider Internal Medicine
DX: I11.9 Hypertensive heart disease without heart failure (principal); I31.39 Other pericardial effusion (noninflammatory); E78.5 Hyperlipidemia, unspecified; R00.0 Tachycardia, unspecified; R93.1 Abnormal findings on diagnostic imaging of heart and coronary circulation; Z95.0 Presence of cardiac pacemaker
CPT/HCPCS: 93308; Q9957

== ENCOUNTER 2025-04-05 12:54 | Outpatient (CLI) | payer MEDICARE, SELFPAY ==
[2025-04-05 13:14] LABS: Blood Urea Nitrogen 16 mg/dl (9-20); Creatinine,Serum 0.90 mg/dl (0.66-1.25); Estimated Glomerular Filt Rate 81 ml/min (>60); GFR (African American) 98 ML/MIN (>60)
--- NOTE | 2025-04-05 13:30 | CT_ITS ---
FINAL REPORT TECHNIQUE: Axial CT of the abdomen and pelvis, without and with IV contrast. This study was performed with techniques to keep radiation doses as low as reasonably achievable, (ALARA). Individualized dose reduction techniques using automated exposure control or adjustment of mA and/or kV according to the patient''s size were employed. CLINICAL HISTORY: Rule out intra-abdominal process FINDINGS: Abdomen: Lung bases are clear. Liver has an unremarkable CT appearance. There is a benign cyst in the lateral hepatic lobe. The spleen, pancreas and adrenal glands are unremarkable. Precontrast imaging shows no renal stone disease. Postcontrast imaging of the kidneys shows no mass or obstruction. No bowel obstruction or fluid collection is seen. There is probable cholelithiasis without acute gallbladder disease. Hazy density is seen in the mesenteric fat with borderline adenopathy. 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 Pelvis: The appendix is enlarged as a normal variant without evidence of acute inflammatory process. Pelvic bowel loops are unremarkable. No fluid collection or adenopathy is seen. Prostate is mildly enlarged. There is no pelvic adenopathy.. IMPRESSION: 1. No evidence of renal mass 2. Benign hepatic cyst 3. Probable cholelithiasis 4. Mild prostate enlargement 5. Findings suggestive of mesenteric panniculitis Authenticated and ERN
[2025-04-05] MEDS: BARIUM SULFATE(READI-CAT2);450ML BOTTLE 450 ML PO (13:59)
[2025-04-05] MEDS: IOPAMIDOL-370 (76%);100ML BOTTLE 75 ML IV (13:59)
[2025-04-05] MEDS: SODIUM CHLORIDE 0.9% 10ML SYR (RAD ONLY) 10 ML IV (13:59)
== END 2025-04-05 23:59 | disposition home or self-care (01) ==
LOC: RAD 12:55
PROVIDERS: PCP Nurse Practitioner Family; Visit Provider Internal Medicine Gastroenterology
DX: K76.89 Other specified diseases of liver (principal); R93.2 Abnormal findings on diagnostic imaging of liver and biliary tract; R93.5 Abnormal findings on diagnostic imaging of other abdominal regions, including retroperitoneum; N40.0 Benign prostatic hyperplasia without lower urinary tract symptoms; R19.4 Change in bowel habit; R10.30 Lower abdominal pain, unspecified
CPT/HCPCS: 36415; 74178; 82565; 84520; Q9967

== ENCOUNTER 2025-04-09 12:20 | Outpatient (CLI) | payer MEDICARE, SELFPAY ==
--- NOTE | 2025-04-09 | CA_ITS ---
APPROVED REPORT Exam: Pharmacologic Technologist: Lizbet June Ht: 6 ft 3 in Wt: 218 lbs BSA: 2.28 m2 HR: 60 bpm BP: 127/71 mmHg Indications: Hypertension, Tachycardia, Pericardial effusion Stress Test Details Test: Lexiscan HR Resting HR: 60 bpm Max Heart Rate (APMHR): 138 bpm Max HR Achieved: 82 bpm Target HR (85% APMHR): 117 bpm % of APMHR: 59 Recovery HR: 68 bpm BP Resting BP: 127.0/71.0 mmHg Max BP: 132.0/66.0 mmHg Recovery BP: 117.0/62.0 mmHg ECG Resting ECG: Paced Stress ECG Conclusion Lungs clear to auscultation Symptoms: None Arrhythmias/Ectopy: PVC ST-T Changes: Less than 0.[address] segment changes. Conclusion: Non-diagnostic ECG/Lexiscan. Electronically signed by : Jessy Arellano MD 04/10/2025 21:30:29
--- NOTE | 2025-04-09 13:00 | NM_ITS ---
APPROVED REPORT Exam: Nuclear Stress Test Indication: hypertension..diabets..family hx Patient Location: Outpatient Ht: 6 ft 3 in Wt: 222 lbs HR: 74 bpm BP: 127/71 mmHg BSA: 2.29 m2 TID: 1.18 BMI: 27.7 History: hypertension..diabetes..family hx Procedure: Patient received 0.4 mg of intravenous Lexiscan, resting heart rate 74 bpm, resting blood pressure 127/71 mmHg, with Lexiscan maximum heart rate achieved was 82 bpm which is 85 % of the maximum predicted heart rate and blood pressure was 132/66 mmHg. With Lexiscan, patient denied any complaint of chest pain. The patient was not able to lay on his abdomen for prone images. Cardiac Stress and Resting SPECT Images: Cardiac Stress and Resting SPECT images were obtained using technetium 99m Myoview 32.6 mCi stress and 10.50 mCi at rest. The patient could not lie on his abdomen. Therefore, prone press imaging could not be performed. Resting and stress imaging in supine positions demonstrate a medium sized, moderate, predominantly fixed perfusion defect in the anterior LV wall. There is a small region of reversibility towards the distal anterior LV wall. There is also a large sized, moderate, fixed perfusion defect in the inferior LV wall. Gated imaging demonstrates low-normal global LV systolic function. LVEF is calculated at 52%. Conclusion: Medium sized, moderate, predominantly fixed perfusion defect in the anterior LV wall. There is a small region of reversibility towards the distal anterior LV wall. Findings are suggestive of partial reversible ischemia. There is also a large sized, moderate, fixed perfusion defect in the inferior LV wall. Gated imaging demonstrates low-normal global LV systolic function. LVEF is calculated at 52%. Electronically signed by : Jessy Arellano MD 04/10/2025 21:24:32
[2025-04-09 13:41] VITALS: BP 127/71; PULSE 60; RESP 16
[2025-04-09] MEDS: SODIUM CHLORIDE 0.9% 10ML SYR (RAD ONLY) 10 ML IV ×2 (13:56→13:57)
[2025-04-09] MEDS: ISOTOPE MYOVIEW (PER STUDY) 1 DOSE IV (13:56)
== END 2025-04-09 23:59 | disposition home or self-care (01) ==
LOC: RAD 12:21
PROVIDERS: PCP Nurse Practitioner Family; Visit Provider Internal Medicine
DX: I49.3 Ventricular premature depolarization (principal); E78.5 Hyperlipidemia, unspecified; I10 Essential (primary) hypertension; I31.39 Other pericardial effusion (noninflammatory); E11.9 Type 2 diabetes mellitus without complications; R94.39 Abnormal result of other cardiovascular function study; R00.0 Tachycardia, unspecified; R07.9 Chest pain, unspecified
CPT/HCPCS: 78452; 93017; 93018; A9502; J2785